=== PATIENT | male | born 1955 | race Caucasian/White ===

== ENCOUNTER 2017-04-15 22:57 | Emergency (ER) | payer OTHER ==
[2017-04-15 23:05] VITALS: BP 140/82; PULSE 98; TEMP 98.1; BMI 28.2
[2017-04-15] MEDS ORDERED: ALBUTEROL SO4 2.5/IPRATROPIUM 0.5 INH SOL 3 ML VIAL.NEB. NEB ONE ×2 (23:41→23:52)
--- NOTE | 2017-04-15 23:41 | PDOC ---
History of Present Illness - General History Source: Patient Exam Limitations: No Limitations - History of Present Illness Initial Comments: 04/15/17 23:46 The patient is a 62 year old male, with a significant past medical history of HTN, HLD, NSTEMI (October 2014, transferred to [facility]) and CT who presents to the emergency department with shortness of breath, chest pain and cough since yesterday. He describes his shortness of breath as worsened with exertion and relieved at rest. He describes his chest pain as a substernal pressure, ranging from mild to moderate, without radiation or modifying factors. He notes that his cough is dry in nature. The patient denies headache and dizziness. Denies fever, chills, nausea, vomit, diarrhea and constipation. Denies dysuria, frequency, urgency and hematuria. Allergies: None Past surgical history: Cardiac stent Social history: Cigarette use ( - 1 pack daily since age 12). No alcohol or drug use reported <Mann Gallo - Last Filed: 04/16/17 01:23> <Deann Mosquera - Last Filed: 04/16/17 01:43> - General Chief Complaint: Asthma Stated Complaint: ASTHMA Time Seen by Provider: 04/15/17 23:29 Past History <Mann Gallo - Last Filed: 04/16/17 01:23> - Past Medical History HTN: Yes - Psycho/Social/Smoking Cessation Hx Anxiety: No Suicidal Ideation: No Smoking History: Never smoked Have you smoked in the past 12 months: No Number of Cigarettes Smoked Daily: 20 Information on smoking cessation initiated: No Hx Alcohol Use: No Drug/Substance Use Hx: No Substance Use Type: None <Deann Mosquera - Last Filed: 04/16/17 01:43> - Past Medical History Allergies/Adverse Reactions: Allergies Allergy/AdvReac Type Severity Reaction Status Date / Time No Known Allergies Allergy Verified 04/15/17 23:05 Home Medications: Ambulatory Orders Valsartan [Diovan] 160 mg PO DAILY 10/05/14 Albuterol Sulfate [Proair Respiclick] 90 mcg IH Q4HWA 04/15/17 Review of Systems - Review of Systems Able to Perform ROS?: Yes Comments:: 04/15/17 23:46 GENERAL/CONSTITUTIONAL: No fever or chills. No weakness. HEAD, EYES, EARS, NOSE AND THROAT: No change in vision. No ear pain or discharge. No sore throat.- CARDIOVASCULAR: (+) chest pain and shortness of breath RESPIRATORY: (+) Cough. No wheezing, or hemoptysis. GASTROINTESTINAL: No nausea, vomiting, diarrhea or constipation. GENITOURINARY: No dysuria, frequency, or change in urination. MUSCULOSKELETAL: No joint or muscle swelling or pain. No neck or back pain. SKIN: No rash NEUROLOGIC: No headache, vertigo, loss of consciousness, or change in strength/ sensation. ENDOCRINE: No increased thirst. No abnormal weight change HEMATOLOGIC/LYMPHATIC: No anemia, easy bleeding, or history of blood clots. ALLERGIC/IMMUNOLOGIC: No hives or skin allergy. <Mann Gallo - Last Filed: 04/16/17 01:23> *Physical Exam - Vital Signs Last Vital Signs Temp Pulse Resp BP Pulse Ox 98.1 F 98 H 16 140/82 99 04/15/17 23:03 04/15/17 23:03 04/15/17 23:03 04/15/17 23:03 04/15/17 23:03 - Physical Exam Comments: 04/15/17 23:46 GENERAL: Awake, alert, and fully oriented HEAD: No signs of trauma, normocephalic, atraumatic EYES: PERRLA, EOMI, sclera anicteric, conjunctiva clear ENT: Auricles normal inspection, hearing grossly normal, nares patent, oropharynx clear without exudates. Moist mucosa NECK: Normal ROM, supple, no lymphadenopathy, JVD, or masses LUNGS: (+) In mild distress, speaks full sentences, wheezing. HEART: Regular rate and rhythm, normal S1 and S2, no murmurs, rubs or gallops, peripheral pulses normal and equal bilaterally. ABDOMEN: Soft, nontender, normoactive bowel sounds. No guarding, no rebound. No masses EXTREMITIES : Normal inspection, Normal range of motion, no edema. No clubbing or cyanosis. NEUROLOGICAL: Cranial nerves II through XII grossly intact. Normal speech, normal gait, no focal sensorimotor deficits SKIN: Warm, Dry, normal turgor, no rashes or lesions noted. <Mann Gallo - Last Filed: 04/16/17 01:23> - Vital Signs Last Vital Signs Temp Pulse Resp BP Pulse Ox 98.1 F 98 H 16 140/82 99 04/15/17 23:03 04/15/17 23:03 04/15/17 23:03 04/15/17 23:03 04/15/17 23:03 <DemetriDeannpaula Branch - Last Filed: 04/16/17 01:43> Heart Score/ECG Review #1 ECG reviewed & interpreted by me at: 00:02 04/15/17 23:52 Ventricular rate: 87 bpm Normal sinus rhythm Possible left atrial enlargement Left ventricular hypertrophy Nonspecific T wave abnormality Prolonged QT <Mann Gallo - Last Filed: 04/16/17 01:23> - History History: Slightly suspicious - Electrocardiogram EKG: Non specific repolarization disturbance - Age Age: 45-65 - Risk Factors Risk Factors Heart Score: Yes Smoking History, Yes Positive family hx of cardiac disease Based on the list above the patient has:: 1-2 risk factors (pt is refusing admission or repeat cardiac enzymes. He wants to leave now) - Troponin Troponin: 1-3x normal limit - Score Heart Score - Total: 4 <Deann Mosquera - Last Filed: 04/16/17 01:43> ED Treatment Course - LABORATORY CBC & Chemistry Diagram: 04/16/17 00:01 04/16/17 00:01 <Mann Gallo - Last Filed: 04/16/17 01:23> - LABORATORY CBC & Chemistry Diagram: 04/16/17 00:01 04/16/17 00:01 <Deann Mosquera - Last Filed: 04/16/17 01:43> Medical Decision Making - Medical Decision Making 04/16/17 01:36 62-year-old male with past medical history of end STEMI, coronary artery disease , hypertension, and a 15 year history of cigarette smoking presents with shortness of breath and chest pain. -pt received aspirin EKG did not show any acute changes from his prior First troponin was 0.07, and His was being admitted to have repeat troponin, cardiac consultation 04/16/17 01:39 Patient has multiple risk factors, he has a history of CAD,non-STEMI, a 50 year history of tobacco use, hypertension, hyperlipidemia The patient states that he was going to work tomorrow and explain to him that he was a grave risk of having a heart attack and possible cardiac arrest. Patient refused hospitalization and to stay for Repeat cardiac enzymes this evening and signed AGAINST MEDICAL ADVICE <Deann Mosquera - Last Filed: 04/16/17 01:43> *DC/Admit/Observation/Transfer - Attestations Scribe Attestion: 04/15/17 23:46 Documentation prepared by Mann Gallo, acting as medical administrative technician for Deann Mosquera MD <Mann Gallo - Last Filed: 04/16/17 01:23> <Deann Mosquera - Last Filed: 04/16/17 01:43> Diagnosis at time of Disposition: Exertional dyspnea, Wheezing Chest pain Qualifiers: Chest pain type: unspecified Qualified Code(s): R07.9 - Chest pain, unspecified - Discharge Dispostion Disposition: AGAINST MEDICAL ADVICE - Referrals Referrals: Vivek Almanza [Primary Care Provider] - - Patient Instructions Additional Instructions: PLEASE SEE YOUR PHYSICIAN SOON POSSIBLE THIS WEEK PLEASE RETURN FOR TREATMENT OF YOUR SYMPTOMS
[2017-04-15] MEDS ORDERED: ASPIRIN 81 MG CHEWABLE TABLETS PO ONE (23:47)
[2017-04-16 00:13] LABS: BASOPHIL 0.5 % (0-2.0); EOSINOPHIL 2.1 % (0-4.5); MCH 31.5 pg (25.7-33.7); MCHC 33.9 g/dl (32.0-35.9); MEAN CELL VOLUME 92.9 fl (80-96); MEAN PLT VOLUME 8.8 fl (7.5-11.1); NEUTROPHILS 65.5 % (42.8-82.8); PLATELET COUNT 162 K/MM3 (134-434); RDW 14.3 % (11.9-15.9); WHITE BLOOD COUNT 8.1 K/mm3 (4.0-10.0)
[2017-04-16 00:26] LABS: INR 1.15 (0.82-1.09); PROTHROMBIN TIME (PATIENT) 12.7 SEC (9.98-11.88)
[2017-04-16] MEDS ORDERED: ASPIRIN 81 MG CHEWABLE TABLETS ONE (00:29)
[2017-04-16 00:36] LABS: ALBUMIN 3.3 g/dl (3.4-5.0); ALK PHOS 64 U/L (45-117); ANION GAP 10 (8-16); BILIRUBIN,TOTAL 0.6 mg/dL (0.2-1.0); CO2 24 mmol/L (21-32); GLUCOSE,RANDOM 109 mg/dL (74-106); SGOT/AST 44 U/L (15-37); SGPT/ALT 50 U/L (12-78); TOT PROT 6.6 g/dl (6.4-8.2)
[2017-04-16 00:38] LABS: TROPONIN I 0.07 ng/ml (0.00-0.05)
[2017-04-16 00:55] LABS: ALLENS TEST POSITIVE; ART PUNCT SITE RIGHT RADIAL; ARTERIAL BLD GAS O2 SATURATION 93.7 % (90-98.9); ARTERIAL BLOOD GAS BASE EXCESS 2.2 meq/l (-2-2); ARTERIAL BLOOD GAS HCO3 26.4 meq/L (22-26); ARTERIAL BLOOD GAS pH 7.42 (7.35-7.45); LPM/O2% 21%; PT. ON O2? NO; TYPE OF O2 R/A
[2017-04-16 00:56] LABS: ARTERIAL BLOOD GAS PO2 66.5 mmHg (80-100)
[2017-04-16] MEDS ORDERED: METOPROLOL TARTRATE 25 MG TABLET (FP) PO ONE (01:38)
[2017-04-16] MEDS ORDERED: FUROSEMIDE 40 MG TABLET (FP) PO ONE (01:38)
[2017-04-16] MEDS ORDERED: METOPROLOL TARTRATE 25 MG TABLET (FP) ONE (01:42)
[2017-04-16] MEDS ORDERED: FUROSEMIDE 40 MG/4 ML INJECTABLE VIAL ONE (01:43)
[2017-04-16] MEDS ORDERED: FUROSEMIDE 40 MG/4 ML INJECTABLE VIAL IVPUSH ONE (01:54)
--- NOTE | 2017-04-16 21:35 | EKG ---
Test Reason : Blood Pressure : / mmHG Vent. Rate : 087 BPM Atrial Rate : 087 BPM P-R Int : 168 ms QRS Dur : 102 ms QT Int : 390 ms P-R-T Axes : 062 030 071 degrees QTc Int : 469 ms NORMAL SINUS RHYTHM POSSIBLE LEFT ATRIAL ENLARGEMENT LEFT VENTRICULAR HYPERTROPHY NONSPECIFIC ST AND T WAVE ABNORMALITY ABNORMAL ECG WHEN COMPARED WITH ECG OF 05-OCT-2014 07:14, VENT. RATE HAS INCREASED Confirmed by MARTHA VASQUEZ, CALLY ([id number]) on 04/16/2017 9:35:06 PM Referred By: Confirmed By:CALLY THOMAS MD
== END 2017-04-16 02:01 | disposition left against medical advice (07) ==
LOC: JER 22:57
PROC: 3E0F7GC Introduction of Other Therapeutic Substance into Respiratory Tract, Via Natural or Artificial Opening (ICD-10-PCS; principal; 2017-04-15)
PROC: 3E033GC Introduction of Other Therapeutic Substance into Peripheral Vein, Percutaneous Approach (ICD-10-PCS; 2017-04-15)
DX: R06.09 Other forms of dyspnea (principal); R06.2 Wheezing; I25.2 Old myocardial infarction; I11.9 Hypertensive heart disease without heart failure; F17.210 Nicotine dependence, cigarettes, uncomplicated
CPT/HCPCS: 36415; 36600; 71010-TC; 80053; 82553; 82803; 83880; 84484; 85025; 85610; 93005; 93010; 99282-25

== ENCOUNTER 2017-07-06 17:44 | Emergency (ER) | payer OTHER ==
--- NOTE | 2017-07-06 17:53 | PDOC ---
History of Present Illness <Issac Harding - Last Filed: 07/06/17 17:53> - General History Source: Patient Exam Limitations: No Limitations - History of Present Illness Initial Comments: 07/06/17 18:02 The patient is a 62 year old male with past medical history of CHF, COPD, and CAD s/p stent a few weeks ago, who is awaiting a pacemaker implant presents to the ED with complaints of worsening shortness of breath. The patient states three days ago he quit smoking because he could not breathe and his shortness of breath was present even at rest. The patient also complains of some cold like symptoms and arrived to the ED covered in [facility]. The patient denies any fever, chills, nausea, vomiting, diarrhea, chest pain, or urinary symptoms. <Marlena Cool - Last Filed: 07/06/17 18:01> <Karlos Olsen - Last Filed: 07/07/17 06:38> - General Chief Complaint: Shortness of Breath Stated Complaint: COUGH & SOB Time Seen by Provider: 07/06/17 17:53 Past History - Past Medical History HTN: Yes - Suicide/Smoking/Psychosocial Hx Smoking History: Never smoked Have you smoked in the past 12 months: No Number of Cigarettes Smoked Daily: 20 Hx Alcohol Use: No Drug/Substance Use Hx: No Substance Use Type: None <Issac Harding - Last Filed: 07/06/17 17:53> <Marlena Cool - Last Filed: 07/06/17 18:01> <Karlos Olsen - Last Filed: 07/07/17 06:38> - Past Medical History Allergies/Adverse Reactions: Allergies Allergy/AdvReac Type Severity Reaction Status Date / Time No Known Allergies Allergy Verified 04/15/17 23:05 Home Medications: Ambulatory Orders Valsartan [Diovan] 160 mg PO DAILY 10/05/14 Albuterol Sulfate [Proair Respiclick] 90 mcg IH Q4HWA 04/15/17 Albuterol Sulfate Inhaler - [Ventolin Hfa Inhaler -] 1 - 2 inh PO Q4H PRN #1 inhaler 04/16/17 Methylprednisolone [Medrol Dose Lupillo] 4 mg PO ASDIR #21 tablet 04/16/17 Azithromycin 250 mg PO DAILY #6 tablet 07/06/17 Beclomethasone Dipropionate [Qvar] 8.7 gm IH BID #1 aer.w.adap 07/06/17 Ipratropium [place] [Atrovent Hfa] 12.9 gm IH QID #1 hfa.aer.ad 07/06/17 Prednisone [Deltasone -] 40 mg PO DAILY #30 tablet 07/06/17 Review of Systems - Review of Systems Able to Perform ROS?: Yes Comments:: 07/06/17 18:02 GENERAL/CONSTITUTIONAL: No fever or chills. No weakness. HEAD, EYES, EARS, NOSE AND THROAT: No change in vision. No ear pain or discharge. No sore throat. CARDIOVASCULAR: No chest pain or shortness of breath. RESPIRATORY: Present: cough, shortness of breath No wheezing, or hemoptysis. GASTROINTESTINAL: No nausea, vomiting, diarrhea or constipation. GENITOURINARY: No dysuria, frequency, or change in urination. MUSCULOSKELETAL: No joint or muscle swelling or pain. No neck or back pain. SKIN: No rash NEUROLOGIC: No headache, vertigo, loss of consciousness, or change in strength/ sensation. ENDOCRINE: No increased thirst. No abnormal weight change. HEMATOLOGIC/LYMPHATIC: No anemia, easy bleeding, or history of blood clots. ALLERGIC/IMMUNOLOGIC: No hives or skin allergy. All Other Systems: Reviewed and Negative <Marlena Cool - Last Filed: 07/06/17 18:01> *Physical Exam - Physical Exam Comments: 07/06/17 18:02 GENERAL: Awake, alert, and fully oriented, in no acute distress HEAD: No signs of trauma EYES: PERRLA, EOMI, sclera anicteric, conjunctiva clear ENT: Auricles normal inspection, hearing grossly normal, nares patent, oropharynx clear without exudates. Moist mucosa NECK: Normal ROM, supple, no lymphadenopathy, JVD, or masses LUNGS: Bilateral wheezing and rhonchi heard in all lung jasso. No crackles HEART: Regular rate and rhythm, normal S1 and S2, no murmurs, rubs or gallops ABDOMEN: Soft, nontender, normoactive bowel sounds. No guarding, no rebound. No masses EXTREMITIES: Normal range of motion, no edema. No clubbing or cyanosis. No cords, erythema, or tenderness NEUROLOGICAL: Cranial nerves II through XII grossly intact. Normal speech, normal gait SKIN: Warm, Dry, normal turgor, no rashes or lesions noted. <Marlena Cool - Last Filed: 07/06/17 18:01> - Vital Signs Last Vital Signs Temp Pulse Resp BP Pulse Ox 89 22 147/77 94 L 07/06/17 19:13 07/06/17 19:13 07/06/17 19:13 07/06/17 19:13 <Karlos Olsen - Last Filed: 07/07/17 06:38> ED Treatment Course - LABORATORY CBC & Chemistry Diagram: 07/06/17 18:15 07/06/17 18:15 - ADDITIONAL ORDERS Additional order review: Laboratory Results 07/06/17 07/06/17 07/06/17 18:39 18:15 18:15 PT with INR INR Sodium 135 L Potassium 3.5 Chloride 102 Carbon Dioxide 25 Anion Gap 8 BUN 13 Creatinine 1.1 Creat Clearance w eGFR > 60 Random Glucose 105 Lactic Acid 1.1 Calcium 8.7 Total Bilirubin 0.8 AST 50 H ALT 50 H Alkaline Phosphatase 54 Creatine Kinase 193 Creatine Kinase Index 0.9 CK-MB (CK-2) 1.8 Troponin I 0.05 B-Natriuretic Peptide 825.69 H Total Protein 7.3 Albumin 3.8 Urine Color Yellow Urine Appearance Clear Urine pH 6.0 Ur Specific [place] 1.020 Urine Protein 1+ H Urine Glucose (UA) Negative Urine Ketones Trace Urine Blood Trace-intact H Urine Nitrite Negative Urine Bilirubin Negative Urine Urobilinogen 2.0 Ur Leukocyte Esterase Negative 07/06/17 18:15 PT with INR 13.1 H INR 1.17 Sodium Potassium Chloride Carbon Dioxide Anion Gap BUN Creatinine Creat Clearance w eGFR Random Glucose Lactic Acid Calcium Total Bilirubin AST ALT Alkaline Phosphatase Creatine Kinase Creatine Kinase Index CK-MB (CK-2) Troponin I B-Natriuretic Peptide Total Protein Albumin Urine Color Urine Appearance Urine pH Ur Specific [place] Urine Protein Urine Glucose (UA) Urine Ketones Urine Blood Urine Nitrite Urine Bilirubin Urine Urobilinogen Ur Leukocyte Esterase 07/06/17 18:15 Influenza Types A,B Antigen (VINAY) - Final Nasopharyngeal Swab - Final 07/06/17 18:15 RBC 5.10 MCV 91.1 MCHC 33.6 RDW 13.8 MPV 9.6 Neutrophils % 68.1 Lymphocytes % 18.5 Monocytes % 11.7 H Eosinophils % 1.5 Basophils % 0.2 - Medications Given in the ED: ED Medications Discontinued Medications Generic Name Dose Route Start Last Admin Trade Name Julio C PRN Reason Stop Dose Admin Albuterol Sulfate 2 amp 07/06/17 17:56 07/06/17 18:41 Ventolin 0.083% Nebulizer Soln - NEB 07/06/17 17:57 2 amp ONCE ONE Administration Albuterol Sulfate 1 amp 07/06/17 20:08 07/06/17 20:11 Ventolin 0.083% Nebulizer Soln - NEB 07/06/17 20:09 1 amp NOW ONE Administration Albuterol/Ipratropium 1 amp 07/06/17 17:55 07/06/17 18:41 Duoneb - NEB 07/06/17 17:56 1 amp ONCE ONE Administration Azithromycin 500 mg 07/06/17 17:56 07/06/17 18:41 Zithromax - PO 07/06/17 17:57 500 mg ONCE ONE Administration Ceftriaxone Sodium 1,000 mg/ 50 mls @ 100 mls/hr 07/06/17 17:56 07/06/17 18: 41 Dextrose IVPB 07/06/17 18:25 100 mls/hr ONCE ONE Administration Magnesium Sulfate 2 gm 07/06/17 17:54 07/06/17 18:41 Magnesium Sulfate IVPB 07/06/17 17:55 2 gm ONCE ONE Administration Methylprednisolone Sodium Succinate 125 mg 07/06/17 17:54 07/06/17 18:41 Solu-Medrol - IVPUSH 07/06/17 17:55 125 mg ONCE ONE Administration <Karlos Olsen - Last Filed: 07/07/17 06:38> Medical Decision Making - Medical Decision Making 07/07/17 06:37 pt refused admission. my concern about dc dw patient extensively pe c/w asthma more than APE--prescriptions sent for latter <Karlos Olsen - Last Filed: 07/07/17 06:38> *DC/Admit/Observation/Transfer - Attestations Physician Attestion: 07/06/17 17:53 I, Dr. Issac Harding, attest that this document has been prepared under my direction and personally reviewed by me in its entirety. I further attest, that it accurately reflects all work, treatment, procedures and medical decision -making performed by me. <Issac Harding - Last Filed: 07/06/17 17:53> - Attestations Scribe Attestion: 07/06/17 18:04 Documentation prepared by Marlena Cool, acting as medical education manager for Issac Harding DO. <Marlena Cool - Last Filed: 07/06/17 18:01> - Discharge Dispostion Admit: No <Karlos Olsen - Last Filed: 07/07/17 06:38> Diagnosis at time of Disposition: COPD exacerbation - Discharge Dispostion Disposition: AGAINST MEDICAL ADVICE Condition at time of disposition: Fair - Prescriptions Prescriptions: Azithromycin 250 mg PO DAILY #6 tablet Beclomethasone Dipropionate [Qvar] 8.7 gm IH BID #1 aer.w.adap Ipratropium [place] [Atrovent Hfa] 12.9 gm IH QID #1 hfa.aer.ad Prednisone [Deltasone -] 40 mg PO DAILY #30 tablet - Referrals Referrals: Vivek Almanza [Primary Care Provider] - - Patient Instructions Printed Discharge Instructions: Serious Ways to Stop Smoking, DI for Asthma -- Adult - Post Discharge Activity
[2017-07-06] MEDS ORDERED: MAGNESIUM SULF 50% (8.12 MEQ/2 ML-1 GM VIAL) IVPB ONE (17:54)
[2017-07-06] MEDS ORDERED: methylPREDNISolone NA SUCC 125 MG/2 ML VIAL IVPUSH ONE (17:54)
[2017-07-06] MEDS ORDERED: ALBUTEROL SO4 2.5/IPRATROPIUM 0.5 INH SOL 3 ML VIAL.NEB. NEB ONE (17:55)
[2017-07-06] MEDS ORDERED: AZITHROMYCIN 250 MG TABLET PO ONE (17:56)
[2017-07-06] MEDS ORDERED: ALBUTEROL SO4 0.083% IH SOL 2.5 MG/3 ML VIAL.NEB. NEB ONE ×3 (17:56→20:09)
[2017-07-06] MEDS ORDERED: CEFTRIAXONE 1,000 MG in DEXTROSE 5%-WATER - 50 ML IVPB ONE (17:56)
[2017-07-06] MEDS ORDERED: SODIUM CHLORIDE 1,000 ML IV SCH (18:15)
[2017-07-06] MEDS ORDERED: methylPREDNISolone NA SUCC 125 MG/2 ML VIAL ONE (18:27)
[2017-07-06] MEDS ORDERED: MAGNESIUM SULF 50% (8.12 MEQ/2 ML-1 GM VIAL) ONE (18:28)
[2017-07-06] MEDS ORDERED: AZITHROMYCIN 500 MG TABLET ONE (18:28)
[2017-07-06] MEDS ORDERED: cefTRIAXone SODIUM 1 GM VIAL ONE (18:28)
[2017-07-06 18:45] LABS: INR 1.17 (0.82-1.09); PROTHROMBIN TIME (PATIENT) 13.1 SEC (10.2-13.0)
[2017-07-06 18:47] LABS: BASOPHIL 0.2 % (0-2.0); EOSINOPHIL 1.5 % (0-4.5); MCH 30.6 pg (25.7-33.7); MCHC 33.6 g/dl (32.0-35.9); MEAN CELL VOLUME 91.1 fl (80-96); MEAN PLT VOLUME 9.6 fl (7.5-11.1); NEUTROPHILS 68.1 % (42.8-82.8); PLATELET COUNT 150 K/MM3 (134-434); RDW 13.8 % (11.9-15.9); WHITE BLOOD COUNT 5.6 K/mm3 (4.0-10.8)
[2017-07-06 18:48] VITALS: BMI 28.0
[2017-07-06 18:50] LABS: ALBUMIN 3.8 g/dl (3.5-5.0); ALK PHOS 54 U/L (32-92); ANION GAP 8 (8-16); BILIRUBIN,TOTAL 0.8 mg/dl (0.2-1.0); CALCIUM 8.7 mg/dl (8.4-10.2); CO2 25 mmol/L (22-28); CPK 193 IU/L (39-308); CREATININE 1.1 mg/dl (0.6-1.3); GLUCOSE,RANDOM 105 mg/dl (74-106); SGOT/AST 50 U/L (10-42); SGPT/ALT 50 U/L (10-40); TOT PROT 7.3 g/dl (6.4-8.3)
[2017-07-06 18:58] LABS: URINE APPEARANCE Clear; URINE BILIRUBIN Negative (NEGATIVE); URINE GLUCOSE (UA) Negative (NEGATIVE); URINE KETONE Trace (NEGATIVE); URINE LEUK ESTERASE Negative (NEGATIVE); URINE NITRITE Negative (NEGATIVE)
[2017-07-06 18:59] LABS: URINE BLOOD Trace-intact (NEGATIVE); URINE PROTEIN 1+ (NEGATIVE)
[2017-07-06 19:00] LABS: URINE COLOR YELLOW
[2017-07-06 19:14] VITALS: BP 147/77; PULSE 89
[2017-07-06 20:25] LABS: TROPONIN I (DFP) 0.05 ng/ml (0.03-0.50)
[2017-07-06] MEDS ORDERED: ALBUTEROL SO4 18 GM HFA INHALER IH PRN (20:56)
[2017-07-06 21:37] LABS: URINE BACTERIA FEW /hpf (NEGATIVE); URINE WBC 0-2 (0-2)
--- NOTE | 2017-07-07 19:35 | EKG ---
Test Reason : Blood Pressure : / mmHG Vent. Rate : 091 BPM Atrial Rate : 091 BPM P-R Int : 168 ms QRS Dur : 100 ms QT Int : 360 ms P-R-T Axes : 067 007 061 degrees QTc Int : 442 ms NORMAL SINUS RHYTHM POSSIBLE LEFT ATRIAL ENLARGEMENT LEFT VENTRICULAR HYPERTROPHY Delayed R wave progression NONSPECIFIC ST AND T WAVE ABNORMALITY ABNORMAL ECG WHEN COMPARED WITH ECG OF 15-APR-2017 23:52, NO SIGNIFICANT CHANGE WAS FOUND Confirmed by THEO PICKENS MD ([id number]) on 07/07/2017 7:35:25 PM Referred By: MD WOOTEN Confirmed By:THEO PICKENS MD
== END 2017-07-06 21:11 | disposition left against medical advice (07) ==
LOC: FER 17:44
PROC: 3E0F7GC Introduction of Other Therapeutic Substance into Respiratory Tract, Via Natural or Artificial Opening (ICD-10-PCS; principal; 2017-07-06)
PROC: 3E03329 Introduction of Other Anti-infective into Peripheral Vein, Percutaneous Approach (ICD-10-PCS; 2017-07-06)
PROC: 3E033GC Introduction of Other Therapeutic Substance into Peripheral Vein, Percutaneous Approach (ICD-10-PCS; 2017-07-06)
PROC: 3E0337Z Introduction of Electrolytic and Water Balance Substance into Peripheral Vein, Percutaneous Approach (ICD-10-PCS; 2017-07-06)
DX: J44.1 Chronic obstructive pulmonary disease with (acute) exacerbation (principal); I50.9 Heart failure, unspecified; I25.10 Atherosclerotic heart disease of native coronary artery without angina pectoris; I10 Essential (primary) hypertension
CPT/HCPCS: 36415; 71010-TC; 80053; 81003; 81015; 82550; 82553; 83605; 83880; 84484; 85025; 85610; 87040; 87086; 87804; 93005; 99284-25

== ENCOUNTER 2017-08-23 02:08 | Emergency (ER) | payer OTHER ==
[2017-08-23] MEDS ORDERED: ALBUTEROL SO4 2.5/IPRATROPIUM 0.5 INH SOL 3 ML VIAL.NEB. NEB ONE ×2 (02:15→02:20)
--- NOTE | 2017-08-23 02:15 | PDOC ---
History of Present Illness - General Chief Complaint: Asthma Stated Complaint: DIFF BREATHING Time Seen by Provider: 08/23/17 02:12 - History of Present Illness Initial Comments: This 62-year-old man with a history of COPD/hypertension/hyperlipidemia/CHF who was scheduled to have pacemaker inserted (patient is not sure why this will be performed) presents with 4 day history of progressive shortness of breath. Patient states that he had nonproductive cough prior to the onset of shortness of breath. No fever/chills. He denies chest pain or palpitations. Patient has been seen in the past with similar episodes shortness of breath. He states he has been taking his medications as prescribed although he states that he "does not like going to doctors". He has taken his inhaler several times this evening without relief of his shortness of breath. Past History - Past Medical History Allergies/Adverse Reactions: Allergies Allergy/AdvReac Type Severity Reaction Status Date / Time No Known Allergies Allergy Verified 04/15/17 23:05 Home Medications: Ambulatory Orders Valsartan [Diovan] 160 mg PO DAILY 10/05/14 Albuterol Sulfate [Proair Respiclick] 90 mcg IH Q4HWA 04/15/17 Albuterol Sulfate Inhaler - [Ventolin Hfa Inhaler -] 1 - 2 inh PO Q4H PRN #1 inhaler 04/16/17 Methylprednisolone [Medrol Dose Lupillo] 4 mg PO ASDIR #21 tablet 04/16/17 Azithromycin 250 mg PO DAILY #6 tablet 07/06/17 Beclomethasone Dipropionate [Qvar] 8.7 gm IH BID #1 aer.w.adap 07/06/17 Ipratropium [place] [Atrovent Hfa] 12.9 gm IH QID #1 hfa.aer.ad 07/06/17 Prednisone [Deltasone -] 40 mg PO DAILY #30 tablet 07/06/17 Azithromycin [Zithromax 250mg Tablets -] 250 mg PO UTDICT #6 tab 08/23/17 Methylprednisolone [Medrol Dose Lupillo] 4 mg PO ASDIR #21 tablet 08/23/17 COPD: Yes HTN: Yes Hypercholesterolemia: Yes - Suicide/Smoking/Psychosocial Hx Smoking History: Never smoked Have you smoked in the past 12 months: No Number of Cigarettes Smoked Daily: 20 'Breaking Loose' booklet given: 07/06/17 Hx Alcohol Use: No Drug/Substance Use Hx: No Substance Use Type: None Review of Systems - Review of Systems Able to Perform ROS?: Yes Comments:: 12 point review of systems is negative except for what is noted in the history of present illness *Physical Exam - Physical Exam Comments: GENERAL: Adult male, complaining of shortness of breath, speaking in sentences fragments HEAD: Normal with no signs of trauma. EYES: PERRLA, EOMI, sclera anicteric, conjunctiva clear. ENT: Ears normal, nares patent, oropharynx clear without exudates. Dry mucous membranes. NECK: Normal range of motion, supple without lymphadenopathy, JVD, or masses. LUNGS: Breath sounds equal, expiratory crackles at bases bilaterally ,no wheezes , and no crackles. HEART:Regular rate and rhythm, normal S1 and S2 without murmur, rub or gallop. ABDOMEN:.normal bowel sounds No guarding,tenderness or rebound.No masses No distention. EXTREMITIES: Normal range of motion, no edema. No clubbing or cyanosis. No erythema, or tenderness. NEUROLOGICAL: Cranial nerves II through XII grossly intact. Normal speech. No focal neurological deficits. MUSCULOSKELETAL: Back non-tender to palpation, no CVA tenderness SKIN: Warm, Dry, normal turgor, no rashes or lesions noted ED Treatment Course - LABORATORY CBC & Chemistry Diagram: 08/23/17 02:00 08/23/17 02:00 Medical Decision Making - Medical Decision Making No wheezing heard on initial auscultation. He did have bilateral expiratory crackles at the bases. After first DuoNeb treatment, expiratory wheezing was heard. Patient felt somewhat better after 1 DuoNeb treatment. Patient given second DuoNeb treatment. Solu-Medrol 125 mg IV administered. Patient is markedly improved after 2 DuoNeb treatments and IV Solu-Medrol. He is now speaking in full sentences without any respiratory distress. He denies any chest pain/further shortness of breath. He is not coughing. Laboratory evaluation notable for BNP of 2745. Although he has had elevated BNP is in the past during his workups here in the ER, this is higher value than previously. Troponin is also 0.06. Patient has mildly elevated troponins chronically. Patient wishes to be discharged stating that he will follow-up with his general medical doctor in [place] within 48 hours. Patient will be given medications for his acute exacerbation of COPD: Medrol Dosepak as well as azithromycin Z-Lupillo. Meanwhile, he should continue his medications as previously prescribed. He should return to the emergency room if he has worsening shortness of breath or develops chest pain/palpitations *DC/Admit/Observation/Transfer Diagnosis at time of Disposition: COPD exacerbation CHF (congestive heart failure) Qualifiers: Congestive heart failure type: unspecified Congestive heart failure chronicity : chronic Qualified Code(s): I50.9 - Heart failure, unspecified - Discharge Dispostion Disposition: HOME Condition at time of disposition: Stable - Prescriptions Prescriptions: Azithromycin [Zithromax 250mg Tablets -] 250 mg PO UTDICT #6 tab Methylprednisolone [Medrol Dose Lupillo] 4 mg PO ASDIR #21 tablet - Referrals - Patient Instructions Printed Discharge Instructions: Chronic Obstructive Pulmonary Disease Additional Instructions: Azithromycin daily for the next 5 days as directed Medrol Dosepak taper; started today Continue all other medications as previously prescribed Follow-up with your general doctor within the next 48 hours No work for the next 2 days Return to ER if you have severe shortness of breath/cough/fever/chest pain - Post Discharge Activity Forms/Work/School Notes: Back to Work
[2017-08-23] MEDS ORDERED: methylPREDNISolone NA SUCC 125 MG/2 ML VIAL IVPB ONE (02:21)
[2017-08-23 02:22] VITALS: BP 156/97; PULSE 90; TEMP 98.1; BMI 31.4
[2017-08-23] MEDS ORDERED: methylPREDNISolone NA SUCC 125 MG/2 ML VIAL ONE (02:32)
[2017-08-23 02:58] LABS: BASO % 0.5 % (0-2.0); EOS % 0.9 % (0-4.5); HEMOGLOBIN 13.4 GM/dL (11.7-16.9); LYMPH % 26.8 % (8-40); MCH 31.5 pg (25.7-33.7); MCHC 32.7 g/dl (32.0-35.9); MEAN CELL VOLUME 96.3 fl (80-96); MEAN PLT VOLUME 9.4 fl (7.5-11.1); MONO % 8.2 % (3.8-10.2); NEUT % 63.6 % (42.8-82.8); PLATELET COUNT 172 K/MM3 (134-434); RBC 4.26 M/mm3 (4.00-5.60); RDW 15.4 % (11.9-15.9); WHITE BLOOD COUNT 8.2 K/mm3 (4.0-10.0)
[2017-08-23 03:21] LABS: ALBUMIN 3.6 g/dl (3.4-5.0); ANION GAP 9 (8-16); BLOOD UREA NITROGEN 20 mg/dL (7-18); CALCIUM 8.8 mg/dL (8.5-10.1); CHLORIDE 110 mmol/L (98-107); CO2 27 mmol/L (21-32); CREATININE 1.2 mg/dL (0.7-1.3); GLUCOSE,RANDOM 113 mg/dL (74-106); POTASSIUM 3.7 mmol/L (3.5-5.1); SGOT/AST 50 U/L (15-37); SGPT/ALT 61 U/L (12-78); SODIUM 146 mmol/L (136-145); TOT PROT 7.8 g/dl (6.4-8.2)
[2017-08-23 03:24] LABS: ALK PHOS 71 U/L (45-117); BILIRUBIN,TOTAL 0.5 mg/dL (0.2-1.0)
== END 2017-08-23 05:29 | disposition home or self-care (01) ==
LOC: FER 02:08
PROC: 3E0F7GC Introduction of Other Therapeutic Substance into Respiratory Tract, Via Natural or Artificial Opening (ICD-10-PCS; principal; 2017-08-23)
PROC: 3E033GC Introduction of Other Therapeutic Substance into Peripheral Vein, Percutaneous Approach (ICD-10-PCS; 2017-08-23)
DX: I50.9 Heart failure, unspecified (principal); J44.1 Chronic obstructive pulmonary disease with (acute) exacerbation
CPT/HCPCS: 36415; 80053; 82550; 83880; 84484; 85025; 99282-25

== ENCOUNTER 2017-11-07 21:27 | Emergency (ER) | payer OTHER ==
[2017-11-07 21:43] VITALS: BP 146/96; PULSE 91; TEMP 97.9; BMI 30.7
[2017-11-07] MEDS ORDERED: FUROSEMIDE 40 MG/4 ML INJECTABLE VIAL IVPUSH ONE (21:47)
--- NOTE | 2017-11-07 21:47 | PDOC ---
History of Present Illness - General History Source: Patient Exam Limitations: No Limitations - History of Present Illness Initial Comments: 11/07/17 22:20 The patient is a 62 year old male with a significant PMH of COPD, CHF, NSTEMI, HTN, hyperlipidemia, and cigarette use who presents to the emergency department with increased shortness of breath and bilateral LE swelling and LE tightness beginning 4 days ago. The patient notes dyspnea with minimal exertion and associated chest tightness. He denies chest pain. The patient also notes mild nausea but denies vomiting. The patient denies changes in ambulation ability. The patient denies headache and dizziness. Denies fever, chills,, vomit, diarrhea and constipation. Denies dysuria, frequency, urgency and hematuria. Allergies: NKA Past surgical history: None reported. Social history: Cigarette use. No reported alcohol or drug use. PCP: Dr. Vivek Almanza <Crow Weber - Last Filed: 11/07/17 22:33> - General History Source: Patient <Mann Paniagua - Last Filed: 11/07/17 23:44> - General Chief Complaint: Shortness of Breath Stated Complaint: SWELLING, PAIN Time Seen by Provider: 11/07/17 21:45 Past History <Crow Weber - Last Filed: 11/07/17 22:33> - Past Medical History Asthma: Yes COPD: Yes HTN: Yes Hypercholesterolemia: Yes - Suicide/Smoking/Psychosocial Hx Smoking History: Former smoker Have you smoked in the past 12 months: No Number of Cigarettes Smoked Daily: 20 Information on smoking cessation initiated: No 'Breaking Loose' booklet given: 07/06/17 Hx Alcohol Use: No Drug/Substance Use Hx: No Substance Use Type: None <Mann Paniagua - Last Filed: 11/07/17 23:44> - Past Medical History Allergies/Adverse Reactions: Allergies Allergy/AdvReac Type Severity Reaction Status Date / Time No Known Allergies Allergy Verified 04/15/17 23:05 Home Medications: Ambulatory Orders Albuterol Sulfate Inhaler - [Ventolin Hfa Inhaler -] 1 - 2 inh PO QID PRN Aspirin 81 mg PO DAILY 11/07/17 Carvedilol [Coreg -] 12.5 mg PO BID 11/07/17 Doxylamine Succinate [Unisom Sleep Aid] 25 mg PO HS PRN 11/07/17 Fluticasone/Salmeterol [Advair Hfa 115-21 Mcg Inhaler] 1 inh PO BID 11/07/17 Fluticasone/Umeclidin/Vilanter [Trelegy Ellipta 100-62.5-25] 1 each IH ASDIR 11/21 Furosemide [Lasix -] 20 mg PO DAILY #60 tablet 11/07/17 Ipratropium [place] [Atrovent Hfa] 12.9 gm IH BID 11/07/17 Metoprolol Succinate [Toprol Xl -] 25 mg PO DAILY 11/07/17 Ubidecarenone [Co Q-10] 75 mg PO DAILY 11/07/17 Review of Systems - Review of Systems Able to Perform ROS?: Yes Comments:: 11/07/17 22:21 CONSTITUTIONAL: Absent: fever, chills, diaphoresis, generalized weakness, malaise, loss of appetite HEENT: Absent: rhinorrhea, nasal congestion, throat pain, throat swelling, difficulty swallowing, mouth swelling, ear pain, eye pain, visual Changes CARDIOVASCULAR: Absent: chest pain, syncope, palpitations, irregular heart rate, lightheadedness , peripheral edema RESPIRATORY: (+) Shortness of breath w/ associated chest tightness. (+) Dyspnea on exertion. Absent: cough,orthopnea, wheezing, stridor, hemoptysis GASTROINTESTINAL: (+) Nausea. Absent: abdominal pain, abdominal distension, vomiting, diarrhea, constipation, melena, hematochezia GENITOURINARY: Absent: dysuria, frequency, urgency, hesitancy, hematuria, flank pain, genital pain MUSCULOSKELETAL: (+)Bilateral LE swelling and tightness. Absent: myalgia, arthralgia, joint swelling SKIN: Absent: rash, itching, pallor HEMATOLOGIC/IMMUNOLOGIC: Absent: easy bleeding, easy bruising, lymphadenopathy, frequent infections ENDOCRINE: Absent: unexplained weight gain, unexplained weight loss, heat intolerance, cold intolerance NEUROLOGIC: Absent: headache, focal weakness or paresthesias, dizziness, unsteady gait, seizure, mental status changes, bladder or bowel incontinence PSYCHIATRIC: Absent: anxiety, depression, suicidal or homicidal ideation, hallucinations. <Crow Weber - Last Filed: 11/07/17 22:33> *Physical Exam - Vital Signs Last Vital Signs Temp Pulse Resp BP Pulse Ox 97.9 F 91 H 28 H 146/96 96 11/07/17 21:41 11/07/17 21:41 11/07/17 21:41 11/07/17 21:41 11/07/17 21:41 - Physical Exam Comments: 11/07/17 22:21 GENERAL: Well developed, well nourished. Awake and alert. No acute distress. HEENT: Normocephalic, atraumatic. PERRLA, EOMI. No conjunctival pallor. Sclera are non- icteric. Moist mucous membranes. Oropharynx is clear. NECK: Supple. Full ROM. No JVD. Carotid pulses 2+ and symmetric, without bruits. No thyromegaly. No lymphadenopathy. CARDIOVASCULAR: Regular rate and rhythm. No murmurs, rubs, or gallops. Distal pulses are 2+ and symmetric. PULMONARY: No evidence of respiratory distress. Lungs clear to auscultation bilaterally. No wheezing, rales or rhonchi. ABDOMINAL: Soft. Non-tender. Non-distended. No rebound or guarding. No organomegaly. Normoactive bowel sounds. MUSCULOSKELETAL: Normal range of motion at all joints. No bony deformities or tenderness. No CVA tenderness. EXTREMITIES: (+) +1 pitting edema bilaterally to LE. No cyanosis. No clubbing. No edema. No calf tenderness. SKIN: Warm and dry. Normal capillary refill. No rashes. No jaundice. NEUROLOGICAL: Alert, awake, appropriate. Cranial nerves 2-12 intact. No deficits to light touch and temperature in face, upper extremities and lower extremities. No motor deficits in the in face, upper extremities and lower extremities. Normoreflexic in the upper and lower extremities. Normal speech. Toes are downgoing bilaterally. Gait is normal without ataxia. PSYCHIATRIC: Cooperative. Good eye contact. Appropriate mood and affect. <Crow Weber - Last Filed: 11/07/17 22:33> - Vital Signs Last Vital Signs Temp Pulse Resp BP Pulse Ox 97.9 F 91 H 28 H 146/96 96 11/07/17 21:41 11/07/17 21:41 11/07/17 21:41 11/07/17 21:41 11/07/17 21:41 <Mann Paniagua - Last Filed: 11/07/17 23:44> ED Treatment Course - LABORATORY CBC & Chemistry Diagram: 11/07/17 21:44 11/07/17 21:44 <Crow Weber - Last Filed: 11/07/17 22:33> - LABORATORY CBC & Chemistry Diagram: 11/07/17 21:44 11/07/17 21:44 <Mann Paniagua - Last Filed: 11/07/17 23:44> Medical Decision Making - Medical Decision Making 11/07/17 22:33 EKG done at 21:45 Vent rate 84 bpm Normal sinus rhythm Possible left atrial enlargement Anterior infarct, age undetermined Abnormal ECG <Crow Weber - Last Filed: 11/07/17 22:33> - Medical Decision Making 11/07/17 23:39 Dr. Paniagua: The scribe's documentation has been prepared under my direction and personally reviewed by me in its entirery. I confirm that the note above accurately reflects all work, treatment, procedures, and medical decision making performed by me. Pt labs just show a bit of elevation in the BNP. Pt will be suggested to take his Lasix twice daily for 3 days. Follow up with his primary care <Mann Paniagua - Last Filed: 11/07/17 23:44> *DC/Admit/Observation/Transfer - Attestations Scribe Attestion: 11/07/17 22:21 Documentation prepared by Crow Weber, acting as medical care administrator for Mann Paniagua DO. <Crow Weber - Last Filed: 11/07/17 22:33> - Discharge Dispostion Admit: No <Mann Paniagua - Last Filed: 11/07/17 23:44> Diagnosis at time of Disposition: CHF (congestive heart failure) - Discharge Dispostion Disposition: HOME Condition at time of disposition: Stable - Prescriptions Prescriptions: Furosemide [Lasix -] 20 mg PO DAILY #60 tablet - Referrals Referrals: Vivek Almanza [Primary Care Provider] - - Patient Instructions Printed Discharge Instructions: DI for Heart Failure Additional Instructions: Please follow up with your doctor as soon as possible. Take your Lasix 20mg once in the morning, once in the evening for 3 days. eat a Banana or drink a glass of orange juice during those days - Post Discharge Activity
[2017-11-07] MEDS ORDERED: FUROSEMIDE 40 MG/4 ML INJECTABLE VIAL ONE (22:06)
[2017-11-07 22:33] LABS: BASO % 0.3 % (0-2.0); EOS % 1.2 % (0-4.5); HEMATOCRIT 37.3 % (35.4-49); HEMOGLOBIN 12.4 GM/dL (11.7-16.9); MCH 30.7 pg (25.7-33.7); MCHC 33.3 g/dl (32.0-35.9); MEAN CELL VOLUME 92.4 fl (80-96); MONO % 11.6 % (3.8-10.2); NEUT % 64.9 % (42.8-82.8); PLATELET COUNT 134 K/MM3 (134-434); RBC 4.03 M/mm3 (4.00-5.60); RDW 14.7 % (11.9-15.9); WHITE BLOOD COUNT 5.8 K/mm3 (4.0-10.0)
[2017-11-07 23:00] LABS: INR 1.21 (0.82-1.09); PROTHROMBIN TIME (PATIENT) 13.7 SEC (9.98-11.88)
[2017-11-07 23:05] LABS: ANION GAP 6 (8-16); BILIRUBIN,TOTAL 0.5 mg/dL (0.2-1.0); BLOOD UREA NITROGEN 22 mg/dL (7-18); CALCIUM 8.3 mg/dL (8.5-10.1); CHLORIDE 107 mmol/L (98-107); CO2 32 mmol/L (21-32); CREATININE 1.4 mg/dL (0.7-1.3); GLUCOSE,RANDOM 133 mg/dL (74-106); POTASSIUM 3.6 mmol/L (3.5-5.1); SGOT/AST 66 U/L (15-37); SGPT/ALT 52 U/L (12-78); SODIUM 145 mmol/L (136-145); TOT PROT 6.7 g/dl (6.4-8.2)
[2017-11-07 23:07] LABS: ALK PHOS 69 U/L (45-117); N-TERMINAL BNP 2369.19 pg/ml (5-125)
--- NOTE | 2017-11-08 11:05 | EKG ---
Test Reason : Blood Pressure : / mmHG Vent. Rate : 084 BPM Atrial Rate : 084 BPM P-R Int : 154 ms QRS Dur : 108 ms QT Int : 384 ms P-R-T Axes : 055 009 116 degrees QTc Int : 453 ms NORMAL SINUS RHYTHM POSSIBLE LEFT ATRIAL ENLARGEMENT ANTERIOR INFARCT (CITED ON OR BEFORE 07-NOV-2017) ABNORMAL ECG WHEN COMPARED WITH ECG OF 06-JUL-2017 19:16, T WAVE AMPLITUDE HAS DECREASED IN ANTERIOR LEADS Confirmed by ADIA MIMS MD ([id number]) on 11/08/2017 11:05:28 AM Referred By: Confirmed By:ADIA MIMS MD
== END 2017-11-07 23:58 | disposition home or self-care (01) ==
LOC: JER 21:27
PROC: 3E033GC Introduction of Other Therapeutic Substance into Peripheral Vein, Percutaneous Approach (ICD-10-PCS; principal; 2017-11-07)
DX: I50.9 Heart failure, unspecified (principal); J44.9 Chronic obstructive pulmonary disease, unspecified; I10 Essential (primary) hypertension; E78.5 Hyperlipidemia, unspecified; F17.210 Nicotine dependence, cigarettes, uncomplicated
CPT/HCPCS: 36415; 80053; 82550; 82553; 83880; 84484; 85025; 85610; 93005; 93010; 93970-TC; 99284-25

== ENCOUNTER 2018-11-26 21:57 | Inpatient (IN) | payer OTHER ==
--- NOTE | 2018-11-26 22:37 | PDOC ---
History of Present Illness - General Chief Complaint: Chest Pain Stated Complaint: CHEST PAIN SOB - History of Present Illness Initial Comments: The pt is a 63M w/ a history of COPD/asthma, CHF s/p AICD, NSTEMI, HTN, hyperlipidemia, and cigarette use presenting which acute on chronic SOB, chest pain, and abdominal pain. Reports SOB despite inhaler use. Chest pain is with exertion and at rest, substernal, pain that is non- radiating. SOB is usually with exertion but he also experiences SOB related to his asthma that is generally controlled by his inhaler. Over the last two days his inhalers have been inadequate. Abdominal pain is RUQ, worse post-prandially, cramping, non-radiating, not associated with N/V/C/D. Pain is worse with movement and touch. Pt tried taking 'part of a percocet' with minimal relief. Pt was to be evaluated by GI for chronic RUQ pain but has yet to be able to make it to an appointment. Denies fevers/chills, ADEN, vision changes, N/V/C/D, dysuria, hematuria, or blood in his stool. Pt reports he was diagnosed with HCV 11/26/18 22:52 Past History - Past Medical History Allergies/Adverse Reactions: Allergies Allergy/AdvReac Type Severity Reaction Status Date / Time No Known Allergies Allergy Verified 11/26/18 22:03 Home Medications: Ambulatory Orders Albuterol Sulfate Inhaler - [Ventolin Hfa Inhaler -] 1 - 2 inh PO QID PRN Aspirin 81 mg PO DAILY 11/07/17 Carvedilol [Coreg -] 12.5 mg PO BID 11/07/17 Fluticasone/Salmeterol [Advair Hfa 115-21 Mcg Inhaler] 1 inh PO BID 11/07/17 Furosemide [Lasix -] 20 mg PO DAILY #60 tablet 11/07/17 Ipratropium [place] [Atrovent Hfa] 12.9 gm IH BID 11/07/17 Atorvastatin Ca [Lipitor] 20 mg PO DAILY 11/27/18 Sacubitril/Valsartan [Entresto 49 mg-51 mg Tablet] 1 each PO DAILY 11/27/18 Asthma: Yes COPD: Yes HTN: Yes Hypercholesterolemia: Yes - Surgical History 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 No weakness HEAD, EYES, EARS, NOSE AND THROAT: No change in vision. No ear pain or discharge. No sore throat CARDIOVASCULAR: No chest pain RESPIRATORY: Denies hemoptysis GENITOURINARY: No dysuria, frequency, or change in urination MUSCULOSKELETAL: No joint or muscle swelling or pain. No neck or back pain SKIN: No rash NEUROLOGIC: No vertigo, loss of consciousness, or change in strength/sensation ENDOCRINE: No increased thirst. No abnormal weight change ALLERGIC/IMMUNOLOGIC: No hives or skin allergy 11/26/18 22:37 Is the patient limited [place] Citizen proficient: No *Physical Exam - Vital Signs Last Vital Signs Temp Pulse Resp BP Pulse Ox 97.8 F 92 H 26 H 146/72 100 11/26/18 22:00 11/26/18 22:00 11/26/18 22:00 11/26/18 22:00 11/26/18 22:00 - Physical Exam Comments: GENERAL: Awake, alert, and oriented to person/place/time, in no acute distress HEAD: No signs of trauma, normocephalic, atraumatic EYES: PERRLA, EOMI, sclera anicteric, conjunctiva clear ENT: Hearing grossly normal, nares patent, oropharynx clear without exudates. Moist mucosa LUNGS: No distress, speaks full sentences, b/l mild diffuse expiratory wheeze HEART: Regular rate and rhythm, normal S1 and S2, systolic murmur, peripheral pulses normal and equal bilaterally ABDOMEN: Soft, RUQ TTP w/o rebound or guarding, normoactive bowel sounds EXTREMITIES: Normal inspection, Normal range of motion, no edema. No clubbing or cyanosis NEUROLOGICAL: Cranial nerves II through XII grossly intact. Normal speech, no focal sensorimotor deficits SKIN: Warm, Dry RECTAL: Normal tone. External/non-thrombosed hemorrhoid. No internal hemorrhoids palpated, no fissures. No blood on glove. Soft stool in rectal vault. 11/26/18 22:37 ED Treatment Course - LABORATORY CBC & Chemistry Diagram: 11/28/18 05:30 11/28/18 05:30 - RADIOLOGY Radiology Studies Ordered: Category Date Time Status CHEST X-RAY PORTABLE* [RAD] Stat Radiology 11/26/18 22:36 Ordered Medical Decision Making - Medical Decision Making The pt is a 63M who presents for evaluation of generalized weakness and SOB ED Course labs sent RUQ US ECG CXR 11/26/18 23:19 RUQ US w/o cholelithiasis/cholecysitis Acute symptomatic anemia -FOBT sent -T/S sent -Consent for transfusion obtained -Plan to transfuse 2u pRBC Dispo: Admit for symptomatic anemia 11/27/18 00:57 *DC/Admit/Observation/Transfer Diagnosis at time of Disposition: Wheezing, Symptomatic anemia Chest pain Qualifiers: Chest pain type: unspecified Qualified Code(s): R07.9 - Chest pain, unspecified - Discharge Dispostion Condition at time of disposition: Good Decision to Admit order: Yes - Referrals - Patient Instructions - Post Discharge Activity
[2018-11-26] MEDS ORDERED: methylPREDNISolone NA SUCC 125 MG/2 ML VIAL IVPB ONE (22:52)
[2018-11-26 23:25] LABS: BASO % 0.7 % (0-2.0); EOS % 1.1 % (0-4.5); HEMATOCRIT 19.8 % (35.4-49); LYMPH % 12.8 % (8-40); MCHC 28.8 g/dl (32.0-35.9); MEAN CELL VOLUME 68.2 fl (80-96); MEAN PLT VOLUME 8.9 fl (7.5-11.1); MONO % 10.7 % (3.8-10.2); NEUT % 74.7 % (42.8-82.8); PLATELET COUNT 131 K/MM3 (134-434); RBC 2.91 M/mm3 (4.00-5.60); RDW 19.6 % (11.9-15.9); WHITE BLOOD COUNT 4.8 K/mm3 (4.0-10.0)
[2018-11-26 23:28] LABS: MCH 19.6 pg (25.7-33.7)
[2018-11-26 23:29] LABS: HEMOGLOBIN 5.7 GM/dL (11.7-16.9)
[2018-11-26] MEDS ORDERED: ALBUTEROL SO4 2.5/IPRATROPIUM 0.5 INH SOL 3 ML VIAL.NEB. NEB ONE (23:30)
[2018-11-26] MEDS ORDERED: methylPREDNISolone NA SUCC 125 MG/2 ML VIAL ONE (23:30)
[2018-11-26] MEDS: ALBUTEROL SO4 2.5/IPRATROPIUM 0.5 INH SOL 3 ML VIAL.NEB. NEB SCH (23:36)
[2018-11-27 00:06] LABS: ALBUMIN 3.4 g/dl (3.4-5.0); ALK PHOS 75 U/L (45-117); ANION GAP 6 MMOL/L (8-16); BILIRUBIN,TOTAL 0.8 mg/dL (0.2-1); BLOOD UREA NITROGEN 22 mg/dL (7-18); CALCIUM 8.8 mg/dL (8.5-10.1); CHLORIDE 109 mmol/L (98-107); CO2 25 mmol/L (21-32); CREATININE 1.3 mg/dL (0.55-1.3); GLUCOSE,RANDOM 122 mg/dL (74-106); N-TERMINAL BNP 3095.1 pg/ml (5-125); POTASSIUM 4.2 mmol/L (3.5-5.1); SGOT/AST 63 U/L (15-37); SGPT/ALT 35 U/L (13-61); SODIUM 140 mmol/L (136-145); TOT PROT 7.7 g/dl (6.4-8.2)
[2018-11-27] MEDS: ALBUTEROL SO4 2.5/IPRATROPIUM 0.5 INH SOL 3 ML VIAL.NEB. NEB SCH ×5 (01:00→20:05)
--- NOTE | 2018-11-27 01:38 | PDOC ---
Documentation entered by Kush Salazar SCRIBE, acting as scribe for Deann Mosquera MD. Deann Mosquera MD: This documentation has been prepared by the Martin clement Renju, SCRIBE, under my direction and personally reviewed by me in its entirety. I confirm that the documentation accurately reflects all work, treatment, procedures, and medical decision making performed by me. Attending Attestation - Resident Resident Name: Tereso Jackson - HPI HPI: 11/26/18 23:02 The patient is a 63 year old male with a past medical history of COPD, CHF, asthma, pacemaker, prior NSTEMI, HTN, and HLD who presents to the emergency department for evaluation of chest pain and shortness of breath. Patient reports a several week history of chest pain and shortness of breath, but notes it is worse today. He describes the chest pain as a nonradiating substernal pressure. He describes his shortness of breath as worsening and exacerbated with exertion, and notes he used his daily inhaler which as of lately, provides minimal relief. The patient also endorses right upper quadrant abdominal pain which began today. Patient admits previous workup for cirrhosis and was told to follow up with GI, but has been unable to due to work schedule. Denies recent trauma, swelling in extremities, fevers, chills, nausea, vomiting , and dysuria. PCP: Dr. Almanza - Physicial Exam PE: 11/26/18 23:35 wnwd 63 y/o male in no acute distress head ncat neck supple oropharynx no exudates Heart RRR. No gallops, murmurs, or rubs. lungs clear to auscultation bilaterally Abd (+)RUQ tenderness. ext no e/c/c, MAEx4 skin warm and dry,no rashes neuro A&Ox3,no gross focal neuro deficits - Medical Decision Making 11/26/18 22:57 copd,PPM,chf,nstemi,+tobacco use PCP Dr Almanza acute on chronic dysnpea,chest pain for several weekd but much worse today. Also RUQ abd pain,worst after eating -uses daily rescue inhaler w minimal relief -no fever,chills,no vomiting,no edema,afebrile, no jaundice 11/27/18 01:12 pt very dyspnic found to be very anemic with hbg=5.7, negative hemoccult pt needs admission w GI consult,possible hem/onc ,will do serially trops/will transfuse and admit to telemetry OBS 11/27/18 01:16
--- NOTE | 2018-11-27 02:12 | HP ---
CHIEF COMPLAINT: SOB, RUQ pain PCP: Archie HISTORY OF PRESENT ILLNESS: 63M poor historian, long time smoker, c/o vague RUQ pain for the past couple days, fatigue, and shortness of breath. Decreased exercise tolerance. Cannot these events to any recent events. Pt denied nay overt bleeding but did mention that he has had black stools occasionally. He has never had a colonoscopy. ER course was notable for: (1) ekg (2) duoneb (3) methylprednisone Recent Travel:no PAST MEDICAL HISTORY:COPD/asthma, CHF s/p AICD, CAD, HTN, DLP, tobacco use - long time smoker - since age 9 PAST SURGICAL HISTORY: AICD placement Social History: Smoking: yes Alcohol:no Drugs: no Family History: no Allergies No Known Allergies Allergy (Verified 11/26/18 22:03) HOME MEDICATIONS: Home Medications Medication Instructions Recorded Albuterol Sulfate Inhaler - 1 - 2 inh PO QID PRN 11/07/17 [Ventolin Hfa Inhaler -] Aspirin 81 mg PO DAILY 11/07/17 Carvedilol [Coreg -] 12.5 mg PO BID 11/07/17 Doxylamine Succinate [Unisom Sleep 25 mg PO HS PRN 11/07/17 Aid] Fluticasone/Salmeterol [Advair Hfa 1 inh PO BID 11/07/17 115-21 Mcg Inhaler] Fluticasone/Umeclidin/Vilanter 1 each IH ASDIR 11/07/17 [Trelegy Ellipta 100-62.5-25] Furosemide [Lasix -] 20 mg PO DAILY #60 tablet 11/07/17 Ipratropium [place] [Atrovent Hfa] 12.9 gm IH BID 11/07/17 Metoprolol Succinate [Toprol Xl -] 25 mg PO DAILY 11/07/17 Ubidecarenone [Co Q-10] 75 mg PO DAILY 11/07/17 REVIEW OF SYSTEMS CONSTITUTIONAL: Absent: fever, chills, diaphoresis, loss of appetite, weight change present- generalized weakness, malaise HEENT: Absent: rhinorrhea, nasal congestion, throat pain, throat swelling, difficulty swallowing, mouth swelling, ear pain, eye pain, visual changes CARDIOVASCULAR: Absent: , syncope, palpitations, irregular heart rate, lightheadedness, peripheral edema present-chest pain RESPIRATORY: Absent: cough, orthopnea, wheezing, stridor, hemoptysis present-shortness of breath, dyspnea with exertion, GASTROINTESTINAL: Absent: abdominal distension, nausea, vomiting, diarrhea, constipation, melena, hematochezia present- abdominal pain, GENITOURINARY: Absent: dysuria, frequency, urgency, hesitancy, hematuria, flank pain, genital pain MUSCULOSKELETAL: Absent: myalgia, arthralgia, joint swelling, back pain, neck pain SKIN: Absent: rash, itching, pallor HEMATOLOGIC/IMMUNOLOGIC: Absent: easy bleeding, easy bruising, lymphadenopathy, frequent infections ENDOCRINE: Absent: unexplained weight gain, unexplained weight loss, heat intolerance, cold intolerance NEUROLOGIC: Absent: headache, focal weakness or paresthesias, dizziness, unsteady gait, seizure, mental status changes, bladder or bowel incontinence PSYCHIATRIC: Absent: anxiety, depression, suicidal or homicidal ideation, hallucinations. PHYSICAL EXAMINATION Vital Signs - 24 hr 11/26/18 22:00 Temperature 97.8 F Pulse Rate 92 H Respiratory 26 H Rate Blood Pressure 146/72 O2 Sat by Pulse 100 Oximetry (%) GENERAL: Awake, alert, and fully oriented, appears chronically ill HEAD: Normal with no signs of trauma. EYES: Pupils equal, round and reactive to light, extraocular movements intact, scleral pallor+, conjunctiva clear. No lid lag. EARS, NOSE, THROAT: Ears normal, nares patent, oropharynx clear without exudates. Moist mucous membranes. NECK: Normal range of motion, supple without lymphadenopathy, JVD, or masses. LUNGS: Breath sounds equal, clear to auscultation bilaterally. No wheezes, and no crackles. No accessory muscle use. HEART: Regular rate and rhythm, normal S1 and S2 +systolic murmur ABDOMEN: Soft, nontender, not distended, normoactive bowel sounds, no guarding, no rebound, no masses. MUSCULOSKELETAL: Normal range of motion at all joints. No bony deformities or tenderness. No CVA tenderness. UPPER EXTREMITIES: 2+ pulses, warm, well-perfused. No cyanosis. No clubbing. No peripheral edema. LOWER EXTREMITIES: 2+ pulses, warm, well-perfused. No calf tenderness. No peripheral edema. NEUROLOGICAL: Cranial nerves II-XII intact. Normal speech. Normal gait. PSYCHIATRIC: Cooperative. Good eye contact. Appropriate mood and affect. SKIN: Warm, dry, normal turgor, pallor + Laboratory Results - last 24 hr 11/26/18 11/26/18 11/27/18 23:15 23:15 00:35 WBC 4.8 RBC 2.91 L Hgb 5.7 L* Hct 19.8 L D MCV 68.2 L MCH 19.6 L D MCHC 28.8 L RDW 19.6 H Plt Count 131 L MPV 8.9 Absolute Neuts (auto) 3.6 Neutrophils % 74.7 Lymphocytes % 12.8 D Monocytes % 10.7 H Eosinophils % 1.1 Basophils % 0.7 Nucleated RBC % 0 Sodium 140 Potassium 4.2 Chloride 109 H Carbon Dioxide 25 Anion Gap 6 L BUN 22 H Creatinine 1.3 Creat Clearance w eGFR 56.12 Random Glucose 122 H Calcium 8.8 Total Bilirubin 0.8 AST 63 H ALT 35 Alkaline Phosphatase 75 Troponin I 0.04 B-Natriuretic Peptide 3095.1 H Total Protein 7.7 Albumin 3.4 Stool Occult Blood Blood Type A POSITIVE Antibody Screen Negative Crossmatch 11/27/18 11/27/18 00:35 00:50 WBC RBC Hgb Hct MCV MCH MCHC RDW Plt Count MPV Absolute Neuts (auto) Neutrophils % Lymphocytes % Monocytes % Eosinophils % Basophils % Nucleated RBC % Sodium Potassium Chloride Carbon Dioxide Anion Gap BUN Creatinine Creat Clearance w eGFR Random Glucose Calcium Total Bilirubin AST ALT Alkaline Phosphatase Troponin I B-Natriuretic Peptide Total Protein Albumin Stool Occult Blood Negative Blood Type A POSITIVE Antibody Screen Negative Crossmatch See Detail EKG reviewed - poor r wave progression, possible old septa infarct ASSESSMENT/PLAN: #Severe symptomatic microcytic anemia- shortness of breath. Uncertain etiology but may be from occult GI bleed despite negative FOBT. Never had colonoscopy and reports black stools -patient agreed to blood transfusion -transfuse 2 units RBC -goal of hgb should be >8 given Hx of underlying CAD -anemia w/u- ferritin, iron studies -avoid ASA, nsaids, or heparin -monitor closely for signs of bleed -abdominal U/S to r/o occult intraabdominal bleed -GI evaluation for colonoscopy #Chest pain/SOB - ACS should be ruled out given underlying risk factors -tele-observation -trend troponins -echo -cxr -NGL SL PRN -cardiology consult- also for AICD interrogation #COPD/asthma- clear lungs, do not suspect exacerbation. -c/w home dose symbicort and tiotropium -smoking cessation #CHF - elevated BNP but no other CHF stigmata -cxr -echo -c/w home dose carvedilol and lasix -consider to add ACEi or ARB #Hep C? -hep C ab sent -hep B panel sent #DVT ppx- SCDs Visit type - Emergency Visit Emergency Visit: Yes ED Registration Date: 11/27/18 Care time: The patient presented to the Emergency Department on the above date and was hospitalized for further evaluation of their emergent condition. - New Patient This patient is new to me today: Yes Date on this admission: 11/27/18 - Critical Care Critical Care patient: No
[2018-11-27] MEDS ORDERED: SODIUM CHLORIDE 1,000 ML IV SCH (02:15)
[2018-11-27] MEDS ORDERED: ALBUTEROL SO4 2.5/IPRATROPIUM 0.5 INH SOL 3 ML VIAL.NEB. NEB ONE ×2 (02:28→19:56)
[2018-11-27] MEDS ORDERED: ALBUTEROL SO4 0.083% IH SOL 2.5 MG/3 ML VIAL.NEB. NEB PRN (03:44)
[2018-11-27 04:19] LABS: ANISOCYTOSIS 3+; MACROCYTOSIS 1+; PLATELET ESTIMATE DECREASED
[2018-11-27] MEDS: CARVEDILOL 12.5 MG TABLET (FP) PO SCH ×2 (09:32→21:57)
[2018-11-27] MEDS: FUROSEMIDE 20 MG TABLET (FP) PO SCH (09:32)
[2018-11-27] MEDS: TIOTROPIUM BROMIDE 2.5 MCG (SPIRIVA) RESPIMAT INHALER IH SCH (10:00)
[2018-11-27] MEDS: BUDESONIDE/FORMETEROL FUMARATE 80/4.5 mcg INHALER IH SCH ×2 (10:01→21:50)
--- NOTE | 2018-11-27 10:11 | CON.GI ---
Consult Consult Specialty:: Gastroenterology Referred by:: ED Reason for Consultation:: Patient noted to have severe microcytic anemia. - History of Present Illness Chief Complaint: Patient presented to ED on 11/26 for shortness of breath and mild abdominal pain made worse by earing over the last 2 months or so. No nausea. No vomiting. No black or tar-like stools. No change in baseline bowel havit of 1-2 brown BM's per day. No known prior GI history, though reports having hepatitis C. History of Present Illness: Patient presented to ED on 11/26 for shortness of breath and mild abdominal pain made worse by earing over the last 2 months or so. No nausea. No vomiting. No black or tar-like stools. No change in baseline bowel havit of 1-2 brown BM' s per day. No known prior GI history, though reports having hepatitis C. Additionally, takes daily ASA and nightly Motrin PM. Intermittent NSAID use in addition to this. No known family history of GI cancer, liver disease. No known previous GI or hematologic evaluation, and no colonoscopy or EGD. Reports history of PPM versus AICD, prior PA, tobacco use, HTN, treated TB ( versus PPD). - History Source History Provided By: Patient Limitations to Obtaining History: Language Barrier - Past Medical History Cardio/Vascular: Yes: HTN, Hyperlipdemia, [place] Hepatobiliary: Yes: Hepatitis C Infectious Disease: Yes: Tuberculosis Musculoskeletal: Yes: Osteoarthritis - Past Surgical History Past Surgical History: Yes: Permanent Pacemaker, Stent - Alcohol/Substance Use Hx Alcohol Use: Yes History of Substance Use: reports: None - Smoking History Smoking history: Current every day smoker Have you smoked in the past 12 months: Yes Aproximately how many cigarettes per day: 5 Home Medications - Allergies Allergies/Adverse Reactions: Allergies Allergy/AdvReac Type Severity Reaction Status Date / Time No Known Allergies Allergy Verified 11/26/18 22:03 - Home Medications Home Medications: Ambulatory Orders Albuterol Sulfate Inhaler - [Ventolin Hfa Inhaler -] 1 - 2 inh PO QID PRN Aspirin 81 mg PO DAILY 11/07/17 Carvedilol [Coreg -] 12.5 mg PO BID 11/07/17 Fluticasone/Salmeterol [Advair Hfa 115-21 Mcg Inhaler] 1 inh PO BID 11/07/17 Furosemide [Lasix -] 20 mg PO DAILY #60 tablet 11/07/17 Ipratropium [place] [Atrovent Hfa] 12.9 gm IH BID 11/07/17 Atorvastatin Ca [Lipitor] 20 mg PO DAILY 11/27/18 Sacubitril/Valsartan [Entresto 49 mg-51 mg Tablet] 1 each PO DAILY 11/27/18 Family Disease History - Family Disease History Family Disease History: Heart Disease: Grandparent Other Family History: No known stomach or colon cancer Review of Systems - Review of Systems Constitutional: denies: Chills, Fever, Night Sweats Eyes: denies: Eye Pain, Other HENT: denies: Difficult Swallowing, Epistaxis Neck: denies: Swollen Glands, Tenderness Cardiovascular: reports: Shortness of Breath. denies: Chest Pain, Edema Respiratory: reports: SOB. denies: Cough Gastrointestinal: reports: Abdominal Pain. denies: Bloating, Constipation, Diarrhea, Dysphagia, Indigestion, Melena, Nausea, Rectal Bleeding, Vomiting, Vomiting Blood Genitourinary: denies: Burning, Hematuria Musculoskeletal: denies: Joint Pain, Joint Swelling Integumentary: denies: Rash, Wound Neurological: denies: Change in Speech, Confusion Endocrine: denies: Unexplained Weight Gain, Unexplained Weight Loss Hematology/Lymphatic: denies: Easily Bruised, Excessive Bleeding Psychiatric: denies: Anxiety, Depression Physical Exam-GI Vital Signs: Vital Signs Temperature 97.8 F 11/27/18 09:34 Pulse Rate 86 11/27/18 09:34 Respiratory Rate 17 11/27/18 09:34 Blood Pressure 156/93 11/27/18 09:34 O2 Sat by Pulse Oximetry (%) 97 11/27/18 09:34 Constitutional: Yes: No Distress, Calm, Pallor Eyes: Yes: Conjunctiva Clear, EOM Intact, PERRL. No: Sclera Icterus Neck: Yes: Supple, Trachea Midline. No: Tenderness Cardiovascular: Yes: Regular Rate and Rhythm, S1, S2 Respiratory: Yes: Regular, CTA Bilaterally Gastrointestinal Inspection: Yes: WNL. No: Ascites, Distention ...Auscultate: Yes: Normoactive Bowel Sounds ...Palpate: Yes: Tenderness (right more than left, mild, diffues and without reboud or guarding). No: Hepatomegaly, Mass ...Percussion: No: Dullness, Tympanitic ...Rectal Exam: Yes: Deferred, Other (Patient refused. Says was done earlier, though not in chart.) Musculoskeletal: No: Joint Stiffness, Joint Swelling Labs: CBC, BMP 11/26/18 23:15 11/26/18 23:15 Problem List - Problems (1) Microcytic anemia Assessment/Plan: Laboratory evaluation with ferritin, iron level, TIBC. Endoscopic evaluation with EGD and colonoscopy following bowel prep for Miralax bowel prep this afternoon/evening Clear liquids remainder of day NPO after midnight. IV iron once iron studies checked. Code(s): D50.9 - IRON DEFICIENCY ANEMIA, UNSPECIFIED (2) Abdominal pain, right lateral Assessment/Plan: Right upper quadrant sonogram to assess GB Code(s): R10.9 - UNSPECIFIED ABDOMINAL PAIN (3) Elevated ALT measurement Assessment/Plan: Hep C Ab pending--patient reports history of Hep C, though uncertain if accurate. If negative, consider additional work up in addition to RUQ sono suggested Code(s): R74.0 - NONSPEC ELEV OF LEVELS OF TRANSAMNS & LACTIC ACID DEHYDRGNSE Assessment/Plan Laboratory, endoscopic evaluation for problems as listed above
[2018-11-27 10:13] LABS: INR 1.19 (0.83-1.09); PROTHROMBIN TIME (PATIENT) 14.1 SEC (9.7-13.0)
[2018-11-27 10:16] LABS: ACTIVATED PTT 25.8 SECONDS (25.2-36.5)
--- NOTE | 2018-11-27 10:28 | EKG ---
Test Reason : Blood Pressure : / mmHG Vent. Rate : 090 BPM Atrial Rate : 090 BPM P-R Int : 162 ms QRS Dur : 100 ms QT Int : 384 ms P-R-T Axes : 057 017 101 degrees QTc Int : 469 ms NORMAL SINUS RHYTHM ANTEROLATERAL INFARCT (CITED ON OR BEFORE 07-NOV-2017) ABNORMAL ECG WHEN COMPARED WITH ECG OF 07-NOV-2017 21:45, NONSPECIFIC T WAVE ABNORMALITY, IMPROVED IN LATERAL LEADS Confirmed by ADA THRASHER MD ([id number]) on 11/27/2018 10:28:22 AM Referred By: Confirmed By:ADA THRASHER MD
[2018-11-27 10:51] LABS: BASO % 0.1 % (0-2.0); HEMATOCRIT 24.3 % (35.4-49); HEMOGLOBIN 7.3 GM/dL (11.7-16.9); LYMPH % 5.9 % (8-40); MCH 21.9 pg (25.7-33.7); MCHC 30.3 g/dl (32.0-35.9); MEAN CELL VOLUME 72.3 fl (80-96); MEAN PLT VOLUME 8.6 fl (7.5-11.1); MONO % 1.3 % (3.8-10.2); NEUT % 92.7 % (42.8-82.8); PLATELET COUNT 114 K/MM3 (134-434); RBC 3.36 M/mm3 (4.00-5.60); RDW 23.2 % (11.9-15.9); WHITE BLOOD COUNT 2.5 K/mm3 (4.0-10.0)
--- NOTE | 2018-11-27 11:25 | PN ---
Progress Note, Physician - Current Medication List Current Medications: Active Medications Albuterol Sulfate (Ventolin 0.083% Nebulizer Soln -) 1 amp NEB Q6H PRN PRN Reason: SHORT OF BREATH/WHEEZING Budesonide/Formoterol Fumarate (Symbicort 80/4.5mcg -) 2 puff IH BID [facility] Last Admin: 11/27/18 10:01 Dose: 2 inh Carvedilol (Coreg -) 12.5 mg PO BID [facility] Last Admin: 11/27/18 09:32 Dose: 12.5 mg Furosemide (Lasix -) 20 mg PO DAILY [facility] Last Admin: 11/27/18 09:32 Dose: 20 mg Tiotropium [place] (Spiriva Respimat) 2 puff IH DAILY [facility] Last Admin: 11/27/18 10:00 Dose: 2 puff - Objective Vital Signs: Vital Signs Temperature 97.8 F 11/27/18 09:34 Pulse Rate 86 11/27/18 09:34 Respiratory Rate 17 11/27/18 09:34 Blood Pressure 156/93 11/27/18 09:34 O2 Sat by Pulse Oximetry (%) 97 11/27/18 09:34 Labs: CBC, BMP 11/27/18 10:25 INR, PTT INR 1.19 (0.83-1.09) H 11/27/18 09:25 Problem List - Problems (1) Microcytic anemia Assessment/Plan: may be from occult GI bleed despite negative FOBT. Never had colonoscopy and reports black stools -patient agreed to blood transfusion -transfuse 2 units PRBC -goal of hgb should be >8 given Hx of underlying CAD -anemia w/u- ferritin, iron studies -avoid ASA, nsaids, or heparin -monitor closely for signs of bleed -GI evaluation for Endoscopy -PPi Code(s): D50.9 - IRON DEFICIENCY ANEMIA, UNSPECIFIED (2) Abdominal pain, right lateral Assessment/Plan: gi on board us Code(s): R10.9 - UNSPECIFIED ABDOMINAL PAIN (3) Chest pain Assessment/Plan: -tele-observation -trend troponins -echo -cardiology consult- also for AICD interrogation Code(s): R07.9 - CHEST PAIN, UNSPECIFIED Qualifiers: Chest pain type: unspecified Qualified Code(s): R07.9 - Chest pain, unspecified (4) CHF (congestive heart failure) Assessment/Plan: -cxr -echo -c/w home dose carvedilol and lasix -consider to add ACEi or ARB Code(s): I50.9 - HEART FAILURE, UNSPECIFIED (5) COPD exacerbation Assessment/Plan: Received one dose steroids Nebs pulm consul Code(s): J44.1 - CHRONIC OBSTRUCTIVE PULMONARY DISEASE W (ACUTE) EXACERBATION
[2018-11-27 11:38] LABS: ANION GAP 7 MMOL/L (8-16); BLOOD UREA NITROGEN 19 mg/dL (7-18); CALCIUM 8.5 mg/dL (8.5-10.1); CHLORIDE 108 mmol/L (98-107); CO2 24 mmol/L (21-32); CREATININE 1.1 mg/dL (0.55-1.3); GLUCOSE,RANDOM 177 mg/dL (74-106); POTASSIUM 3.8 mmol/L (3.5-5.1); SODIUM 139 mmol/L (136-145)
[2018-11-27 11:54] LABS: ANISOCYTOSIS 3+; MACROCYTOSIS 0; PLATELET ESTIMATE DECREASED; TEAR DROP CELLS 1+
--- NOTE | 2018-11-27 13:27 | ECHO ---
Name: ALYSHA REZA Exam:Adult Echocardiogram Study Date: 11/27/2018 10:31 AM Age: 63 yrs Reason For Study: SOB Height: 66 in Weight: 180 lb BSA: 1.9 m2 MMode/2D Measurements & Calculations IVSd: 0.94 cm Ao root diam: 2.8 cm LVIDd: 6.2 cm LA dimension: 5.3 cm LVIDs: 5.5 cm LVPWd: 1.1 cm EDV(Teich): 191.5 ml LVOT diam: 2.4 cm ESV(Teich): 147.0 ml LAV (MOD-bp): 146.0 ml Doppler Measurements & Calculations MV E max siva: 100.2 cm/sec MVA(VTI): 2.0 cm2 MV A max siva: 51.3 cm/sec MV V2 max: 157.9 cm/sec MV E/A: 2.0 MV max P.0 mmHg MV dec time: 0.14 sec MV V2 mean: 98.7 cm/sec MV mean P.7 mmHg MV V2 VTI: 33.0 cm Ao V2 max: 166.8 cm/sec LV V1 max P.0 mmHg Ao max P.1 mmHg LV V1 mean P.5 mmHg Ao V2 mean: 129.2 cm/sec LV V1 max: 86.8 cm/sec Ao mean P.3 mmHg LV V1 mean: 55.4 cm/sec Ao V2 VTI: 33.2 cm LV V1 VTI: 15.0 cm SHARON(I,D): 2.0 cm2 SHARON(V,D): 2.3 cm2 MR max siva: 654.4 cm/sec SV(LVOT): 65.2 ml MR max P.4 mmHg TR max siva: 278.8 cm/sec PA V2 max: 95.0 cm/sec TR max P.2 mmHg PA max P.6 mmHg PI end-d siva: 103.2 cm/sec Med Peak E' Siva: 6.4 cm/sec Med E/e': 15.7 Lat Peak E' Siva: 7.3 cm/sec Lat E/e': 13.7 Procedure A two-dimensional transthoracic echocardiogram with color flow and Doppler was performed. Left Ventricle The left ventricle is moderately dilated. Left ventricular systolic function is severely reduced. The transmitral spectral Doppler flow pattern is suggestive of restrictive physiology. There is severe gl obal hypokinesis of the left ventricle. Right Ventricle The right ventricle is not well visualized. There is a pacemaker lead in the right ventricle. Atria The left atrium is severely dilated. The right atrium is severely dilated. The atrial septum is aneur ysmal. Mitral Valve There is mild mitral valve thickening. There is no mitral valve stenosis. There is severe mitral regurgitation. The mitral regurgitant jet is eccentrically directed. Tricuspid Valve There is mild tricuspid valve thickening. There is no tricuspid stenosis. There is severe tricuspid regurgitation. Right ventricular systolic pressure is elevated at 40-50mmHg. Aortic Valve The aortic valve is trileaflet. There is mild to moderate aortic valve thickening. There is mild aort ic sclerosis.;. No hemodynamically significant valvular aortic stenosis. No aortic regurgitation is pres ent. Pulmonic Valve The pulmonic valve is not well visualized. There is no pulmonic valvular stenosis. Mild pulmonic valv ular regurgitation. Great Vessels The aortic root is normal size. Pericardium/Pleura There is no pericardial effusion. Interpretation Summary The left ventricle is moderately dilated. Left ventricular systolic function is severely reduced. There is severe global hypokinesis of the left ventricle. The mitral regurgitant jet is eccentrically directed. The left atrium is severely dilated. The right atrium is severely dilated. There is severe tricuspid regurgitation. Right ventricular systolic pressure is elevated at 40-50mmHg. The aortic valve is trileaflet. There is mild to moderate aortic valve thickening. There is mild aortic sclerosis.; No hemodynamically significant valvular aortic stenosis. The right ventricle is not well visualized. There is a pacemaker lead in the right ventricle. The atrial septum is aneurysmal. There is severe mitral regurgitation. The transmitral spectral Doppler flow pattern is suggestive of restrictive physiology. MD John Norman 11/27/2018 01:26 PM
[2018-11-27] MEDS ORDERED: PEG 3350/NA SULF BICARB CL/KCL 4000 ML SOLN.RECON PO ONE (14:00)
[2018-11-27] MEDS ORDERED: BISACODYL 5 MG TABLET.DR (FP) PO ONE (14:00)
--- NOTE | 2018-11-27 14:28 | CON.PULM ---
Consult Consult Specialty:: PULMONARY Referred by:: Dr Claudio Reason for Consultation:: COPD - History of Present Illness Chief Complaint: shortness of breath History of Present Illness: 63yo male with h/o HTN, hyperlipidemia, COPD, LV systolic dysfunction, CAD s/p stent placement, smoker who was admitted with worsening shortness of breath " for a long time." Reports increasingly reduced exercise tolerance. No fevers, chills or sweats. Does report occasional chest pain with exertion. Reports some dark stools, does take ASA and NSAIDs. He is a long time smoker, as much as 1 PPD, now down to 4-5 cigarettes/day. He does take inhalers but does not know the names but describes Advair and Ventolin. - History Source History Provided By: Patient, Medical Record Limitations to Obtaining History: Poor Historian - Past Medical History Cardio/Vascular: Yes: HTN, Hyperlipdemia, [place] Hepatobiliary: Yes: Hepatitis C Infectious Disease: Yes: Tuberculosis Musculoskeletal: Yes: Osteoarthritis - Past Surgical History Past Surgical History: Yes: Permanent Pacemaker, Stent - Alcohol/Substance Use Hx Alcohol Use: Yes History of Substance Use: reports: None - Smoking History Smoking history: Current every day smoker Have you smoked in the past 12 months: Yes Aproximately how many cigarettes per day: 5 Home Medications - Allergies Allergies/Adverse Reactions: Allergies Allergy/AdvReac Type Severity Reaction Status Date / Time No Known Allergies Allergy Verified 11/26/18 22:03 - Home Medications Home Medications: Ambulatory Orders Albuterol Sulfate Inhaler - [Ventolin Hfa Inhaler -] 1 - 2 inh PO QID PRN Aspirin 81 mg PO DAILY 11/07/17 Carvedilol [Coreg -] 12.5 mg PO BID 11/07/17 Fluticasone/Salmeterol [Advair Hfa 115-21 Mcg Inhaler] 1 inh PO BID 11/07/17 Furosemide [Lasix -] 20 mg PO DAILY #60 tablet 11/07/17 Ipratropium [place] [Atrovent Hfa] 12.9 gm IH BID 11/07/17 Atorvastatin Ca [Lipitor] 20 mg PO DAILY 11/27/18 Sacubitril/Valsartan [Entresto 49 mg-51 mg Tablet] 1 each PO DAILY 11/27/18 Family Disease History - Family Disease History Family Disease History: Heart Disease: Grandparent Other Family History: No known stomach or colon cancer Review of Systems - Review of Systems Constitutional: reports: Weakness. denies: Chills, Fever Eyes: denies: Recent Change in Vision HENT: denies: Nasal Congestion, Throat Pain Neck: denies: Stiffness, Tenderness Cardiovascular: reports: Chest Pain, Shortness of Breath. denies: Edema, Palpitations Respiratory: reports: Cough. denies: Hemoptysis, Wheezing Gastrointestinal: denies: Abdominal Pain, Nausea, Vomiting Genitourinary: denies: Dysuria, Hematuria Neurological: denies: Dizziness, Headache Endocrine: denies: Unexplained Weight Loss Physical Exam Vital Sings: Vital Signs Temperature 97.8 F 11/27/18 09:34 Pulse Rate 69 11/27/18 12:39 Respiratory Rate 18 11/27/18 12:39 Blood Pressure 125/79 11/27/18 12:39 O2 Sat by Pulse Oximetry (%) 98 11/27/18 12:39 Constitutional: Yes: Calm Eyes: Yes: Conjunctiva Clear, EOM Intact HENT: Yes: Atraumatic, Normocephalic Neck: Yes: Supple, Trachea Midline Cardiovascular: Yes: Regular Rate and Rhythm Respiratory: Yes: Diminished (distant breath sounds). No: Wheezes ...Clubbing: No Gastrointestinal: Yes: Normal Bowel Sounds, Soft. No: Tenderness Edema: No Neurological: Yes: Alert, Oriented Labs: CBC, BMP 11/27/18 10:25 11/27/18 10:25 Imaging - Results Chest X-ray: Report Reviewed, Image Reviewed (increased central markings) Problem List - Problems (1) Symptomatic anemia Code(s): D64.9 - ANEMIA, UNSPECIFIED (2) COPD (chronic obstructive pulmonary disease) Code(s): J44.9 - CHRONIC OBSTRUCTIVE PULMONARY DISEASE, UNSPECIFIED (3) Congestive heart failure with left ventricular systolic dysfunction Code(s): I50.20 - UNSPECIFIED SYSTOLIC (CONGESTIVE) HEART FAILURE Assessment/Plan Symptomatic Anemia r/o GI Bleed COPD Severe LV Systolic Dysfunction Severe Mitral Regurgitation CAD HTN Hyperlipidemia Smoker - monitor H/H - transfuse as needed - protonix - inhaled bronchodilators - will give perioperative steroids for pending endoscopy - O2 to keep spo2 >90% - continue cardiac meds but would hold ASA - DVT prophylaxis - smoking cessation - outpt PFTs Thank you for this consult Vivek Cottrell MD
--- NOTE | 2018-11-27 16:18 | CON.CARD ---
Consult Consult Specialty:: Cardiology Reason for Consultation:: CP. SOB - History of Present Illness Chief Complaint: CP. SOB History of Present Illness: This is a 63 year old male with a PMH of COPD/asthma, CHF s/p AICD, NSTEMI, HTN , hyperlipidemia, and cigarette use. He presents now with chest pain which is non radiating and note associated with exertion. He also has SOB and worsening MÁRQUEZ. HCT 19.8 Troponin 0.04, 0.02 [id number] EKG Sinus bradycardia at 55 BPM with normal intervals, normal axis and NSSTTW changes. Echocardiogram 11/27/18: Severe global hypokinesis of the LV Severe LAE/MAYTE Severe MR/TR - Past Medical History Cardio/Vascular: Yes: HTN, Hyperlipdemia, [place] Hepatobiliary: Yes: Hepatitis C Infectious Disease: Yes: Tuberculosis Musculoskeletal: Yes: Osteoarthritis - Past Surgical History Past Surgical History: Yes: Permanent Pacemaker, Stent - Alcohol/Substance Use Hx Alcohol Use: Yes History of Substance Use: reports: None - Smoking History Smoking history: Current every day smoker Have you smoked in the past 12 months: Yes Aproximately how many cigarettes per day: 5 Home Medications - Allergies Allergies/Adverse Reactions: Allergies Allergy/AdvReac Type Severity Reaction Status Date / Time No Known Allergies Allergy Verified 11/26/18 22:03 - Home Medications Home Medications: Ambulatory Orders Albuterol Sulfate Inhaler - [Ventolin Hfa Inhaler -] 1 - 2 inh PO QID PRN Aspirin 81 mg PO DAILY 11/07/17 Carvedilol [Coreg -] 12.5 mg PO BID 11/07/17 Fluticasone/Salmeterol [Advair Hfa 115-21 Mcg Inhaler] 1 inh PO BID 11/07/17 Furosemide [Lasix -] 20 mg PO DAILY #60 tablet 11/07/17 Ipratropium [place] [Atrovent Hfa] 12.9 gm IH BID 11/07/17 Atorvastatin Ca [Lipitor] 20 mg PO DAILY 11/27/18 Sacubitril/Valsartan [Entresto 49 mg-51 mg Tablet] 1 each PO DAILY 11/27/18 Family Disease History - Family Disease History Family Disease History: Heart Disease: Grandparent Other Family History: No known stomach or colon cancer Vital Signs: Vital Signs Temperature 97.8 F 11/27/18 09:34 Pulse Rate 69 11/27/18 12:39 Respiratory Rate 18 11/27/18 12:39 Blood Pressure 125/79 11/27/18 12:39 O2 Sat by Pulse Oximetry (%) 98 11/27/18 12:39 Constitutional: Yes: Well Nourished, No Distress Eyes: Yes: WNL Neck: Yes: WNL Respiratory: Yes: CTA Bilaterally Gastrointestinal: Yes: Soft Cardiovascular: Yes: Regular Rate and Rhythm (NL S1S2, No MRHG.) Extremities: Yes: WNL Edema: No Neurological: Yes: Alert, Oriented - Other Data Labs, Other Data: CBC, BMP 11/27/18 10:25 11/27/18 10:25 INR, PTT INR 1.19 (0.83-1.09) H 11/27/18 09:25 Troponin, BNP 11/26/18 11/27/18 23:15 10:25 Troponin I 0.04 0.02 B-Natriuretic Peptide 3095.1 H Troponin, BNP 11/26/18 11/27/18 23:15 10:25 Troponin I 0.04 0.02 B-Natriuretic Peptide 3095.1 H Assessment/Plan 63 year old male with a PMH of COPD/asthma, CHF s/p AICD, NSTEMI, HTN, hyperlipidemia, and cigarette use. He presents now with chest pain which is non radiating and note associated with exertion. He also has SOB and worsening MÁRQUEZ. HCT 19.8 Troponin 0.04, 0.02 [id number] EKG Sinus rhythm at 90 BPM with normal intervals, normal axis, PRWP across the anterior precordial leads, and NSSTTW changes Echocardiogram 11/27/18: Severe global hypokinesis of the LV Severe LAE/MAYTE Severe MR/TR CP/SOB Likely to improve with PRBC Tx Anemia work up in progress Given elevated BNP, LV dysfunction, and receiving PRBC's, l would start IVSS Lasix 40 mg BID Follow I's/O's/Wt's/Lytes Continue COREG 12.5 mg PO BID No report of ICD shocks so don't see a need for ICD interrogation acutely
[2018-11-27] MEDS: PANTOPRAZOLE SODIUM 80 MG in SODIUM CHLORIDE 100 ML IVPB SCH ×2 (19:40→21:57)
[2018-11-27] MEDS ORDERED: BISACODYL 5 MG TABLET.DR (FP) ONE (19:49)
[2018-11-27] MEDS ORDERED: methylPREDNISolone NA SUCC 40 MG/1 ML VIAL ONE (19:56)
[2018-11-27] MEDS: methylPREDNISolone NA SUCC 40 MG/1 ML VIAL IVPUSH SCH (20:00)
[2018-11-27 22:25] VITALS: BMI 28.4
[2018-11-28 06:35] LABS: BASO % 0.1 % (0-2.0); HEMATOCRIT 25.9 % (35.4-49); HEMOGLOBIN 8.1 GM/dL (11.7-16.9); LYMPH % 3.6 % (8-40); MCH 22.5 pg (25.7-33.7); MCHC 31.2 g/dl (32.0-35.9); MEAN CELL VOLUME 72.2 fl (80-96); MONO % 3.7 % (3.8-10.2); NEUT % 92.6 % (42.8-82.8); PLATELET COUNT 113 K/MM3 (134-434); RBC 3.59 M/mm3 (4.00-5.60); RDW 22.8 % (11.9-15.9); WHITE BLOOD COUNT 6.9 K/mm3 (4.0-10.0)
[2018-11-28 07:12] LABS: ALBUMIN 3.4 g/dl (3.4-5.0); ALK PHOS 71 U/L (45-117); ANION GAP 6 MMOL/L (8-16); BILIRUBIN,TOTAL 1.6 mg/dL (0.2-1); BLOOD UREA NITROGEN 21 mg/dL (7-18); CALCIUM 8.6 mg/dL (8.5-10.1); CHLORIDE 108 mmol/L (98-107); CO2 24 mmol/L (21-32); CREATININE 1.1 mg/dL (0.55-1.3); GLUCOSE,RANDOM 139 mg/dL (74-106); POTASSIUM 3.7 mmol/L (3.5-5.1); SGOT/AST 28 U/L (15-37); SGPT/ALT 29 U/L (13-61); SODIUM 138 mmol/L (136-145); TOT PROT 7.9 g/dl (6.4-8.2)
[2018-11-28] MEDS: ALBUTEROL SO4 2.5/IPRATROPIUM 0.5 INH SOL 3 ML VIAL.NEB. NEB SCH ×2 (08:11→12:12)
[2018-11-28] MEDS: PANTOPRAZOLE SODIUM 80 MG in SODIUM CHLORIDE 100 ML IVPB SCH (09:00)
[2018-11-28] MEDS: TIOTROPIUM BROMIDE 2.5 MCG (SPIRIVA) RESPIMAT INHALER IH SCH (09:11)
[2018-11-28] MEDS: CARVEDILOL 12.5 MG TABLET (FP) PO SCH ×2 (09:11→21:09)
[2018-11-28] MEDS: FUROSEMIDE 20 MG TABLET (FP) PO SCH (09:11)
[2018-11-28] MEDS: methylPREDNISolone NA SUCC 40 MG/1 ML VIAL IVPUSH SCH (09:11)
[2018-11-28] MEDS: BUDESONIDE/FORMETEROL FUMARATE 80/4.5 mcg INHALER IH SCH ×2 (09:12→21:08)
[2018-11-28 11:01] LABS: ANISOCYTOSIS 2+; MACROCYTOSIS 1+; OVALOCYTE 1+; PLATELET ESTIMATE DECREASED
--- NOTE | 2018-11-28 12:51 | PN ---
Progress Note (short form) - Note Progress Note: EGD/Colonoscopy complete. Reports left in procedural section of physical chart and to be scanned into [employer]
[2018-11-28 13:17] LABS: HBSAG SCREEN Negative (Negative); HEP A AB, IGM Negative (Negative); HEP B CORE AB, TOT Negative (Negative)
--- NOTE | 2018-11-28 13:43 | PN ---
Progress Note (short form) - Note Progress Note: PULMONARY s/p EGD/colonoscopy showing portal gastropathy, small esophageal varices, colon polyp and hemorrhoids. States breathing better, denies cough or wheezing. Vital Signs Period Temp Pulse Resp BP Sys/Uriostegui Pulse Ox Last 24 Hr 97.7 F-98.4 F 73-86 16-25 120-163/72-98 94-100 Gen: NAD at rest Heart: RRR Lung: decreased breath sounds at the bases, no wheezes Abd: soft, nontender Ext: no edema CBC, BMP 11/28/18 05:30 11/28/18 05:30 Active Medications Albuterol Sulfate (Ventolin 0.083% Nebulizer Soln -) 1 amp NEB Q6H PRN PRN Reason: SHORT OF BREATH/WHEEZING Albuterol/Ipratropium (Duoneb -) 1 amp NEB RQID [facility] Last Admin: 11/28/18 12:12 Dose: Not Given Atorvastatin [place] (Lipitor -) 20 mg PO HS [facility] Budesonide/Formoterol Fumarate (Symbicort 80/4.5mcg -) 2 puff IH BID [facility] Last Admin: 11/28/18 09:12 Dose: 2 inh Carvedilol (Coreg -) 12.5 mg PO BID [facility] Last Admin: 11/28/18 09:11 Dose: 12.5 mg Furosemide (Lasix -) 20 mg PO DAILY [facility] Last Admin: 11/28/18 09:11 Dose: 20 mg Methylprednisolone Sodium Succinate (Solu-Medrol -) 40 mg IVPUSH DAILY [facility] Stop: 11/29/18 10:01 Last Admin: 11/28/18 09:11 Dose: 40 mg Pantoprazole Sodium (Protonix -) 40 mg PO DAILY [facility] Tiotropium [place] (Spiriva Respimat) 2 puff IH DAILY [facility] Last Admin: 11/28/18 09:11 Dose: 2 puff A/P Symptomatic Anemia r/o GI Bleed COPD Severe LV Systolic Dysfunction Severe Mitral Regurgitation CAD HTN Hyperlipidemia Smoker - monitor H/H - protonix - inhaled bronchodilators - will d/c steroids - O2 to keep spo2 >90% - DVT prophylaxis - smoking cessation - outpt PFTs Problem List - Problems (1) Symptomatic anemia Code(s): D64.9 - ANEMIA, UNSPECIFIED (2) COPD (chronic obstructive pulmonary disease) Code(s): J44.9 - CHRONIC OBSTRUCTIVE PULMONARY DISEASE, UNSPECIFIED (3) Congestive heart failure with left ventricular systolic dysfunction Code(s): I50.20 - UNSPECIFIED SYSTOLIC (CONGESTIVE) HEART FAILURE
[2018-11-28] MEDS: PANTOPRAZOLE 40 MG TABLET (FP) PO SCH (14:30)
[2018-11-28] MEDS ORDERED: FUROSEMIDE 100 MG/10 ML INJECTABLE VIAL IVPB ONE (14:39)
--- NOTE | 2018-11-28 14:40 | PN ---
Progress Note, Physician Chief Complaint: patient came back from egd/colonscopy small esophageal varies, colon polyp,hemorrhoids - Current Medication List Current Medications: Active Medications Albuterol Sulfate (Ventolin 0.083% Nebulizer Soln -) 1 amp NEB Q6H PRN PRN Reason: SHORT OF BREATH/WHEEZING Atorvastatin Calcium (Lipitor -) 20 mg PO HS [facility] Budesonide/Formoterol Fumarate (Symbicort 80/4.5mcg -) 2 puff IH BID [facility] Last Admin: 11/28/18 09:12 Dose: 2 inh Carvedilol (Coreg -) 12.5 mg PO BID [facility] Last Admin: 11/28/18 09:11 Dose: 12.5 mg Furosemide (Lasix -) 20 mg PO DAILY [facility] Last Admin: 11/28/18 09:11 Dose: 20 mg Pantoprazole Sodium (Protonix -) 40 mg PO DAILY [facility] Tiotropium [place] (Spiriva Respimat) 2 puff IH DAILY [facility] Last Admin: 11/28/18 09:11 Dose: 2 puff - Objective Vital Signs: Vital Signs Temperature 97.8 F 11/28/18 13:23 Pulse Rate 74 11/28/18 13:23 Respiratory Rate 20 11/28/18 13:23 Blood Pressure 135/91 11/28/18 13:22 O2 Sat by Pulse Oximetry (%) 94 L 11/28/18 13:23 Constitutional: Yes: Calm Cardiovascular: Yes: Regular Rate and Rhythm, S1, S2 Respiratory: Yes: CTA Bilaterally Gastrointestinal: Yes: Normal Bowel Sounds, Soft Edema: No Neurological: Yes: Alert, Oriented Labs: CBC, BMP 11/28/18 05:30 11/28/18 05:30 INR, PTT INR 1.19 (0.83-1.09) H 11/27/18 09:25 Problem List - Problems (1) Microcytic anemia Assessment/Plan: egd/colonscopy done iv protonix cbc noted will monitor s/p prbc iv lasix Code(s): D50.9 - IRON DEFICIENCY ANEMIA, UNSPECIFIED (2) COPD (chronic obstructive pulmonary disease) Assessment/Plan: bronchodilators Code(s): J44.9 - CHRONIC OBSTRUCTIVE PULMONARY DISEASE, UNSPECIFIED
--- NOTE | 2018-11-28 16:46 | PN ---
Progress Note, Physician Chief Complaint: Resting comfortably History of Present Illness: This is a 63 year old male with a PMH of COPD/asthma, CHF s/p AICD, NSTEMI, HTN , hyperlipidemia, and cigarette use. He presents now with chest pain which is non radiating and note associated with exertion. He also has SOB and worsening MÁRQUEZ. HCT 19.8 Troponin 0.04, 0.02 [id number] EKG Sinus bradycardia at 55 BPM with normal intervals, normal axis and NSSTTW changes. Echocardiogram 11/27/18: Severe global hypokinesis of the LV Severe LAE/MAYTE Severe MR/TR 11/28/18 The patient came back from egd/colonscopy found to have small esophageal varies, colon polyp,hemorrhoids - Current Medication List Current Medications: Active Medications Albuterol Sulfate (Ventolin 0.083% Nebulizer Soln -) 1 amp NEB Q6H PRN PRN Reason: SHORT OF BREATH/WHEEZING Atorvastatin Calcium (Lipitor -) 20 mg PO [facility] Budesonide/Formoterol Fumarate (Symbicort 80/4.5mcg -) 2 puff IH BID [facility] Last Admin: 11/28/18 09:12 Dose: 2 inh Carvedilol (Coreg -) 12.5 mg PO BID [facility] Last Admin: 11/28/18 09:11 Dose: 12.5 mg Pantoprazole Sodium (Protonix -) 40 mg PO DAILY [facility] Last Admin: 11/28/18 14:30 Dose: Not Given Tiotropium [place] (Spiriva Respimat) 2 puff IH DAILY [facility] Last Admin: 11/28/18 09:11 Dose: 2 puff - Objective Vital Signs: Vital Signs Temperature 98 F 11/28/18 16:22 Pulse Rate 84 11/28/18 16:22 Respiratory Rate 20 11/28/18 16:22 Blood Pressure 152/93 11/28/18 16:22 O2 Sat by Pulse Oximetry (%) 94 L 11/28/18 13:23 Constitutional: Yes: No Distress Eyes: Yes: WNL HENT: Yes: WNL Neck: Yes: WNL Cardiovascular: Yes: Regular Rate and Rhythm (S1S2, No MRHG) Respiratory: Yes: CTA Bilaterally Gastrointestinal: Yes: Soft Extremities: Yes: WNL Edema: No Labs: CBC, BMP 11/28/18 05:30 11/28/18 05:30 INR, PTT INR 1.19 (0.83-1.09) H 11/27/18 09:25 Assessment/Plan 63 year old male with a PMH of COPD/asthma, CHF s/p AICD, NSTEMI, HTN, hyperlipidemia, and cigarette use. He presents now with chest pain which is non radiating and note associated with exertion. He also has SOB and worsening MÁRQUEZ. HCT 19.8 Troponin 0.04, 0.02 [id number] EKG Sinus rhythm at 90 BPM with normal intervals, normal axis, PRWP across the anterior precordial leads, and NSSTTW changes Echocardiogram 11/27/18: Severe global hypokinesis of the LV Severe LAE/MAYTE Severe MR/TR CP/SOB Improved with PRBC Tx Continue COREG 12.5 mg PO BID No report of ICD shocks so don't see a need for ICD interrogation acutely 11/28/18 The patient came back from egd/colonscopy found to have small esophageal varies, colon polyp,hemorrhoids HCT 25.9% Needs close outpatient Cardiology follow up
[2018-11-28] MEDS ORDERED: ATORVASTATIN CA 20 MG TABLET (FP) PO SCH (22:00)
[2018-11-29 05:26] VITALS: TEMP 98.1
[2018-11-29 06:56] LABS: BASO % 0.1 % (0-2.0); EOS % 0.1 % (0-4.5); HEMATOCRIT 25.8 % (35.4-49); LYMPH % 10.6 % (8-40); MCH 22.3 pg (25.7-33.7); MCHC 30.9 g/dl (32.0-35.9); MEAN CELL VOLUME 72.1 fl (80-96); MEAN PLT VOLUME 8.8 fl (7.5-11.1); NEUT % 80.2 % (42.8-82.8); PLATELET COUNT 126 K/MM3 (134-434); RBC 3.57 M/mm3 (4.00-5.60); RDW 23.4 % (11.9-15.9)
[2018-11-29 08:26] VITALS: BP 139/83; PULSE 79
[2018-11-29] MEDS: PANTOPRAZOLE 40 MG TABLET (FP) PO SCH (09:07)
[2018-11-29] MEDS: CARVEDILOL 12.5 MG TABLET (FP) PO SCH (09:07)
[2018-11-29] MEDS: TIOTROPIUM BROMIDE 2.5 MCG (SPIRIVA) RESPIMAT INHALER IH SCH (09:09)
[2018-11-29] MEDS: BUDESONIDE/FORMETEROL FUMARATE 80/4.5 mcg INHALER IH SCH (09:09)
--- NOTE | 2018-11-29 12:05 | PATH ---
Surgical Pathology Report Patient Name: ALYSHA REZA [facility]. Rec. #: [id number] /Age/Gender: 1955 (Age: 63) / M Account: [id number] Location: 4 W TELEMETRY U Taken: 11/28/2018 Received: 11/28/2018 Reported: 11/29/2018 Physicians: Richard Omalley D.O. Specimen(s) Received A: ULCER IN ANGULARIS B: ANTRUM AND BODY C: HEPATIC FLEXURE Clinical History GI bleed Postoperative diagnosis: Portal gastropathy, gastric ulcer, small esophageal varices, gastritis, colon polyp, hemorrhoids Final Diagnosis A. STOMACH, ANGULARIS, BIOPSY: MODERATE TO SEVERE CHRONIC ACTIVE GASTRITIS. NO CARCINOMA IS IDENTIFIED. IMMUNOSTAIN FOR H. PYLORI IS POSITIVE (FEW ORGANISMS). B. STOMACH, ANTRUM AND BODY, BIOPSY: MODERATE CHRONIC ACTIVE GASTRITIS. IMMUNOSTAIN FOR H. PYLORI IS POSITIVE (FEW TO MODERATE NUMBER OF ORGANISMS). C. DESIGNATED HEPATIC FLEXURE POLYP, BIOPSY: GASTRIC MUCOSA WITH CHRONIC ACTIVE GASTRITIS. NO COLONIC TISSUE IDENTIFIED. Comment: This case was discussed with Dr. Omalley on November 29, 2018. Electronically Signed Vivek Jarvis M.D. Gross Description A. Received in formalin, labeled "biopsy ulcer angularis" are 6 ennis, irregular portions of soft tissue ranging from 0.1-0.4 cm. in greatest dimension. The specimens are submitted in toto in one cassette. B. Received in formalin, labeled "biopsy antrum and body" are 5 ennis, irregular portions of soft tissue ranging from 0.1-0.4 cm. in greatest dimension. The specimens are submitted in toto in one cassette. C. Received in formalin, labeled "hepatic flexure polyp" is a ennis, irregular portion of soft tissue measuring 0.3 cm. in greatest dimension. The specimen is submitted in toto in one cassette. /11/28/2018 saudi11/28/2018
--- NOTE | 2018-11-29 12:35 | DS ---
Physical Examination Vital Signs: Vital Signs Temperature 98.1 F 11/29/18 08:24 Pulse Rate 79 11/29/18 08:24 Respiratory Rate 18 11/29/18 08:26 Blood Pressure 139/83 11/29/18 08:24 O2 Sat by Pulse Oximetry (%) 97 11/29/18 08:26 Constitutional: Yes: Calm Cardiovascular: Yes: Regular Rate and Rhythm, S1, S2 Respiratory: Yes: CTA Bilaterally Gastrointestinal: Yes: Normal Bowel Sounds, Soft Edema: No Neurological: Yes: Alert, Oriented Labs: CBC, BMP 11/29/18 05:30 11/28/18 05:30 Discharge Summary Reason For Visit: SECONDARY ANEMIA, CHEST PAIN Current Active Problems Abdominal pain, right lateral (Acute) COPD (chronic obstructive pulmonary disease) (Acute) Chest pain (Acute) Congestive heart failure with left ventricular systolic dysfunction (Acute) Elevated ALT measurement (Acute) Microcytic anemia (Acute) Symptomatic anemia (Acute) Wheezing (Acute) Hospital Course: HIEF COMPLAINT: SOB, RUQ pain PCP: Archie HISTORY OF PRESENT ILLNESS: 63M poor historian, long time smoker, c/o vague RUQ pain for the past couple days, fatigue, and shortness of breath. Decreased exercise tolerance. Cannot these events to any recent events. Pt denied nay overt bleeding but did mention that he has had black stools occasionally. He has never had a colonoscopy. in ER he was found to have h/h 5.7/19.8 got 2 units of prbc s/p egd and colosncopy colonic polyps hemorroids eosphageal varices gastric ulcer gastritis and surgical pathology - h pylori is positive stay off apsirin for one month no NSAIDS and start triple tx for h pylori Condition: Good - Instructions Diet, Activity, Other Instructions: see Dr Vivek Almanza on sunday 9:50 am stop aspirin for one month then restart 3 times a week check cbc in 2 weeks Disposition: HOME - Home Medications Comprehensive Discharge Medication List: Ambulatory Orders Albuterol Sulfate Inhaler - [Ventolin Hfa Inhaler -] 1 - 2 inh PO QID PRN Aspirin 81 mg PO DAILY 11/07/17 Carvedilol [Coreg -] 12.5 mg PO BID 11/07/17 Fluticasone/Salmeterol [Advair Hfa 115-21 Mcg Inhaler] 1 inh PO BID 11/07/17 Furosemide [Lasix -] 20 mg PO DAILY #60 tablet 11/07/17 Ipratropium [place] [Atrovent Hfa] 12.9 gm IH BID 11/07/17 Atorvastatin Ca [Lipitor] 20 mg PO DAILY 11/27/18 Sacubitril/Valsartan [Entresto 49 mg-51 mg Tablet] 1 each PO DAILY 11/27/18
== END 2018-11-29 14:08 | disposition home or self-care (01) | DRG 812 ==
LOC: JER 21:57 → JERBED 11-27 01:12 → OBSVTOIN 11-27 11:59 → J4W 11-27 21:26
PROVIDERS: ADMIT Family Medicine; ATTEND Family Medicine
PROC: 30233N1 Transfusion of Nonautologous Red Blood Cells into Peripheral Vein, Percutaneous Approach (ICD-10-PCS; principal; 2018-11-27)
PROC: 3E0F7GC Introduction of Other Therapeutic Substance into Respiratory Tract, Via Natural or Artificial Opening (ICD-10-PCS; 2018-11-27)
PROC: 0DBL8ZX Excision of Transverse Colon, Via Natural or Artificial Opening Endoscopic, Diagnostic (ICD-10-PCS; 2018-11-28)
PROC: 0W3P8ZZ Control Bleeding in Gastrointestinal Tract, Via Natural or Artificial Opening Endoscopic (ICD-10-PCS; 2018-11-28)
PROC: 0DD68ZX Extraction of Stomach, Via Natural or Artificial Opening Endoscopic, Diagnostic (ICD-10-PCS; 2018-11-28)
DX: D50.9 Iron deficiency anemia, unspecified (principal); J44.1 Chronic obstructive pulmonary disease with (acute) exacerbation; I50.22 Chronic systolic (congestive) heart failure; I85.00 Esophageal varices without bleeding; K76.6 Portal hypertension; I34.0 Nonrheumatic mitral (valve) insufficiency; K31.89 Other diseases of stomach and duodenum; D12.3 Benign neoplasm of transverse colon; K64.8 Other hemorrhoids; K29.70 Gastritis, unspecified, without bleeding; K25.9 Gastric ulcer, unspecified as acute or chronic, without hemorrhage or perforation; I11.0 Hypertensive heart disease with heart failure; I25.2 Old myocardial infarction; E78.5 Hyperlipidemia, unspecified; F17.210 Nicotine dependence, cigarettes, uncomplicated; Z95.810 Presence of automatic (implantable) cardiac defibrillator; B19.20 Unspecified viral hepatitis C without hepatic coma; Z95.5 Presence of coronary angioplasty implant and graft; Z86.11 Personal history of tuberculosis; M19.90 Unspecified osteoarthritis, unspecified site
CPT/HCPCS: 36415; 36430; 71045-TC-FY; 76705-TC; 80048; 80053; 82272; 82550; 82607; 82728; 83540; 83880; 84484; 85025; 85610; 85730; 86704; 86706; 86708; 86803; 86850; 86900; 86901; 86922; 87340; 88305-TC; 93005; 93010; 93306-TC; 94640; 99285-25; G0378; P9038; P9058

== ENCOUNTER 2019-10-08 17:13 | Inpatient (IN) | payer BC, OTHER ==
[2019-10-08 17:31] VITALS: BMI 27.7
--- NOTE | 2019-10-08 17:38 | PDOC ---
Rapid Medical Evaluation Time Seen by Provider: 10/08/19 17:28 Medical Evaluation: Allergies Allergy/AdvReac Type Severity Reaction Status Date / Time No Known Allergies Allergy Verified 11/26/18 22:03 10/08/19 17:29 Pt c/o: penile pain and redness, on abx x 1 week and completed it , Pt on brief exam:+ edema to glans , circumcized, noted open wound to tip of penis pt ordered for: wound cx Pt to proceed to the ED 10/10/19 12:07 Discharge Disposition - Diagnosis Abscess of shaft of penis, MARCEL (acute kidney injury) Open wound of penis Qualifiers: Encounter type: initial encounter Qualified Code(s): S31.20XA - Unspecified open wound of penis, initial encounter - Discharge Dispostion Condition at time of disposition: Fair - Referrals - Patient Instructions - Post Discharge Activity
--- NOTE | 2019-10-08 18:22 | PDOC ---
History of Present Illness - General Chief Complaint: Wound Stated Complaint: PAIN Time Seen by Provider: 10/08/19 17:28 History Source: Patient Exam Limitations: No Limitations Past History - Travel Traveled outside of the country in the last 30 days: No Close contact w/someone who was outside of country & ill: No - Past Medical History Allergies/Adverse Reactions: Allergies Allergy/AdvReac Type Severity Reaction Status Date / Time No Known Allergies Allergy Verified 10/08/19 17:31 Home Medications: Ambulatory Orders Albuterol Sulfate Inhaler - [Ventolin HFA Inhaler -] 1 - 2 inh PO QID PRN Carvedilol [Coreg -] 12.5 mg PO BID 11/07/17 Fluticasone/Salmeterol [Advair Hfa 115-21 Mcg Inhaler] 1 inh PO BID 11/07/17 Furosemide [Lasix -] 20 mg PO DAILY #60 tablet 11/07/17 Ipratropium [place] [Atrovent Hfa] 12.9 gm IH BID 11/07/17 Atorvastatin Ca [Lipitor] 20 mg PO DAILY 11/27/18 Amoxicillin - [Amoxicillin 500mg Capsule -] 1,000 mg PO BID #30 capsule MDD 2 Atorvastatin Ca [Lipitor] 20 mg PO HS #30 tablet 11/29/18 Clarithromycin [Biaxin -] 500 mg PO BID #14 tablet 11/29/18 Pantoprazole Sodium [Protonix] 40 mg PO BID #30 tablet. 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) - Immunization History Immunization Up to Date: Yes - Psycho Social/Smoking Cessation Hx Smoking History: Never smoked Have you smoked in the past 12 months: No Number of Cigarettes Smoked Daily: 5 Information on smoking cessation initiated: No 'Breaking Loose' booklet given: 07/06/17 Hx Alcohol Use: No Drug/Substance Use Hx: No Substance Use Type: None Hx Substance Use Treatment: No Review of Systems - Review of Systems Able to Perform ROS?: Yes Comments:: 10/08/19 20:04 CONSTITUTIONAL: Absent: fever, chills, diaphoresis, generalized weakness, malaise, loss of appetite GASTROINTESTINAL: Absent: abdominal pain, abdominal distension, nausea, vomiting, diarrhea, constipation, melena, hematochezia GENITOURINARY: Present: Dysuria, genital pain, genital swelling absent: dysuria, frequency, urgency, hesitancy, hematuria, flank pain, genital pain MUSCULOSKELETAL: Absent: myalgia, arthralgia, joint swelling SKIN: Present: Swelling to penis absent: rash, itching, pallor HEMATOLOGIC/IMMUNOLOGIC: Absent: easy bleeding, easy bruising, lymphadenopathy, frequent infections NEUROLOGIC: Absent: headache, focal weakness or paresthesias, dizziness, unsteady gait, seizure, mental status changes, bladder or bowel incontinence PSYCHIATRIC: Absent: anxiety, depression, suicidal or homicidal ideation, hallucinations. Is the patient limited [place] proficient: No *Physical Exam - Vital Signs Last Vital Signs Temp Pulse Resp BP Pulse Ox 97.7 F 95 H 18 133/80 99 10/08/19 17:26 10/08/19 17:26 10/08/19 17:26 10/08/19 17:10/08/19 17:26 - Physical Exam 10/08/19 20:09 GENERAL: Well developed, well nourished. Awake and alert. No acute distress. HEENT: Normocephalic, atraumatic. PERRLA, EOMI. No conjunctival pallor. Sclera are non- icteric. Moist mucous membranes. NECK: Supple. Full ROM. CARDIOVASCULAR: Regular rate and rhythm. No murmurs, rubs, or gallops. Distal pulses are 2+ and symmetric. PULMONARY: No evidence of respiratory distress. Lungs clear to auscultation bilaterally. No wheezing, rales or rhonchi. ABDOMINAL: Soft. Non-tender. Non-distended. No rebound or guarding. No organomegaly. Normoactive bowel sounds. : Swelling to the posterior aspect proximal to the glans of the penis with fluctuance. Anterior aspect of the penis proximal to the glans is a fissure approximately 1cm in length. No active drainage. MUSCULOSKELETAL Normal range of motion at all joints. No bony deformities or tenderness. No CVA tenderness. EXTREMITIES: No cyanosis. No clubbing. No edema. No calf tenderness. SKIN: Warm and dry. Normal capillary refill. No rashes. No jaundice. NEUROLOGICAL: Alert, awake, appropriate. Cranial nerves 2-12 intact. No deficits to light touch and temperature in face, upper extremities and lower extremities. No motor deficits in the in face, upper extremities and lower extremities. Normoreflexic in the upper and lower extremities. Normal speech. Toes are down- going bilaterally. Gait is normal without ataxia. PSYCHIATRIC: Cooperative. Good eye contact. Appropriate mood and affect. ED Treatment Course - LABORATORY CBC & Chemistry Diagram: 10/08/19 19:00 10/08/19 19:00 Medical Decision Making - Medical Decision Making 10/08/19 22:17 The patient is a 64 y/o M with PMH of HTN, presents to the ED with one week of penile swelling. He states that the swelling has gotten worse despite completing a course of bactrim. He states that he also has associate disuria and a cut on the top of his penis. He states he has not been sexually active in the past 6 months. Denies fevers, chills, n/v/d, lightheadedness, hematuria, frequency and urgency. A/P: Penile abscess On exam there is a fluctuance to the posterior aspect of the penis just proximal to the glans with a fissure to the anterior aspect of the shaft of the penis again proximal to the glans. Labs show a Cr of 1.6 -->1.1 in 04/24; Probable MARCEL CT of pelvis shows an abscess to the posterior aspect of the glans measuring about 1.3cm Paged Dr. Rodgers. Will see patient in the morning for evaluation of the abscess Will make NPO after midnight incase pt goes to OR for clean out Clindamycin and Zosyn given in the ED Will admit to hospitalists. 10/08/19 22:44 Sign out given hospitalist [employer]. Will admit under Dr. Claudio's service. Discharge - Discharge Information Problems reviewed: Yes Clinical Impression/Diagnosis: Abscess of shaft of penis, MARCEL (acute kidney injury) Open wound of penis Qualifiers: Encounter type: initial encounter Qualified Code(s): S31.20XA - Unspecified open wound of penis, initial encounter Condition: Fair - Admission Yes - Follow up/Referral Referrals: Vivek Almanza [Primary Care Provider] - - Patient Discharge Instructions - Post Discharge Activity
[2019-10-08] MEDS ORDERED: CLINDAMYCIN 600MG PREMIX IVPB 600 MG/50 ML BAG IVPB ONE ×2 (18:42→19:55)
--- NOTE | 2019-10-08 18:59 | PDOC ---
*Physical Exam - Vital Signs Last Vital Signs Temp Pulse Resp BP Pulse Ox 97.7 F 95 H 18 133/80 99 10/08/19 17:26 10/08/19 17:26 10/08/19 17:26 10/08/19 17:26 10/08/19 17:26 - Physical Exam 10/08/19 18:59 Gen: aaox3, nad gu: glans with fissure just prox-no drainage, soft tissue swelling to tip of shaft just proximal to the glans, fluctuance, no ttp, no warmth, no drainage, no scrotal involvement, no crepitus ED Treatment Course - LABORATORY CBC & Chemistry Diagram: 10/08/19 19:00 10/08/19 19:00 Medical Decision Making - Medical Decision Making 10/08/19 18:59 a/p: 64yo male with penile soft tissue swelling- on bactrim for a week already -will send labs, cultures -will obtain ct pelvis with contrast -will need urology eval in the hospital -will monitor and reassess 10/08/19 22:16 pt with abscess on ct PA to discuss with urology, call placed to Dr. dominguez iv abx given pt will need admission 10/08/19 22:17 Discharge - Discharge Information Problems reviewed: Yes Clinical Impression/Diagnosis: Open wound of penis, Abscess of shaft of penis, MARCEL (acute kidney injury) Condition: Fair - Admission Yes - Follow up/Referral Referrals: Vivek Almanza [Primary Care Provider] - - Patient Discharge Instructions - Post Discharge Activity
[2019-10-08 19:36] LABS: BASO % 0.6 % (0-2.0); EOS % 1.3 % (0-4.5); HEMATOCRIT 43.3 % (35.4-49); HEMOGLOBIN 13.5 GM/dL (11.7-16.9); LYMPH % 16.5 % (8-40); MCH 25.8 pg (25.7-33.7); MCHC 31.2 g/dl (32.0-35.9); MEAN CELL VOLUME 82.6 fl (80-96); MEAN PLT VOLUME 8.3 fl (7.5-11.1); MONO % 11.1 % (3.8-10.2); NEUT % 70.5 % (42.8-82.8); PLATELET COUNT 269 K/MM3 (134-434); RBC 5.24 M/mm3 (4.00-5.60); RDW 19.1 % (11.9-15.9); WHITE BLOOD COUNT 8.7 K/mm3 (4.0-10.0)
[2019-10-08 19:37] LABS: URINE APPEARANCE CLEAR; URINE BILIRUBIN NEGATIVE (NEGATIVE); URINE COLOR YELLOW; URINE GLUCOSE (UA) NEGATIVE (NEGATIVE); URINE KETONE NEGATIVE (NEGATIVE); URINE LEUK ESTERASE NEGATIVE (NEGATIVE); URINE NITRITE NEGATIVE (NEGATIVE); URINE PROTEIN NEGATIVE (NEGATIVE)
[2019-10-08 20:21] LABS: ALBUMIN 3.5 g/dl (3.4-5.0); BILIRUBIN,TOTAL 0.4 mg/dL (0.2-1); BLOOD UREA NITROGEN 31.6 mg/dL (7-18); CALCIUM 9.7 mg/dL (8.5-10.1); CREATININE 1.6 mg/dL (0.55-1.3); POTASSIUM 4.5 mmol/L (3.5-5.1); TOT PROT 8.2 g/dl (6.4-8.2)
[2019-10-08] MEDS ORDERED: LACTATED RINGERS SOLUTION 1000 ML INFUS.BAG IV ONE (20:42)
[2019-10-08] MEDS ORDERED: PIPERACILLIN/TAZOB 3.375 GM 3.375 GM in DEXTROSE 5%-WATER - 50 ML IVPB ONE (22:33)
[2019-10-08] MEDS ORDERED: DOCUSATE SODIUM 100 MG CAPSULE (FP) PO PRN (23:05)
[2019-10-08] MEDS ORDERED: ACETAMINOPHEN 325 MG TABLET (FP) PO PRN (23:05)
[2019-10-08] MEDS ORDERED: SENNOSIDES 8.6MG TABLET (FP) PO PRN (23:05)
[2019-10-08] MEDS ORDERED: ALBUTEROL SO4 2.5/IPRATROPIUM 0.5 INH SOL 3 ML VIAL.NEB. NEB PRN (23:17)
--- NOTE | 2019-10-08 23:24 | HP ---
Admitting History and Physical - Primary Care Physician PCP: Vivek Almanza - Admission Chief Complaint: Penile swelling History of Present Illness: 64 year old M with h/o COPD/asthma, CHF s/p AICD, CAD s/p PCI, HTN, and HLD who presents to the ED with c/o swelling to penile glans. Pt reports symptoms began 1 week ago as mild "itching" followed by progressive swelling and skin opening to the dorsal aspect of glans penis. Pt denies fever/chills, discharge, dysuria, hematuria or recent sexual activity. He was evaluated by his PCP and prescribed bactrim without effect. In ED Vitals: BP 133/80, HR 95, T 97.7, RR 18, Wt 78kg Labs show a Cr of 1.6 -->1.1 in 04/24, pt given LR CT of pelvis shows an abscess to the posterior aspect of the glans measuring about 1.3cm Paged Dr. Pedro who will see patient in the AM Clindamycin and Zosyn given in the ED and decision made to admit for continued management History Source: Patient Limitations to Obtaining History: No Limitations - Past Medical History Cardiovascular: Yes: CHF, HTN, Hyperlipdemia, [place] Pulmonary: Yes: Asthma, COPD Gastrointestinal: Yes: Other (s/p egd and colosncopy colonic polyps hemorroids eosphageal varices gastric ulcer gastritis and surgical pathology - h pylori is positive) Hepatobiliary: Yes: Hepatitis C Heme/Onc: Yes: Anemia Infectious Disease: Yes: Tuberculosis Psych: Yes: Depression Musculoskeletal: Yes: Osteoarthritis - Past Surgical History Past Surgical History: Yes: Permanent Pacemaker, Stent - Smoking History Smoking history: Current every day smoker Have you smoked in the past 12 months: Yes Aproximately how many cigarettes per day: 5 (1/4PPD x 40yrs) - Alcohol/Substance Use Hx Alcohol Use: Yes (1-2 beers per day) History of Substance Use: reports: None - Social History Usual Living Arrangement: Yes: Other (Lives in shared apartment with friends) ADL: Independent 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 emigrated 40yrs ago. Has 5 children who lives in the [place]. emergency contact: Mariely Sukhjinder [phone] (friend) Home Medications - Allergies Allergies/Adverse Reactions: Allergies Allergy/AdvReac Type Severity Reaction Status Date / Time No Known Allergies Allergy Verified 10/08/19 17:31 - Home Medications Home Medications: Ambulatory Orders Albuterol Sulfate Inhaler - [Ventolin HFA Inhaler -] 1 - 2 inh PO QID PRN Carvedilol [Coreg -] 12.5 mg PO BID 11/07/17 Fluticasone/Salmeterol [Advair Hfa 115-21 Mcg Inhaler] 1 inh PO BID 11/07/17 Furosemide [Lasix -] 20 mg PO DAILY #60 tablet 11/07/17 Ipratropium [place] [Atrovent Hfa] 12.9 gm IH BID 11/07/17 Atorvastatin Ca [Lipitor] 20 mg PO DAILY 11/27/18 Atorvastatin Ca [Lipitor] 20 mg PO HS #30 tablet 11/29/18 Pantoprazole Sodium [Protonix] 40 mg PO BID #[address] tablet[address] GORDON 2 11/29/18 Family Medical History Other Family History: Mother (28) murdered. Father (?) killed during [place] uprising Review of Systems - Review of Systems Constitutional: reports: No Symptoms Eyes: reports: No Symptoms HENT: reports: No Symptoms Neck: reports: No Symptoms Cardiovascular: reports: No Symptoms Respiratory: reports: No Symptoms Gastrointestinal: reports: No Symptoms Genitourinary: reports: Other (penile swelling) Breasts: reports: No Symptoms Reported Musculoskeletal: reports: No Symptoms Integumentary: reports: No Symptoms (open circumferential wound to tip of penis) Neurological: reports: No Symptoms Endocrine: reports: No Symptoms Hematology/Lymphatic: reports: No Symptoms Psychiatric: reports: Depression Physical Examination Vital Signs: Vital Signs Temperature 97.7 F 10/08/19 17:26 Pulse Rate 95 H 10/08/19 17:26 Respiratory Rate 18 10/08/19 17:26 Blood Pressure 133/80 10/08/19 17:26 O2 Sat by Pulse Oximetry (%) 99 10/08/19 17:26 Constitutional: Yes: No Distress, Calm Eyes: Yes: Conjunctiva Clear, PERRL HENT: Yes: Atraumatic, Normocephalic, Other (poor dentition) Neck: Yes: Supple, Trachea Midline Cardiovascular: Yes: Regular Rate and Rhythm Respiratory: Yes: Regular, CTA Bilaterally Gastrointestinal: Yes: Soft, Hypoactive Bowel Sounds ...Rectal Exam: Yes: Deferred Renal/: Yes: Other (+ swelling to penile glans with circumferential skin opening to dorsal aspect of glans) Musculoskeletal: Yes: WNL Extremities: Yes: WNL Edema: No Peripheral Pulses WNL: Yes Peripheral Pulses: Left Radial: 2+, Right Radial: 2+ Integumentary: Yes: Tattoos Wound/Incision: Yes: Open to air Neurological: Yes: Alert, Oriented ...Motor Strength: WNL Psychiatric: Yes: Alert, Oriented Labs: CBC, BMP 10/08/19 19:00 10/08/19 19:00 Imaging - Results Cat Scan: Report Reviewed (CT Pelvis 10/08/19 Clinical information: evaluate for penile abscess versus mass Multiplanar imaging was performed. Intravenous contrast was not administered. At the level of the glans penis note is made of a semilunar-shaped fluid collection which could represent an abscess along the inferior half with a 1.3 cm thickness (transaxial images 93 - 101; sagittal images 57 - 71). No soft tissue air accumulation is seen. The deep fascial planes appear intact. No gross soft tissue mass lesion is identified on noncontrast imaging. Colonic diverticulosis. Mild prostate enlargement. Mild to moderate atherosclerotic vascular calcifications. Impression: As noted above Reported By: Varinder Santizo MD 10/08/19 [id number]) Problem List - Problems (1) CAD (coronary artery disease) Assessment/Plan: Cardiac diet cont statin and BB Code(s): I25.10 - ATHSCL HEART DISEASE OF [place] CORONARY ARTERY W/O ANG PCTRS (2) MARCEL (acute kidney injury) Assessment/Plan: hold lasix gentle fluid hydration trend serum Cr and electrolytes Code(s): N17.9 - ACUTE KIDNEY FAILURE, UNSPECIFIED (3) Open wound of penis Assessment/Plan: Zosyn ordered Q8hrs BID wound care topical bactroban F/u wound cx f/u RPR, GC/chalmydia trend WBC and temp trends APAP PRN pain Code(s): S31.20XA - UNSPECIFIED OPEN WOUND OF PENIS, INITIAL ENCOUNTER Qualifiers: Encounter type: initial encounter Qualified Code(s): S31.20XA - Unspecified open wound of penis, initial encounter (4) CHF (congestive heart failure) Assessment/Plan: trend intake/ output as lasix is on hold Code(s): I50.9 - HEART FAILURE, UNSPECIFIED (5) COPD (chronic obstructive pulmonary disease) Assessment/Plan: cont advair PRN duonebs Code(s): J44.9 - CHRONIC OBSTRUCTIVE PULMONARY DISEASE, UNSPECIFIED Assessment/Plan Code status: Full Bowel regimen: senna and colace DVT PPX: ambulates Medication list not verified in ED. [facility] -- should be called for medication reconciliation in the AM as pt does not recall the name of all his meds. Visit type - Emergency Visit Emergency Visit: Yes ED Registration Date: 10/08/19 Care time: The patient presented to the Emergency Department on the above date and was hospitalized for further evaluation of their emergent condition. - New Patient This patient is new to me today: Yes Date on this admission: 10/08/19 - Critical Care Critical Care patient: No
[2019-10-08] MEDS ORDERED: PIPERACILLIN/TAZOB 3.375 GM 3.375 GM/50 ML BAG IVPB ONE (23:36)
[2019-10-09] MEDS ORDERED: PNEUMOC 13-VAL CONJ-DIP CRM/PF 0.5 ML DISP.SYRIN IM ONE (01:12)
[2019-10-09 07:58] LABS: HEMATOCRIT 36.9 % (35.4-49); HEMOGLOBIN 11.7 GM/dL (11.7-16.9); MCH 25.9 pg (25.7-33.7); MCHC 31.7 g/dl (32.0-35.9); MEAN CELL VOLUME 81.6 fl (80-96); MEAN PLT VOLUME 8.3 fl (7.5-11.1); PLATELET COUNT 208 K/MM3 (134-434); RBC 4.52 M/mm3 (4.00-5.60); RDW 18.4 % (11.9-15.9); WHITE BLOOD COUNT 6.2 K/mm3 (4.0-10.0)
[2019-10-09 08:48] LABS: MAGNESIUM 2.1 mg/dL (1.8-2.4)
[2019-10-09] MEDS ORDERED: PIPERACILLIN/TAZOBACTAM 3.375 GM VIAL IVPB ONE ×2 (08:59→17:06)
[2019-10-09] MEDS ORDERED: DEXTROSE 5%-WATER - 50 ML IVPB ONE ×2 (08:59→17:07)
[2019-10-09] MEDS: CARVEDILOL 12.5 MG TABLET (FP) PO SCH ×2 (09:35→22:01)
[2019-10-09] MEDS ORDERED: PNEUMOCOCCAL 23 VACCINE 0.5 ML VIAL IM ONE (10:00)
[2019-10-09] MEDS ORDERED: PATIENT'S OWN MEDICATION (NON-FORMULARY) (Fluticasone/Salmeterol [Advair Hfa 115-21 Mcg In PO SCH (10:00)
[2019-10-09] MEDS ORDERED: PIPERACILLIN/TAZOB 3.375 GM 3.375 GM in DEXTROSE 5%-WATER - 50 ML IVPB SCH (10:00)
[2019-10-09] MEDS ORDERED: HEPARIN NA (PORCINE) 5,000 UNITS/ML 1ML VIAL SQ SCH (10:00)
--- NOTE | 2019-10-09 10:20 | PN ---
Progress Note, Physician Chief Complaint: Penile Swelling History of Present Illness: Previous notes and events reviewed awake and alert NAD complain of pain and swelling to penis denies hematuria or dysuria - Current Medication List Current Medications: Active Medications Acetaminophen (Tylenol -) 650 mg PO Q6H PRN PRN Reason: PAIN LEVEL 4 - 6 Albuterol/Ipratropium (Duoneb -) 1 amp NEB RQID PRN PRN Reason: ASTHMA Atorvastatin Calcium (Lipitor -) 20 mg PO HS [facility] Carvedilol (Coreg -) 12.5 mg PO BID [facility] Last Admin: 10/09/19 09:35 Dose: 12.5 mg Documented by: Docusate Sodium (Colace -) 100 mg PO Q12H PRN PRN Reason: CONSTIPATION Piperacillin Sod/Tazobactam (Sod 3.375 gm/ Dextrose) 50 mls @ 100 mls/hr IVPB Q8H-IV [facility]; Protocol Stop: 10/09/19 18:29 Last Admin: 10/09/19 09:35 Dose: 100 mls/hr Documented by: Piperacillin Sod/Tazobactam (Sod 3.375 gm/ Dextrose) 50 mls @ 100 mls/hr IVPB Q8H-IV [facility] Mupirocin (Bactroban 2% Ointment -) 1 applic TP BID [facility] Non-Formulary Medication (Fluticasone/Salmeterol [Advair Hfa 115-21 Mcg Inhaler]) 1 inh PO BID [facility] Pneumococcal Polyvalent Vaccine (Pneumovax -) 0.5 ml IM .ONCE ONE Stop: 10/09/19 10:01 Senna (Senna -) 2 tab PO HS PRN PRN Reason: CONSTIPATION - Objective Vital Signs: Vital Signs Temperature 98.4 F 10/09/19 08:10 Pulse Rate 80 10/09/19 08:10 Respiratory Rate 18 10/09/19 08:10 Blood Pressure 117/70 10/09/19 08:10 O2 Sat by Pulse Oximetry (%) 97 10/09/19 00:53 Constitutional: Yes: No Distress, Calm Eyes: Yes: Conjunctiva Clear HENT: Yes: Atraumatic Cardiovascular: Yes: Regular Rate and Rhythm Respiratory: Yes: Regular, CTA Bilaterally Gastrointestinal: Yes: Normal Bowel Sounds, Soft Genitourinary: Yes: Other (penile swelling/abscess) Musculoskeletal: Yes: WNL Extremities: Yes: WNL Edema: No Neurological: Yes: Alert, Oriented Psychiatric: Yes: Alert, Oriented Labs: CBC, BMP 10/09/19 06:35 10/08/19 19:00 Problem List - Problems (1) MARCEL (acute kidney injury) Assessment/Plan: BUN/Cr 31.6/1.6 monitor renal function daily if continue to show uptrend consider Renal Consult Code(s): N17.9 - ACUTE KIDNEY FAILURE, UNSPECIFIED (2) Abscess of shaft of penis Assessment/Plan: ID and Urology consult no leukocytosis afebrile Zosyn UC and BC pending Bactroban wound culture pending GC and Chlamydia pending Code(s): N48.29 - OTHER INFLAMMATORY DISORDERS OF PENIS (3) CAD (coronary artery disease) Assessment/Plan: Atorvastatin Code(s): I25.10 - ATHSCL HEART DISEASE OF [place] CORONARY ARTERY W/O ANG PCTRS (4) CHF (congestive heart failure) Assessment/Plan: Carvedilol, Code(s): I50.9 - HEART FAILURE, UNSPECIFIED Assessment/Plan see problem list dvt ppx
[2019-10-09] MEDS: MUPIROCIN 2% TOPICAL OINTMENT 22 GM TUBE TP SCH ×2 (13:43→22:01)
--- NOTE | 2019-10-09 16:10 | PN ---
Progress Note (short form) - Note Progress Note: ID CONSULT DICTATED ? SOFT TISSUE ABSCESS OF PENIS GENITAL ULCER ?HSV ? SYPHILIS ? LGV ?CHANCROID ? NON INFECTIOUS (BECHETS) AWAIT C/S, SEROLOGY EVALUATION EMPIRIC VANCOMYCIN/ ZOSYN
[2019-10-09] MEDS: VANCOMYCIN 1 GRAM (PRE-DOCKED) 1 GM/250 ML BAG IVPB SCH (17:21)
[2019-10-09] MEDS: PIPERACILLIN/TAZOB 3.375 GM 3.375 GM in DEXTROSE 5%-WATER - 50 ML IVPB SCH (17:21)
--- NOTE | 2019-10-09 18:09 | CONS ---
DATE OF CONSULTATION: DATE OF DICTATION: 10/09/2019 HISTORY OF PRESENT ILLNESS: The patient is a 64-year-old male who was evaluated for a soft tissue abscess of the penis. He reports a 1-week history of penile swelling. He had developed a laceration on the dorsolateral aspect of the penis on the right side at the foreskin reflection. He reports developing worsening pain and dysuria. He was treated as an outpatient with oral Bactrim without clinical improvement. He presented to the emergency room where he was evaluated and treated with clindamycin and Zosyn. A CAT scan of the area was performed and shows a soft tissue abscess. He denies any traumatic injury. He did not cut himself with his zipper or other object. He states he has not sexually active for the past 6 months. He did give a history of syphilis years ago; however, no recent history of sexually-transmitted diseases. He denies any history of Herpes simplex. He states he tested HIV negative years ago. He is a nondiabetic. PAST MEDICAL HISTORY: Positive for coronary artery disease, asthma, hypertension, COPD, hyperlipidemia, congestive heart failure. PAST SURGICAL HISTORY: Status post implanted defibrillator. ALLERGIES: None known. MEDICATIONS: Include Zosyn, clindamycin, albuterol, Lipitor, Coreg, Colace. SOCIAL HISTORY: He resides in the community. 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 LABORATORY DATA: White count 6.2, hematocrit 36.9, platelets 208. Creatinine 1.6. Urinalysis negative for leukocyte esterase. RPR negative. Chlamydia and gonorrhea screens are pending. PHYSICAL EXAMINATION: General: He is in moderate distress secondary to penile pain. Vital Signs: Temperature 97.6. Blood pressure 125/70. Pulse 81 and regular. Respiration 20 per minute. HEENT: Sclerae are anicteric. Heart Sounds: S1, S2. Lungs: Clear. Abdomen: Soft, nontender. Genitalia: On examination of the penis there is a shallow-based laceration-like ulcer present on the right dorsolateral aspect of the penis just at the reflection of the foreskin. There is swelling of the foreskin and difficulty retracting it; however, the area was visualized and is exquisitely tender. No purulent drainage is noted. Shotty cervical adenopathy. IMPRESSION: 1. Rule out soft tissue abscess of the penis. 2. Genital ulcer, unclear etiology. The patient denies any recent sexual activity. If this is indeed the case, it is unlikely to be a sexually-transmitted genital ulcer such as Herpes simplex, lymphogranuloma venereum (LGV), syphilis or chancroid. PLAN: Will order serologies, await cultures. Empiric antibiotic coverage with vancomycin and Zosyn. Urology evaluation. Thanks for the kind referral. KAISER CULP M.D. [id number]
[2019-10-09] MEDS: ATORVASTATIN CA 20 MG TABLET (FP) PO SCH (22:01)
[2019-10-10] MEDS ORDERED: PIPERACILLIN/TAZOBACTAM 3.375 GM VIAL IVPB ONE ×3 (01:19→18:22)
[2019-10-10] MEDS ORDERED: DEXTROSE 5%-WATER - 50 ML IVPB ONE ×3 (01:20→18:23)
[2019-10-10] MEDS: PIPERACILLIN/TAZOB 3.375 GM 3.375 GM in DEXTROSE 5%-WATER - 50 ML IVPB SCH ×3 (01:58→18:26)
[2019-10-10] MEDS ORDERED: PIPERACILLIN/TAZOB 3.375 GM 3.375 GM in DEXTROSE 5%-WATER - 50 ML IVPB SCH (02:00)
[2019-10-10 08:26] LABS: HEMATOCRIT 37.9 % (35.4-49); MCH 26.2 pg (25.7-33.7); MCHC 31.7 g/dl (32.0-35.9); MEAN CELL VOLUME 82.5 fl (80-96); MEAN PLT VOLUME 8.4 fl (7.5-11.1); PLATELET COUNT 200 K/MM3 (134-434); WHITE BLOOD COUNT 7.6 K/mm3 (4.0-10.0)
[2019-10-10 09:06] LABS: ALBUMIN 3.1 g/dl (3.4-5.0); BILIRUBIN,TOTAL 0.9 mg/dL (0.2-1); BLOOD UREA NITROGEN 20.1 mg/dL (7-18); CALCIUM 8.8 mg/dL (8.5-10.1); CREATININE 1.3 mg/dL (0.55-1.3); POTASSIUM 4.7 mmol/L (3.5-5.1); TOT PROT 7.1 g/dl (6.4-8.2)
[2019-10-10] MEDS: MUPIROCIN 2% TOPICAL OINTMENT 22 GM TUBE TP SCH ×2 (09:52→21:22)
[2019-10-10] MEDS: CARVEDILOL 12.5 MG TABLET (FP) PO SCH ×2 (09:53→21:22)
[2019-10-10] MEDS ORDERED: PT OWN MED DRAWER 7, Y5N ONE (15:12)
--- NOTE | 2019-10-10 15:58 | PN ---
Progress Note, Physician Chief Complaint: penile swelling History of Present Illness: 64 year old male with PMH COPD CHF, CAD, HTN, HLD presents to the ED with penile swelling, being evaluated by ID and . - Current Medication List Current Medications: Active Medications Acetaminophen (Tylenol -) 650 mg PO Q6H PRN PRN Reason: PAIN LEVEL 4 - 6 Albuterol/Ipratropium (Duoneb -) 1 amp NEB RQID PRN PRN Reason: ASTHMA Atorvastatin Calcium (Lipitor -) 20 mg PO HS [facility] Last Admin: 10/09/19 22:01 Dose: 20 mg Documented by: Carvedilol (Coreg -) 12.5 mg PO BID [facility] Last Admin: 10/10/19 09:53 Dose: 12.5 mg Documented by: Docusate Sodium (Colace -) 100 mg PO Q12H PRN PRN Reason: CONSTIPATION Vancomycin HCl (Vancomycin (Pre-Docked)) 1 gm in 250 mls @ 166.667 mls/hr IVPB DAILY@1630 [facility]; Protocol Last Admin: 10/09/19 17:21 Dose: 166.667 mls/hr Documented by: Piperacillin Sod/Tazobactam (Sod 3.375 gm/ Dextrose) 50 mls @ 100 mls/hr IVPB Q8H-IV [facility]; Protocol Last Admin: 10/10/19 09:54 Dose: 100 mls/hr Documented by: Mupirocin (Bactroban 2% Ointment -) 1 applic TP BID [facility] Last Admin: 10/10/19 09:52 Dose: 1 applic Documented by: Non-Formulary Medication (Fluticasone/Salmeterol [Advair Hfa 115-21 Mcg Inhaler]) 1 inh PO BID [facility] Senna (Senna -) 2 tab PO HS PRN PRN Reason: CONSTIPATION - Objective Vital Signs: Vital Signs Temperature 98.1 F 10/10/19 14:32 Pulse Rate 72 10/10/19 14:32 Respiratory Rate 18 10/10/19 14:32 Blood Pressure 114/69 10/10/19 14:32 O2 Sat by Pulse Oximetry (%) 98 10/10/19 09:00 Constitutional: Yes: Well Nourished, No Distress HENT: Yes: Atraumatic, Normocephalic Neck: Yes: Supple Cardiovascular: Yes: Regular Rate and Rhythm Respiratory: Yes: Regular, CTA Bilaterally Gastrointestinal: Yes: Normal Bowel Sounds Genitourinary: Yes: Other Neurological: Yes: Alert, Oriented Labs: CBC, BMP 10/10/19 06:51 10/10/19 06:51 Problem List - Problems (1) MARCEL (acute kidney injury) Assessment/Plan: downtrending monitor Code(s): N17.9 - ACUTE KIDNEY FAILURE, UNSPECIFIED (2) Open wound of penis Assessment/Plan: ID following IV zosyn, vanco bc, uc - gc/ chlamydia pending Code(s): S31.20XA - UNSPECIFIED OPEN WOUND OF PENIS, INITIAL ENCOUNTER Qualifiers: Encounter type: initial encounter Qualified Code(s): S31.20XA - Unspecified open wound of penis, initial encounter (3) CHF (congestive heart failure) Assessment/Plan: home lasix on hold monitor Code(s): I50.9 - HEART FAILURE, UNSPECIFIED (4) COPD (chronic obstructive pulmonary disease) Assessment/Plan: nebs prn Code(s): J44.9 - CHRONIC OBSTRUCTIVE PULMONARY DISEASE, UNSPECIFIED
[2019-10-10] MEDS: VANCOMYCIN 1 GRAM (PRE-DOCKED) 1 GM/250 ML BAG IVPB SCH (16:33)
[2019-10-10] MEDS: ATORVASTATIN CA 20 MG TABLET (FP) PO SCH (21:22)
[2019-10-11] MEDS ORDERED: DEXTROSE 5%-WATER - 50 ML IVPB ONE ×3 (01:15→17:42)
[2019-10-11] MEDS ORDERED: PIPERACILLIN/TAZOBACTAM 3.375 GM VIAL IVPB ONE ×3 (01:15→17:42)
[2019-10-11] MEDS: PIPERACILLIN/TAZOB 3.375 GM 3.375 GM in DEXTROSE 5%-WATER - 50 ML IVPB SCH ×3 (01:22→17:55)
[2019-10-11] MEDS: CARVEDILOL 12.5 MG TABLET (FP) PO SCH ×2 (09:52→22:00)
[2019-10-11] MEDS: MUPIROCIN 2% TOPICAL OINTMENT 22 GM TUBE TP SCH (09:52)
--- NOTE | 2019-10-11 10:24 | PN ---
Progress Note, Physician - Current Medication List Current Medications: Active Medications Acetaminophen (Tylenol -) 650 mg PO Q6H PRN PRN Reason: PAIN LEVEL 4 - 6 Albuterol/Ipratropium (Duoneb -) 1 amp NEB RQID PRN PRN Reason: ASTHMA Atorvastatin Calcium (Lipitor -) 20 mg PO HS [facility] Last Admin: 10/10/19 21:22 Dose: 20 mg Documented by: Carvedilol (Coreg -) 12.5 mg PO BID [facility] Last Admin: 10/11/19 09:52 Dose: 12.5 mg Documented by: Docusate Sodium (Colace -) 100 mg PO Q12H PRN PRN Reason: CONSTIPATION Vancomycin HCl (Vancomycin (Pre-Docked)) 1 gm in 250 mls @ 166.667 mls/hr IVPB DAILY@1630 [facility]; Protocol Last Admin: 10/10/19 16:33 Dose: 166.667 mls/hr Documented by: Piperacillin Sod/Tazobactam (Sod 3.375 gm/ Dextrose) 50 mls @ 100 mls/hr IVPB Q8H-IV [facility]; Protocol Last Admin: 10/11/19 09:52 Dose: 100 mls/hr Documented by: Mupirocin (Bactroban 2% Ointment -) 1 applic TP BID [facility] Last Admin: 10/11/19 09:52 Dose: 1 applic Documented by: Non-Formulary Medication (Fluticasone/Salmeterol [Advair Hfa 115-21 Mcg Inhaler]) 1 inh PO BID [facility] Senna (Senna -) 2 tab PO HS PRN PRN Reason: CONSTIPATION - Objective Vital Signs: Vital Signs Temperature 98 F 10/11/19 05:38 Pulse Rate 82 10/11/19 05:38 Respiratory Rate 18 10/11/19 05:38 Blood Pressure 128/74 10/11/19 05:38 O2 Sat by Pulse Oximetry (%) 98 10/10/19 21:00 Cardiovascular: Yes: S1, S2 Respiratory: Yes: Regular, CTA Bilaterally Gastrointestinal: Yes: Normal Bowel Sounds, Soft Genitourinary: Yes: Other (penis with excoriation) Labs: CBC, BMP 10/10/19 06:51 10/10/19 06:51 Assessment/Plan - Problems (1) MARCEL (acute kidney injury) Assessment/Plan: downtrending monitor Code(s): N17.9 - ACUTE KIDNEY FAILURE, UNSPECIFIED (2) Open wound of penis Assessment/Plan: ID following IV zosyn, vanco bc, uc - gc/ chlamydia pending mycolog Code(s): S31.20XA - UNSPECIFIED OPEN WOUND OF PENIS, INITIAL ENCOUNTER Qualifiers: Encounter type: initial encounter Qualified Code(s): S31.20XA - Unspecified open wound of penis, initial encounter (3) CHF (congestive heart failure) Assessment/Plan: home lasix on hold monitor Code(s): I50.9 - HEART FAILURE, UNSPECIFIED (4) COPD (chronic obstructive pulmonary disease) Assessment/Plan: nebs prn Code(s): J44.9 - CHRONIC OBSTRUCTIVE PULMONARY DISEASE, UNSPECIFIED
[2019-10-11] MEDS: NYSTATIN/TRIAMCINOLONE TOPICAL OINTMENT 15 GM TUBE TP SCH ×2 (12:19→22:01)
[2019-10-11] MEDS: VANCOMYCIN 1 GRAM (PRE-DOCKED) 1 GM/250 ML BAG IVPB SCH (16:06)
[2019-10-11] MEDS: ATORVASTATIN CA 20 MG TABLET (FP) PO SCH (22:01)
[2019-10-12] MEDS ORDERED: PIPERACILLIN/TAZOBACTAM 3.375 GM VIAL IVPB ONE ×4 (04:30→16:28)
[2019-10-12] MEDS ORDERED: DEXTROSE 5%-WATER - 50 ML IVPB ONE ×4 (04:31→16:28)
[2019-10-12] MEDS: PIPERACILLIN/TAZOB 3.375 GM 3.375 GM in DEXTROSE 5%-WATER - 50 ML IVPB SCH ×3 (05:00→17:37)
[2019-10-12] MEDS: CARVEDILOL 12.5 MG TABLET (FP) PO SCH ×2 (10:28→21:33)
[2019-10-12] MEDS: NYSTATIN/TRIAMCINOLONE TOPICAL OINTMENT 15 GM TUBE TP SCH ×2 (10:30→21:34)
--- NOTE | 2019-10-12 11:24 | PN ---
Progress Note, Physician - Current Medication List Current Medications: Active Medications Acetaminophen (Tylenol -) 650 mg PO Q6H PRN PRN Reason: PAIN LEVEL 4 - 6 Albuterol/Ipratropium (Duoneb -) 1 amp NEB RQID PRN PRN Reason: ASTHMA Atorvastatin Calcium (Lipitor -) 20 mg PO HS [facility] Last Admin: 10/11/19 22:01 Dose: 20 mg Documented by: Carvedilol (Coreg -) 12.5 mg PO BID [facility] Last Admin: 10/12/19 10:28 Dose: 12.5 mg Documented by: Docusate Sodium (Colace -) 100 mg PO Q12H PRN PRN Reason: CONSTIPATION Vancomycin HCl (Vancomycin (Pre-Docked)) 1 gm in 250 mls @ 166.667 mls/hr IVPB DAILY@1630 [facility]; Protocol Last Admin: 10/11/19 16:06 Dose: 166.667 mls/hr Documented by: Piperacillin Sod/Tazobactam (Sod 3.375 gm/ Dextrose) 50 mls @ 100 mls/hr IVPB Q8H-IV [facility]; Protocol Last Admin: 10/12/19 10:28 Dose: 100 mls/hr Documented by: Non-Formulary Medication (Fluticasone/Salmeterol [Advair Hfa 115-21 Mcg Inhaler]) 1 inh PO BID [facility] Nystatin/Triamcinolone Acetonide (Mycolog Ii Ointment -) 1 applic TP BID [facility] Last Admin: 10/12/19 10:30 Dose: 1 applic Documented by: Senna (Senna -) 2 tab PO HS PRN PRN Reason: CONSTIPATION - Objective Vital Signs: Vital Signs Temperature 98.0 F 10/12/19 10:00 Pulse Rate 72 10/12/19 10:00 Respiratory Rate 19 10/12/19 10:00 Blood Pressure 111/65 10/12/19 10:00 O2 Sat by Pulse Oximetry (%) 96 10/11/19 21:00 Cardiovascular: Yes: S1, S2 Respiratory: Yes: Regular, CTA Bilaterally Gastrointestinal: Yes: Normal Bowel Sounds, Soft. No: Tenderness Labs: CBC, BMP 10/10/19 06:51 10/10/19 06:51 Assessment/Plan - Problems (1) MARCEL (acute kidney injury) Assessment/Plan: downtrending monitor Code(s): N17.9 - ACUTE KIDNEY FAILURE, UNSPECIFIED (2) Open wound of penis Assessment/Plan: ID following IV zosyn, vanco bc, uc - gc/ chlamydia pending mycolog Code(s): S31.20XA - UNSPECIFIED OPEN WOUND OF PENIS, INITIAL ENCOUNTER Qualifiers: Encounter type: initial encounter Qualified Code(s): S31.20XA - Unspecified open wound of penis, initial encounter (3) CHF (congestive heart failure) Assessment/Plan: home lasix on hold monitor Code(s): I50.9 - HEART FAILURE, UNSPECIFIED (4) COPD (chronic obstructive pulmonary disease) Assessment/Plan: nebs prn Code(s): J44.9 - CHRONIC OBSTRUCTIVE PULMONARY DISEASE, UNSPECIFIED
[2019-10-12] MEDS: VANCOMYCIN 1 GRAM (PRE-DOCKED) 1 GM/250 ML BAG IVPB SCH (17:25)
[2019-10-12] MEDS: ATORVASTATIN CA 20 MG TABLET (FP) PO SCH (21:33)
[2019-10-13] MEDS ORDERED: DEXTROSE 5%-WATER - 50 ML IVPB ONE ×2 (02:22→02:23)
[2019-10-13] MEDS ORDERED: PIPERACILLIN/TAZOBACTAM 3.375 GM VIAL IVPB ONE ×2 (02:22→02:23)
[2019-10-13] MEDS: PIPERACILLIN/TAZOB 3.375 GM 3.375 GM in DEXTROSE 5%-WATER - 50 ML IVPB SCH ×2 (02:43→10:09)
--- NOTE | 2019-10-13 08:39 | DS ---
Physical Examination Vital Signs: Vital Signs Temperature 98.7 F 10/13/19 02:00 Pulse Rate 75 10/13/19 02:00 Respiratory Rate 20 10/13/19 02:00 Blood Pressure 121/71 10/13/19 02:00 O2 Sat by Pulse Oximetry (%) 96 10/12/19 21:00 Cardiovascular: Yes: Regular Rate and Rhythm Respiratory: Yes: Regular, CTA Bilaterally Gastrointestinal: Yes: Normal Bowel Sounds, Soft Renal/: Yes: Other (no erythema or dc) Labs: CBC, BMP 10/10/19 06:51 10/10/19 06:51 Discharge Summary Problems reviewed: Yes Reason For Visit: ACUTE KIDNEY INJURY,ABSCESS ON SHAFT OF PENIS Current Active Problems MARCEL (acute kidney injury) (Acute) Abscess of shaft of penis (Acute) CAD (coronary artery disease) (Acute) Open wound of penis (Acute) Hospital Course: - Problems (1) MARCEL (acute kidney injury) Assessment/Plan: downtrending monitor Code(s): N17.9 - ACUTE KIDNEY FAILURE, UNSPECIFIED (2) Open wound of penis Assessment/Plan: ID following IV zosyn, vanco--po abx bc, uc -negative gc/ chlamydia neg mycolog Code(s): S31.20XA - UNSPECIFIED OPEN WOUND OF PENIS, INITIAL ENCOUNTER Qualifiers: Encounter type: initial encounter Qualified Code(s): S31.20XA - Unspecified open wound of penis, initial encounter (3) CHF (congestive heart failure) Assessment/Plan: home lasix on hold monitor Code(s): I50.9 - HEART FAILURE, UNSPECIFIED (4) COPD (chronic obstructive pulmonary disease) Assessment/Plan: nebs prn Code(s): J44.9 - CHRONIC OBSTRUCTIVE PULMONARY DISEASE, UNSPECIFIED Condition: Stable - Instructions Referrals: Vivek Almanza [Primary Care Provider] - 1 Week Disposition: HOME - Home Medications Comprehensive Discharge Medication List: Ambulatory Orders Albuterol Sulfate Inhaler - [Ventolin HFA Inhaler -] 1 - 2 inh PO QID PRN 11/07/17 Carvedilol [Coreg -] 12.5 mg PO BID 11/07/17 Fluticasone/Salmeterol [Advair Hfa 115-21 Mcg Inhaler] 1 inh PO BID 11/07/17 Furosemide [Lasix -] 20 mg PO DAILY #60 tablet 11/07/17 Ipratropium [place] [Atrovent Hfa] 12.9 gm IH BID 11/07/17 Atorvastatin Ca [Lipitor] 20 mg PO DAILY 11/27/18 Atorvastatin Ca [Lipitor] 20 mg PO HS #30 tablet 11/29/18 Pantoprazole Sodium [Protonix] 40 mg PO BID #30 tablet.dr GORDON 2 11/29/18 Acetaminophen [Tylenol .Regular Strength -] 650 mg PO Q6H PRN tablet 10/13/19 Amoxicillin/Potassium Clav [Augmentin 875-125 Tablet] 1 each PO BID #10 tablet 10/13/19 Nystatin/Triamcinolone Top Oin [Mycolog II -] 1 applic TP BID #15 gr 10/13/19 Sennosides [Senna -] 2 tab PO HS PRN tablet 10/13/19
[2019-10-13] MEDS: CARVEDILOL 12.5 MG TABLET (FP) PO SCH (10:08)
[2019-10-13] MEDS: NYSTATIN/TRIAMCINOLONE TOPICAL OINTMENT 15 GM TUBE TP SCH (10:08)
[2019-10-13 10:20] VITALS: BP 120/68; PULSE 73; TEMP 98
[2019-10-13] MEDS ORDERED: PT OWN MED DRAWER 7, Y5N ONE (12:16)
[2019-10-16 01:09] LABS: CHLAMYDIA PSITTACI IG-A AB <1:16 (.); CHLM TRACH DK-A <1:16 (.); CHLM TRACH DK-G <1:64 (.); CHLM TRACH DK-M <1:10 (.); CHLM TRACH L1-A <1:16 (.); CHLM TRACH L1G <1:64 (.)
== END 2019-10-13 11:05 | disposition home or self-care (01) | DRG 683 ==
LOC: JER 17:13 → JERBED 22:46 → J6S 10-09 00:48
PROVIDERS: ADMIT Family Medicine; ATTEND Family Medicine
DX: N17.9 Acute kidney failure, unspecified (principal); L98.498 Non-pressure chronic ulcer of skin of other sites with other specified severity; N48.21 Abscess of corpus cavernosum and penis; I25.10 Atherosclerotic heart disease of native coronary artery without angina pectoris; I50.9 Heart failure, unspecified; J44.9 Chronic obstructive pulmonary disease, unspecified; E78.5 Hyperlipidemia, unspecified; I10 Essential (primary) hypertension; Z95.5 Presence of coronary angioplasty implant and graft
CPT/HCPCS: 36415; 72192-TC; 80053; 81003; 83735; 84100; 85025; 85027; 86593; 86631; 86632; 87040; 87086; 87491; 87591; 90732; 99285-25; G0009

== ENCOUNTER 2020-03-15 12:04 | Emergency (ER) | payer BC ==
[2020-03-15 12:24] VITALS: BP 132/78; PULSE 90; TEMP 97.2; BMI 29.8
--- NOTE | 2020-03-15 13:07 | PDOC ---
History of Present Illness - General Chief Complaint: Penile Drainage Stated Complaint: PAINFUL URINATION Time Seen by Provider: 03/15/20 12:34 - History of Present Illness Initial Comments: 03/15/20 13:10 65-year-old male presents with a painful swollen penis for the last 4 days after intercourse in which a condom broke he has no systemic symptoms or urinary retention Past History - Medical History Allergies/Adverse Reactions: Allergies Allergy/AdvReac Type Severity Reaction Status Date / Time No Known Allergies Allergy Verified 03/15/20 12:20 Home Medications: Ambulatory Orders Albuterol Sulfate Inhaler - [Ventolin HFA Inhaler -] 1 - 2 inh PO QID PRN 11/07/17 Carvedilol [Coreg -] 12.5 mg PO BID 11/07/17 Fluticasone/Salmeterol [Advair Hfa 115-21 Mcg Inhaler] 1 inh PO BID 11/07/17 Furosemide [Lasix -] 20 mg PO DAILY #60 tablet 11/07/[address] [place] [Atrovent Hfa] 12.9 gm IH BID 11/07/17 Atorvastatin Ca [Lipitor] 20 mg PO DAILY 11/27/18 Atorvastatin Ca [Lipitor] 20 mg PO HS #30 tablet 11/29/18 Pantoprazole Sodium [Protonix] 40 mg PO BID #30 tablet. MDD 2 11/29/18 Acetaminophen [Tylenol .Regular Strength -] 650 mg PO Q6H PRN tablet 10/13/19 Amoxicillin/Potassium Clav [Augmentin 875-125 Tablet] 1 each PO BID #10 tablet 10/13/19 Nystatin/Triamcinolone Top Oin [Mycolog II -] 1 applic TP BID #15 gr 10/13/19 Sennosides [Senna -] 2 tab PO HS PRN tablet 10/13/19 Amox-Tr/K Cl [Augmentin - 875Mg Tablet] 1 tab PO BID #20 tablet 03/15/20 Oxycodone HCl/Acetaminophen [Percocet 5-325 mg Tablet] 1 - 2 tab PO Q4H #20 tablet MDD 6 03/15/20 Asthma: Yes Cardiac Disorders: Yes (PACEMAKER) COPD: Yes HTN: Yes Hypercholesterolemia: Yes - Surgical History Cardiac Surgery: Yes (PACE MAKER, STENT X 1) - Immunization History Immunization Up to Date: Yes - Psycho-Social/Smoking History Smoking History: Current every day smoker Have you smoked in the past 12 months: Yes Number of Cigarettes Smoked Daily: 4 Information on smoking cessation initiated: No 'Breaking Loose' booklet given: 07/06/17 - Substance Abuse Hx (Audit-C & DAST Scrn) How often the patient has a drink containing alcohol: Monthly or less Number of drinks the patient has on a typical day: 1 or 2 How often the patient has six or more drinks on one occasion: Never Score: In Men: 4 or > Positive; In Women: 3 or > Positive: 1 Screen Result (Pos requires Nsg. Audit-10AR): Negative In the last yr the pt used illegal drug/Rx for NonMed reason: No Score: Yes response is considered Positive: 0 Screen Result (Positive result requires Nsg. DAST-10): Negative *Physical Exam - Vital Signs Last Vital Signs Temp Pulse Resp BP Pulse Ox 97.2 F L 90 18 132/78 100 03/15/20 12:21 03/15/20 12:21 03/15/20 12:21 03/15/20 12:21 03/15/20 12:21 - Physical Exam 03/15/20 13:11 The foreskin is edematous and swollen proximally oriented in relationship to the deshpande unable to be retracted with a approximately 2 cm horizontal fissure exposing the penile fascia Medical Decision Making - Medical Decision Making 03/15/20 12:54 Urology Called for ER consult 03/15/20 13:08 Urology to come and evaluate patient 03/15/20 14:00 Dr. Weinberg from urology was able to come and reduce the paraphimosis. Patient was given a prescription for Augmentin and Percocet first dose of antibiotics and pain medication given in the emergency room he will follow-up tomorrow with urology for an outpatient circumcision. I have reviewed the pathophysiology with the patient. They are in agreement with the treatment plan all questions were answered to their satisfaction. Understanding for follow-up without fail was also conveyed to the patient. Again they are in agreement. Discharge - Discharge Information Problems reviewed: Yes Clinical Impression/Diagnosis: Paraphimosis Condition: Stable Disposition: HOME - Admission No - Additional Discharge Information Prescriptions: Amox-Tr/K Cl [Augmentin - 875Mg Tablet] 1 tab PO BID #20 tablet Oxycodone HCl/Acetaminophen [Percocet 5-325 mg Tablet] 1 - 2 tab PO Q4H #20 tab let MDD 6 - Follow up/Referral Referrals: Jerod Tovar MD [Staff Physician] - - Patient Discharge Instructions Additional Instructions: You must follow-up with urology tomorrow without fail. Please call the office today and explained to the reel slitter that you was seen in the emergency room by Dr. Weinberg and you need to be re-seen tomorrow for an emergency circumcision. Please take the antibiotics and pain medication as described you were given the first dose of antibiotics and pain medication in the emergency room. Return to the emergency room for further issues. - Post Discharge Activity
[2020-03-15] MEDS ORDERED: AMOX TR/POT CLAV 875MG/125MG TABLETS (FP) PO ONE (13:56)
--- NOTE | 2020-03-15 14:17 | CON.GU ---
Consult Consult Specialty:: Referred by:: MARIA ELENA VASQUEZ Reason for Consultation:: penile swelling - History of Present Illness Chief Complaint: penile swelling and pain History of Present Illness: 65-year-old male presents with a painful swollen penis for the last 4 days after intercourse in which a condom broke he has no systemic symptoms or urinary retention. cons req. - History Source History Provided By: Patient, Medical Record - Past Medical History Cardio/Vascular: Yes: CHF, HTN, Hyperlipdemia, CT Pulmonary: Yes: Asthma, COPD Gastrointestinal: Yes: Other (s/p egd and colosncopy colonic polyps hemorroids eosphageal varices gastric ulcer gastritis and surgical pathology - h pylori is positive) Hepatobiliary: Yes: Hepatitis C Infectious Disease: Yes: Tuberculosis Psych: Yes: Depression Musculoskeletal: Yes: Osteoarthritis - Past Surgical History Past Surgical History: Yes: Permanent Pacemaker, Stent - Alcohol/Substance Use Hx Alcohol Use: Yes (1-2 beers per day) History of Substance Use: reports: None - Smoking History Smoking history: Current every day smoker Have you smoked in the past 12 months: Yes Aproximately how many cigarettes per day: 4 - Social History ADL: Independent 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 [employer] History of Recent Travel: No Home Medications - Allergies Allergies/Adverse Reactions: Allergies Allergy/AdvReac Type Severity Reaction Status Date / Time No Known Allergies Allergy Verified 03/15/20 12:20 - Home Medications Home Medications: Ambulatory Orders Albuterol Sulfate Inhaler - [Ventolin HFA Inhaler -] 1 - 2 inh PO QID PRN 11/21 Carvedilol [Coreg -] 12.5 mg PO BID 11/07/17 Fluticasone/Salmeterol [Advair Hfa 115-21 Mcg Inhaler] 1 inh PO BID 11/07/17 Furosemide [Lasix -] 20 mg PO DAILY #60 tablet 11/07/17 Ipratropium [place] [Atrovent Hfa] 12.9 gm IH BID 11/07/17 Atorvastatin Ca [Lipitor] 20 mg PO DAILY 11/27/18 Atorvastatin Ca [Lipitor] 20 mg PO HS #30 tablet 11/29/18 Pantoprazole Sodium [Protonix] 40 mg PO BID #30 tablet.dr GORDON 2 11/29/18 Acetaminophen [Tylenol .Regular Strength -] 650 mg PO Q6H PRN tablet 10/13/19 Amoxicillin/Potassium Clav [Augmentin 875-125 Tablet] 1 each PO BID #10 tablet 10/13/19 Nystatin/Triamcinolone Top Oin [Mycolog II -] 1 applic TP BID #15 gr 10/13/19 Sennosides [Senna -] 2 tab PO HS PRN tablet 10/13/19 Amox-Tr/K Cl [Augmentin - 875Mg Tablet] 1 tab PO BID #20 tablet 03/15/20 Oxycodone HCl/Acetaminophen [Percocet 5-325 mg Tablet] 1 - 2 tab PO Q4H #20 tablet MDD 6 03/15/20 Review of Systems - Review of Systems Genitourinary: reports: Pain Physical Exam- Vital Signs: Vital Signs Temperature 97.2 F L 03/15/20 12:21 Pulse Rate 90 03/15/20 12:21 Respiratory Rate 18 03/15/20 12:21 Blood Pressure 132/78 03/15/20 12:21 O2 Sat by Pulse Oximetry (%) 100 03/15/20 12:21 Gastrointestinal: Yes: WNL Renal/: Yes: WNL Penis: Yes: Other (paraphimosis) Problem List - Problems (1) Paraphimosis Assessment/Plan: reduced, rx augmentin, rto 1 week to book circumcision Code(s): N47.2 - PARAPHIMOSIS
[2020-03-15] MEDS ORDERED: AMOX TR/POT CLAV 875MG/125MG TABLETS (FP) ONE (14:35)
[2020-03-15 15:34] LABS: BASO % 0.6 % (0-2.0); EOS % 1.9 % (0-4.5); HEMATOCRIT 38.2 % (35.4-49); LYMPH % 17.3 % (8-40); MCH 25.7 pg (25.7-33.7); MCHC 31.4 g/dl (32.0-35.9); MEAN CELL VOLUME 81.9 fl (80-96); MEAN PLT VOLUME 8.4 fl (7.5-11.1); NEUT % 67.2 % (42.8-82.8); PLATELET COUNT 173 K/MM3 (134-434); RBC 4.67 M/mm3 (4.00-5.60); RDW 18.2 % (11.9-15.9)
[2020-03-15 15:39] LABS: INR 1.03 (0.83-1.09); PROTHROMBIN TIME (PATIENT) 12.2 SEC (9.7-13.0)
[2020-03-15 15:45] LABS: EPI CELLS 6 /uL (0-25.1); HYALINE CASTS 0 /uL (0-3.1); PH,URINE 5.5 (5.0-8.0); URINE APPEARANCE CLEAR; URINE BACTERIA 201 /uL (0-1359); URINE BILIRUBIN NEGATIVE (NEGATIVE); URINE COLOR YELLOW; URINE GLUCOSE (UA) NEGATIVE (NEGATIVE); URINE KETONE NEGATIVE (NEGATIVE); URINE LEUK ESTERASE NEGATIVE (NEGATIVE); URINE NITRITE NEGATIVE (NEGATIVE); URINE PROTEIN 1+ (NEGATIVE); URINE RBC 5 /uL (0-23.9); URINE WBC 7 /uL (0-25.8)
[2020-03-15 15:56] LABS: ALBUMIN 3.5 g/dl (3.4-5.0); BILIRUBIN,TOTAL 0.5 mg/dL (0.2-1); BLOOD UREA NITROGEN 14.8 mg/dL (7-18); POTASSIUM 3.8 mmol/L (3.5-5.1); TOT PROT 7.6 g/dl (6.4-8.2)
== END 2020-03-15 15:06 | disposition home or self-care (01) ==
LOC: JERFT 12:04
DX: N47.2 Paraphimosis (principal)
CPT/HCPCS: 36415; 80053; 81003; 85025; 85610; 86593; 86780; 87086; 87491; 87591; 99285-25

== ENCOUNTER 2020-08-18 12:08 | Inpatient (IN) | payer SELFPAY ==
[2020-08-18 12:24] VITALS: BMI 29.0
[2020-08-18] MEDS ORDERED: ALBUTEROL SO4 2.5/IPRATROPIUM 0.5 INH SOL 3 ML VIAL.NEB. NEB ONE ×2 (13:30→13:34)
[2020-08-18] MEDS ORDERED: DEXAMETHASONE 4 MG TABLET (FP) PO ONE (13:30)
[2020-08-18] MEDS ORDERED: DEXAMETHASONE SOD PHOSPHATE 10 MG/1 ML VIAL ONE (13:34)
[2020-08-18] MEDS ORDERED: LACTATED RINGERS SOLUTION 1000 ML INFUS.BAG IV ONE (13:47)
[2020-08-18 14:22] LABS: BASO % 0.5 % (0-2.0); EOS % 1.9 % (0-4.5); HEMATOCRIT 31.6 % (35.4-49); HEMOGLOBIN 10.2 GM/dL (11.7-16.9); MCH 27.5 pg (25.7-33.7); MCHC 32.4 g/dl (32.0-35.9); MEAN CELL VOLUME 84.9 fl (80-96); MEAN PLT VOLUME 8.9 fl (7.5-11.1); MONO % 10.4 % (3.8-10.2); NEUT % 73.2 % (42.8-82.8); PLATELET COUNT 108 K/MM3 (134-434); RBC 3.73 M/mm3 (4.00-5.60); RDW 18.1 % (11.9-15.9)
[2020-08-18] MEDS ORDERED: PANTOPRAZOLE SODIUM 40 MG VIAL IVPUSH ONE (14:32)
[2020-08-18 14:35] LABS: INR 1.35 (0.83-1.09); PROTHROMBIN TIME (PATIENT) 16.2 SEC (9.7-13.0)
[2020-08-18 14:49] LABS: POTASSIUM 3.3 mmol/L (3.5-5.1)
[2020-08-18 14:51] LABS: ALBUMIN 3.3 g/dl (3.4-5.0); CALCIUM 8.8 mg/dL (8.5-10.1)
[2020-08-18 14:55] LABS: CREATININE 1.4 mg/dL (0.55-1.3)
[2020-08-18 14:56] LABS: BILIRUBIN,TOTAL 1.3 mg/dL (0.2-1); TOT PROT 7.3 g/dl (6.4-8.2)
[2020-08-18] MEDS ORDERED: PANTOPRAZOLE SODIUM 40 MG/100 ML BAG IVPB ONE (15:05)
[2020-08-18] MEDS ORDERED: POTASSIUM CHLORIDE TABS 20 MEQ TABLET.ER (FP) PO ONE ×2 (15:45→16:02)
[2020-08-18] MEDS ORDERED: PANTOPRAZOLE 40 MG TABLET ONE (22:43)
[2020-08-18] MEDS: PANTOPRAZOLE 40 MG TABLET PO SCH (22:57)
[2020-08-18 23:04] LABS: HEMOGLOBIN 9.9 GM/dL (11.7-16.9); MCH 27.5 pg (25.7-33.7); MCHC 31.9 g/dl (32.0-35.9); MEAN CELL VOLUME 86.2 fl (80-96); MEAN PLT VOLUME 9.4 fl (7.5-11.1); PLATELET COUNT 122 K/MM3 (134-434); RDW 18.5 % (11.9-15.9); WHITE BLOOD COUNT 3.2 K/mm3 (4.0-10.0)
[2020-08-19] MEDS ORDERED: FUROSEMIDE 40 MG/4 ML INJECTABLE VIAL IVPUSH ONE (05:00)
[2020-08-19] MEDS ORDERED: FUROSEMIDE 40 MG/4 ML INJECTABLE VIAL ONE (06:29)
[2020-08-19] MEDS ORDERED: PANTOPRAZOLE 40 MG TABLET ONE (10:46)
[2020-08-19] MEDS ORDERED: CARVEDILOL 12.5 MG TABLET (FP) ONE (10:47)
[2020-08-19] MEDS: BUDESONIDE/FORMETEROL FUMARATE 80/4.5 mcg INHALER IH SCH ×2 (10:51→21:34)
[2020-08-19] MEDS: PANTOPRAZOLE 40 MG TABLET PO SCH ×2 (10:51→14:06)
[2020-08-19] MEDS: TIOTROPIUM BROMIDE 2.5 MCG (SPIRIVA) RESPIMAT INHALER IH SCH ×2 (10:51→21:34)
[2020-08-19] MEDS: CARVEDILOL 12.5 MG TABLET (FP) PO SCH ×2 (10:51→21:34)
[2020-08-19] MEDS ORDERED: D5-NS + 40 MEQ KCL - 40 MEQ/1,000 ML INFUS.BAG IV SCH ×2 (11:15)
[2020-08-19 12:50] LABS: BASO % 0.1 % (0-2.0); HEMATOCRIT 34.2 % (35.4-49); HEMOGLOBIN 10.6 GM/dL (11.7-16.9); LYMPH % 5.5 % (8-40); MCH 27.1 pg (25.7-33.7); MCHC 31.1 g/dl (32.0-35.9); MEAN CELL VOLUME 87.2 fl (80-96); MEAN PLT VOLUME 9.4 fl (7.5-11.1); MONO % 6.4 % (3.8-10.2); PLATELET COUNT 138 K/MM3 (134-434); RBC 3.92 M/mm3 (4.00-5.60); RDW 18.9 % (11.9-15.9)
[2020-08-19 13:11] LABS: POTASSIUM 4.3 mmol/L (3.5-5.1)
[2020-08-19 13:13] LABS: CALCIUM 9.3 mg/dL (8.5-10.1)
[2020-08-19 13:14] LABS: BLOOD UREA NITROGEN 26.2 mg/dL (7-18)
[2020-08-19 13:16] LABS: ALBUMIN 3.5 g/dl (3.4-5.0); CREATININE 1.5 mg/dL (0.55-1.3)
[2020-08-19 13:18] LABS: BILIRUBIN,TOTAL 1.1 mg/dL (0.2-1); IRON SERUM 27 ug/dL (50-175); TOT PROT 7.9 g/dl (6.4-8.2); TOTAL IRON BINDING CAPACITY 444 ug/dL (250-450)
[2020-08-19] MEDS: ATORVASTATIN CA 20 MG TABLET (FP) PO SCH (21:34)
[2020-08-20] MEDS: PANTOPRAZOLE 40 MG TABLET PO SCH (10:32)
[2020-08-20] MEDS: CARVEDILOL 12.5 MG TABLET (FP) PO SCH ×2 (10:32→21:50)
[2020-08-20] MEDS: BUDESONIDE/FORMETEROL FUMARATE 80/4.5 mcg INHALER IH SCH ×2 (10:33→21:50)
[2020-08-20] MEDS: TIOTROPIUM BROMIDE 2.5 MCG (SPIRIVA) RESPIMAT INHALER IH SCH ×2 (10:33→21:50)
[2020-08-20] MEDS ORDERED: FLU VACCINE (FLULAVAL) PF 60 MCG/0.5 ML SYRINGE 2020-2021 IM ONE (11:00)
[2020-08-20] MEDS ORDERED: FUROSEMIDE 40 MG TABLET (FP) PO ONE (12:46)
[2020-08-20 13:08] LABS: BASO % 0.3 % (0-2.0); EOS % 0.7 % (0-4.5); HEMATOCRIT 32.7 % (35.4-49); HEMOGLOBIN 10.2 GM/dL (11.7-16.9); LYMPH % 11.2 % (8-40); MCHC 31.2 g/dl (32.0-35.9); MEAN CELL VOLUME 86.6 fl (80-96); MEAN PLT VOLUME 9.5 fl (7.5-11.1); MONO % 9.5 % (3.8-10.2); NEUT % 78.3 % (42.8-82.8); PLATELET COUNT 114 K/MM3 (134-434); RBC 3.77 M/mm3 (4.00-5.60); RDW 18.5 % (11.9-15.9); WHITE BLOOD COUNT 6.4 K/mm3 (4.0-10.0)
[2020-08-20 13:25] LABS: POTASSIUM 3.7 mmol/L (3.5-5.1)
[2020-08-20 13:28] LABS: ALBUMIN 3.4 g/dl (3.4-5.0); BLOOD UREA NITROGEN 38.2 mg/dL (7-18); CALCIUM 8.7 mg/dL (8.5-10.1)
[2020-08-20 13:30] LABS: CREATININE 1.7 mg/dL (0.55-1.3)
[2020-08-20 13:33] LABS: BILIRUBIN,TOTAL 0.8 mg/dL (0.2-1); TOT PROT 7.4 g/dl (6.4-8.2)
[2020-08-20] MEDS ORDERED: PT OWN MED DRAWER 7, Y5N ONE (21:43)
[2020-08-20] MEDS: SACUBITRIL/VALSARTAN 24 MG-26 MG TABLET PO SCH (21:50)
[2020-08-20] MEDS: ATORVASTATIN CA 20 MG TABLET (FP) PO SCH (21:50)
[2020-08-21 08:25] VITALS: BP 123/69; PULSE 74; TEMP 98
[2020-08-21 08:40] LABS: BASO % 0.5 % (0-2.0); EOS % 1.4 % (0-4.5); HEMATOCRIT 29.9 % (35.4-49); HEMOGLOBIN 9.5 GM/dL (11.7-16.9); LYMPH % 8.5 % (8-40); MCH 27.5 pg (25.7-33.7); MCHC 31.9 g/dl (32.0-35.9); MEAN CELL VOLUME 86.1 fl (80-96); MEAN PLT VOLUME 9.5 fl (7.5-11.1); MONO % 10.9 % (3.8-10.2); NEUT % 78.7 % (42.8-82.8); PLATELET COUNT 106 K/MM3 (134-434); RBC 3.47 M/mm3 (4.00-5.60); RDW 17.9 % (11.9-15.9); WHITE BLOOD COUNT 4.7 K/mm3 (4.0-10.0)
[2020-08-21] MEDS ORDERED: PT OWN MED DRAWER 7, Y5N ONE ×2 (08:53→14:25)
[2020-08-21 09:02] LABS: POTASSIUM 3.1 mmol/L (3.5-5.1)
[2020-08-21 09:15] LABS: BLOOD UREA NITROGEN 28.8 mg/dL (7-18); CALCIUM 8.3 mg/dL (8.5-10.1)
[2020-08-21 09:18] LABS: CREATININE 1.3 mg/dL (0.55-1.3)
[2020-08-21 09:21] LABS: TOT PROT 6.2 g/dl (6.4-8.2)
[2020-08-21] MEDS ORDERED: POTASSIUM CHLORIDE ORAL LIQUID 20 MEQ/15 ML PO ONE (09:41)
[2020-08-21] MEDS: PANTOPRAZOLE 40 MG TABLET PO SCH (10:06)
[2020-08-21] MEDS: TIOTROPIUM BROMIDE 2.5 MCG (SPIRIVA) RESPIMAT INHALER IH SCH (10:06)
[2020-08-21] MEDS: CARVEDILOL 12.5 MG TABLET (FP) PO SCH (10:06)
[2020-08-21] MEDS: SACUBITRIL/VALSARTAN 24 MG-26 MG TABLET PO SCH (10:06)
[2020-08-21] MEDS: BUDESONIDE/FORMETEROL FUMARATE 80/4.5 mcg INHALER IH SCH (10:06)
[2020-08-21] MEDS ORDERED: PANTOPRAZOLE 40 MG TABLET PO SCH (10:30)
== END 2020-08-21 14:37 | disposition home or self-care (01) | DRG 253 ==
LOC: JER 12:08 → JERBED 19:42 → J4W 08-19 11:18
PROVIDERS: ADMIT Hospitalist; ATTEND Family Medicine
DX: K92.2 Gastrointestinal hemorrhage, unspecified (principal); I50.23 Acute on chronic systolic (congestive) heart failure; N17.9 Acute kidney failure, unspecified; I42.9 Cardiomyopathy, unspecified; I10 Essential (primary) hypertension; I25.10 Atherosclerotic heart disease of native coronary artery without angina pectoris; R63.0 Anorexia; E87.6 Hypokalemia; K74.60 Unspecified cirrhosis of liver; Z95.5 Presence of coronary angioplasty implant and graft; E78.5 Hyperlipidemia, unspecified; J44.9 Chronic obstructive pulmonary disease, unspecified; N40.0 Benign prostatic hyperplasia without lower urinary tract symptoms; F17.210 Nicotine dependence, cigarettes, uncomplicated; R00.0 Tachycardia, unspecified; D64.9 Anemia, unspecified
CPT/HCPCS: 36415; 71045-TC-FY; 71275-TC; 74177-TC; 76775-TC; 80053; 82272; 82607; 82728; 82746; 83540; 83550; 83615; 83690; 84484; 85025; 85027; 85379; 85610; 86140; 86850; 86900; 86901; 87804; 93005; 93010; 93306-TC; 99285-25; C9803; Q2036; Q9967; U0003

== ENCOUNTER 2021-11-15 04:33 | Inpatient (IN) | payer OTHER ==
[2021-11-15] MEDS ORDERED: morphine CARPU-JECT 2 MG/1 ML DISP.SYRIN IVPUSH ONE (05:50)
[2021-11-15] MEDS ORDERED: morphine SULFATE 4 MG/ML VIAL ONE (06:19)
[2021-11-15 06:43] LABS: VENOUS BASE EXCESS 0.9 mmol/L (-2-2); VENOUS O2 SATURATION 81.8 % (70-80); VENOUS PCO2 41.3 mmHg (38-52); VENOUS PH 7.41 (7.310-7.410)
[2021-11-15 06:51] LABS: BASO % 0.4 % (0-2.0); EOS % 0.7 % (0-4.5); HEMATOCRIT 29.1 % (35.4-49); HEMOGLOBIN 9.2 GM/dL (11.7-16.9); LYMPH % 10.8 % (8-40); MCH 24.5 pg (25.7-33.7); MCHC 31.7 g/dl (32.0-35.9); MEAN CELL VOLUME 77.5 fl (80-96); MEAN PLT VOLUME 8.7 fl (7.5-11.1); MONO % 11.8 % (3.8-10.2); NEUT % 76.3 % (42.8-82.8); PLATELET COUNT 124 10^3/uL (134-434); RBC 3.75 M/mm3 (4.00-5.60); RDW 17.6 % (11.9-15.9); WHITE BLOOD COUNT 4.1 K/mm3 (4.0-10.0)
[2021-11-15] MEDS ORDERED: dilTIAZem HCL 50 MG/10 ML - 10 ML VIAL IVPUSH ONE ×2 (07:00→08:18)
[2021-11-15 07:03] LABS: INR 1.35 (0.83-1.09); PROTHROMBIN TIME (PATIENT) 15.6 SEC (9.7-13.0)
[2021-11-15 07:06] LABS: ACTIVATED PTT 29.6 SECONDS (25.2-36.5)
[2021-11-15 07:27] LABS: CHLORIDE 105 mmol/L (98-107); SODIUM 141 mmol/L (136-145)
[2021-11-15 07:29] LABS: CALCIUM 8.7 mg/dL (8.5-10.1); CO2 27 mmol/L (21-32); GLUCOSE,RANDOM 131 mg/dL (74-106)
[2021-11-15 07:30] LABS: ALBUMIN 3.2 g/dl (3.4-5.0); BLOOD UREA NITROGEN 28.2 mg/dL (7-18)
[2021-11-15 07:33] LABS: CREATININE 1.6 mg/dL (0.55-1.3); SGOT/AST 42 U/L (15-37); SGPT/ALT 27 U/L (13-61)
[2021-11-15 07:34] LABS: BILIRUBIN,TOTAL 1.1 mg/dL (0.2-1); TOT PROT 7.8 g/dl (6.4-8.2)
[2021-11-15 07:35] LABS: ALK PHOS 69 U/L (45-117)
[2021-11-15 07:39] LABS: ANION GAP 9 MMOL/L (8-16)
[2021-11-15] MEDS ORDERED: dilTIAZem HCL 125 MG/25 ML - 25 ML VIAL ONE ×2 (07:39→08:32)
[2021-11-15] MEDS ORDERED: POTASSIUM CHLORIDE 20 MEQ PREMIX IVPB 100 ML IVPB ONE (07:46)
[2021-11-15] MEDS ORDERED: KCL 10 MEQ IVPB 10 MEQ/100 ML INFUS.BAG IVPB ONE ×4 (08:02→14:04)
[2021-11-15] MEDS: KCL 10 MEQ IVPB 10 MEQ/100 ML INFUS.BAG IVPB SCH ×4 (08:09→14:00)
[2021-11-15 08:33] LABS: MAGNESIUM 1.6 mg/dL (1.8-2.4)
[2021-11-15] MEDS ORDERED: MAGNESIUM SULF 50% (8.12 MEQ/2 ML-1 GM VIAL) IVPB ONE (09:50)
[2021-11-15] MEDS ORDERED: dilTIAZem HCL 30 MG TABLET PO ONE (10:14)
[2021-11-15] MEDS ORDERED: dilTIAZem HCL 30 MG TABLET ONE (10:26)
[2021-11-15] MEDS ORDERED: MAGNESIUM SULF 50% (8.12 MEQ/2 ML-1 GM VIAL) ONE (11:08)
[2021-11-15] MEDS ORDERED: MAGNESIUM 1GM/D5W - 1 GM/100 ML IVPB IVPB ONE (11:09)
[2021-11-15] MEDS ORDERED: APIXABAN 2.5 MG TABLET ONE (12:18)
[2021-11-15] MEDS ORDERED: METOPROLOL TARTRATE 5 MG/5 ML VIAL ONE (12:18)
[2021-11-15] MEDS: METOPROLOL TARTRATE 5 MG/5 ML VIAL IVPUSH PRN ×2 (12:36→18:13)
[2021-11-15] MEDS: APIXABAN 2.5 MG TABLET PO SCH ×2 (12:36→21:46)
[2021-11-15] MEDS ORDERED: CEFTRIAXONE 2 GM/100 ML BAG IVPB ONE (16:38)
[2021-11-15] MEDS: CEFTRIAXONE 2 GM in DEXTROSE 5%-WATER 100 ML IVPB SCH (17:05)
[2021-11-15] MEDS: ATORVASTATIN CA 20 MG TABLET (FP) PO SCH (21:46)
[2021-11-15] MEDS: CARVEDILOL 12.5 MG TABLET (FP) PO SCH (21:46)
[2021-11-15] MEDS: TIOTROPIUM BROMIDE 2.5 MCG (SPIRIVA) RESPIMAT INHALER IH SCH (21:46)
[2021-11-15] MEDS ORDERED: PATIENT'S OWN MEDICATION (NON-FORMULARY) (Fluticasone/Salmeterol [Advair Hfa 115-21 Mcg In PO SCH (22:00)
[2021-11-15] MEDS ORDERED: MELATONIN 5 MG TABLETS PO ONE (22:15)
[2021-11-16] MEDS ORDERED: ALBUTEROL SO4 2.5/IPRATROPIUM 0.5 INH SOL 3 ML VIAL.NEB. NEB ONE (00:21)
[2021-11-16] MEDS ORDERED: FUROSEMIDE 40 MG/4 ML INJECTABLE VIAL IVPUSH ONE (01:09)
[2021-11-16] MEDS ORDERED: FUROSEMIDE 40 MG/4 ML INJECTABLE VIAL IVPUSH SCH (06:00)
[2021-11-16] MEDS ORDERED: DEXTROSE 5%-WATER 100 ML IVPB ONE (08:44)
[2021-11-16] MEDS: SPIRONOLACTONE 25 MG TABLET PO SCH (09:06)
[2021-11-16] MEDS: APIXABAN 2.5 MG TABLET PO SCH ×2 (09:06→21:39)
[2021-11-16] MEDS: CARVEDILOL 12.5 MG TABLET (FP) PO SCH ×2 (09:06→21:39)
[2021-11-16] MEDS: TIOTROPIUM BROMIDE 2.5 MCG (SPIRIVA) RESPIMAT INHALER IH SCH (09:22)
[2021-11-16] MEDS: CEFTRIAXONE 2 GM in DEXTROSE 5%-WATER 100 ML IVPB SCH (10:00)
[2021-11-16 11:59] LABS: BASO % 0.2 % (0-2.0); EOS % 0.6 % (0-4.5); HEMATOCRIT 27.8 % (35.4-49); HEMOGLOBIN 8.7 GM/dL (11.7-16.9); LYMPH % 7.8 % (8-40); MCH 24.4 pg (25.7-33.7); MCHC 31.4 g/dl (32.0-35.9); MEAN CELL VOLUME 77.8 fl (80-96); MEAN PLT VOLUME 9.2 fl (7.5-11.1); MONO % 9.4 % (3.8-10.2); PLATELET COUNT 125 10^3/uL (134-434); RBC 3.57 M/mm3 (4.00-5.60); RDW 17.4 % (11.9-15.9); WHITE BLOOD COUNT 4.5 K/mm3 (4.0-10.0)
[2021-11-16 12:26] LABS: ALBUMIN 3.2 g/dl (3.4-5.0); BLOOD UREA NITROGEN 35.9 mg/dL (7-18)
[2021-11-16 12:27] LABS: CALCIUM 8.6 mg/dL (8.5-10.1); MAGNESIUM 1.9 mg/dL (1.8-2.4)
[2021-11-16 12:31] LABS: CREATININE 2.1 mg/dL (0.55-1.3); PHOSPHOROUS 3.7 mg/dL (2.5-4.9)
[2021-11-16 12:32] LABS: BILIRUBIN,TOTAL 1.2 mg/dL (0.2-1); TOT PROT 7.6 g/dl (6.4-8.2)
[2021-11-16 13:44] VITALS: BMI 30.7
[2021-11-16] MEDS ORDERED: ALBUMIN HUMAN 25% 12.5 GM/50 ML VIAL IV SCH (14:00)
[2021-11-16] MEDS: ATORVASTATIN CA 20 MG TABLET (FP) PO SCH (21:39)
[2021-11-17 08:30] LABS: BASO % 0.3 % (0-2.0); EOS % 0.3 % (0-4.5); HEMATOCRIT 28.3 % (35.4-49); HEMOGLOBIN 8.6 GM/dL (11.7-16.9); LYMPH % 8.2 % (8-40); MCH 23.8 pg (25.7-33.7); MCHC 30.4 g/dl (32.0-35.9); MEAN CELL VOLUME 78.3 fl (80-96); MEAN PLT VOLUME 9.6 fl (7.5-11.1); MONO % 10.9 % (3.8-10.2); NEUT % 80.3 % (42.8-82.8); PLATELET COUNT 127 10^3/uL (134-434); RBC 3.61 M/mm3 (4.00-5.60); RDW 17.9 % (11.9-15.9); WHITE BLOOD COUNT 4.8 K/mm3 (4.0-10.0)
[2021-11-17 08:52] LABS: CALCIUM 8.5 mg/dL (8.5-10.1)
[2021-11-17 08:53] LABS: ALBUMIN 3.2 g/dl (3.4-5.0); BLOOD UREA NITROGEN 46.3 mg/dL (7-18)
[2021-11-17 08:56] LABS: CREATININE 2.5 mg/dL (0.55-1.3)
[2021-11-17 08:57] LABS: BILIRUBIN,TOTAL 1.1 mg/dL (0.2-1); TOT PROT 7.7 g/dl (6.4-8.2)
[2021-11-17] MEDS ORDERED: DEXTROSE 5%-WATER 100 ML IVPB ONE (09:21)
[2021-11-17] MEDS: SPIRONOLACTONE 25 MG TABLET PO SCH (10:33)
[2021-11-17] MEDS: FUROSEMIDE 40 MG/4 ML INJECTABLE VIAL IVPUSH SCH (10:34)
[2021-11-17] MEDS: CARVEDILOL 12.5 MG TABLET (FP) PO SCH ×2 (10:35→22:35)
[2021-11-17] MEDS: CEFTRIAXONE 2 GM in DEXTROSE 5%-WATER 100 ML IVPB SCH (10:42)
[2021-11-17] MEDS: TIOTROPIUM BROMIDE 2.5 MCG (SPIRIVA) RESPIMAT INHALER IH SCH (10:43)
[2021-11-17 17:44] LABS: EPI CELLS 3 /uL (0-25.1); HYALINE CASTS 1 /uL (0-3.1); URINE APPEARANCE CLEAR; URINE BACTERIA 0 /uL (0-1359); URINE BILIRUBIN NEGATIVE (NEGATIVE); URINE COLOR YELLOW; URINE GLUCOSE (UA) NEGATIVE (NEGATIVE); URINE KETONE TRACE (NEGATIVE); URINE LEUK ESTERASE NEGATIVE (NEGATIVE); URINE NITRITE NEGATIVE (NEGATIVE); URINE PROTEIN 1+ (NEGATIVE); URINE RBC 8 /uL (0-23.9); URINE UROBILINOGEN 0.2 mg/dL (0.2-1.0); URINE WBC 3 /uL (0-25.8)
[2021-11-17] MEDS ORDERED: PATIENT'S OWN MEDICATION (NON-FORMULARY) (Ipratropium Bromide [Atrovent Hfa] 12.9 GM Hfa.A IH SCH (22:00)
[2021-11-17] MEDS: ATORVASTATIN CA 20 MG TABLET (FP) PO SCH (22:35)
[2021-11-17] MEDS: SACUBITRIL/VALSARTAN 24 MG-26 MG TABLET PO SCH (22:35)
[2021-11-18 08:07] LABS: CALCIUM 8.6 mg/dL (8.5-10.1)
[2021-11-18 08:08] LABS: ALBUMIN 3.2 g/dl (3.4-5.0); BLOOD UREA NITROGEN 48.5 mg/dL (7-18)
[2021-11-18 08:11] LABS: CREATININE 2.2 mg/dL (0.55-1.3)
[2021-11-18 08:12] LABS: TOT PROT 7.4 g/dl (6.4-8.2)
[2021-11-18 08:13] LABS: BILIRUBIN,TOTAL 0.8 mg/dL (0.2-1)
[2021-11-18 08:21] LABS: BASO % 0.3 % (0-2.0); EOS % 0.2 % (0-4.5); HEMATOCRIT 29.1 % (35.4-49); HEMOGLOBIN 9.2 GM/dL (11.7-16.9); LYMPH % 6.3 % (8-40); MCH 24.6 pg (25.7-33.7); MCHC 31.6 g/dl (32.0-35.9); MEAN CELL VOLUME 77.8 fl (80-96); MEAN PLT VOLUME 9.5 fl (7.5-11.1); MONO % 10.7 % (3.8-10.2); NEUT % 82.5 % (42.8-82.8); PLATELET COUNT 135 10^3/uL (134-434); RBC 3.74 M/mm3 (4.00-5.60); RDW 17.5 % (11.9-15.9); WHITE BLOOD COUNT 5.5 K/mm3 (4.0-10.0)
[2021-11-18] MEDS ORDERED: DEXTROSE 5%-WATER 100 ML IVPB ONE (09:46)
[2021-11-18] MEDS: SACUBITRIL/VALSARTAN 24 MG-26 MG TABLET PO SCH ×2 (10:34→21:25)
[2021-11-18] MEDS: CARVEDILOL 12.5 MG TABLET (FP) PO SCH ×2 (10:35→21:21)
[2021-11-18] MEDS: SPIRONOLACTONE 25 MG TABLET PO SCH (10:35)
[2021-11-18] MEDS: CEFTRIAXONE 2 GM in DEXTROSE 5%-WATER 100 ML IVPB SCH (10:35)
[2021-11-18] MEDS: FUROSEMIDE 40 MG/4 ML INJECTABLE VIAL IVPUSH SCH (10:35)
[2021-11-18] MEDS: TIOTROPIUM BROMIDE 2.5 MCG (SPIRIVA) RESPIMAT INHALER IH SCH (10:36)
[2021-11-18] MEDS ORDERED: POTASSIUM CHLORIDE TABS 20 MEQ TABLET.ER (FP) PO ONE ×2 (11:45→15:45)
[2021-11-18] MEDS: ATORVASTATIN CA 20 MG TABLET (FP) PO SCH (21:21)
[2021-11-19] MEDS: BENZOCAINE/MENTH/CETYLPYRD CL 1 EACH LOZENGE MM PRN ×2 (02:33→10:06)
[2021-11-19] MEDS ORDERED: ACETAMINOPHEN 1000 MG/100 ML BAG IVPB ONE (05:49)
[2021-11-19 07:57] LABS: BASO % 0.5 % (0-2.0); EOS % 0.5 % (0-4.5); HEMATOCRIT 27.8 % (35.4-49); HEMOGLOBIN 8.9 GM/dL (11.7-16.9); LYMPH % 6.9 % (8-40); MCH 24.8 pg (25.7-33.7); MCHC 32.2 g/dl (32.0-35.9); MEAN CELL VOLUME 77.2 fl (80-96); MONO % 10.9 % (3.8-10.2); NEUT % 81.2 % (42.8-82.8); PLATELET COUNT 128 10^3/uL (134-434); RDW 17.8 % (11.9-15.9); WHITE BLOOD COUNT 5.8 K/mm3 (4.0-10.0)
[2021-11-19 08:06] LABS: ALBUMIN 2.9 g/dl (3.4-5.0); BLOOD UREA NITROGEN 48.7 mg/dL (7-18)
[2021-11-19 08:10] LABS: BILIRUBIN,TOTAL 0.6 mg/dL (0.2-1)
[2021-11-19] MEDS ORDERED: DEXTROSE 5%-WATER 100 ML IVPB ONE (09:23)
[2021-11-19] MEDS: CEFTRIAXONE 2 GM in DEXTROSE 5%-WATER 100 ML IVPB SCH (09:30)
[2021-11-19] MEDS: FUROSEMIDE 40 MG/4 ML INJECTABLE VIAL IVPUSH SCH (09:30)
[2021-11-19] MEDS: SACUBITRIL/VALSARTAN 24 MG-26 MG TABLET PO SCH ×2 (10:05→21:13)
[2021-11-19] MEDS: TIOTROPIUM BROMIDE 2.5 MCG (SPIRIVA) RESPIMAT INHALER IH SCH (10:06)
[2021-11-19] MEDS: SPIRONOLACTONE 25 MG TABLET PO SCH (10:06)
[2021-11-19] MEDS: CARVEDILOL 12.5 MG TABLET (FP) PO SCH ×2 (10:06→21:13)
[2021-11-19] MEDS: ATORVASTATIN CA 20 MG TABLET (FP) PO SCH (21:13)
[2021-11-20 07:31] LABS: BASO % 0.3 % (0-2.0); EOS % 0.5 % (0-4.5); HEMATOCRIT 28.2 % (35.4-49); HEMOGLOBIN 8.8 GM/dL (11.7-16.9); LYMPH % 7.9 % (8-40); MCH 24.5 pg (25.7-33.7); MCHC 31.4 g/dl (32.0-35.9); MEAN PLT VOLUME 9.2 fl (7.5-11.1); MONO % 11.5 % (3.8-10.2); NEUT % 79.8 % (42.8-82.8); PLATELET COUNT 130 10^3/uL (134-434); RBC 3.61 M/mm3 (4.00-5.60); RDW 17.4 % (11.9-15.9); WHITE BLOOD COUNT 5.8 K/mm3 (4.0-10.0)
[2021-11-20] MEDS ORDERED: DEXTROSE 5%-WATER 100 ML IVPB ONE (07:53)
[2021-11-20 08:03] LABS: CALCIUM 8.7 mg/dL (8.5-10.1)
[2021-11-20 08:04] LABS: ALBUMIN 2.9 g/dl (3.4-5.0); BLOOD UREA NITROGEN 44.1 mg/dL (7-18)
[2021-11-20 08:07] LABS: CREATININE 1.9 mg/dL (0.55-1.3)
[2021-11-20 08:08] LABS: BILIRUBIN,TOTAL 0.8 mg/dL (0.2-1)
[2021-11-20 08:09] LABS: TOT PROT 6.9 g/dl (6.4-8.2)
[2021-11-20] MEDS: CEFTRIAXONE 2 GM in DEXTROSE 5%-WATER 100 ML IVPB SCH (09:22)
[2021-11-20] MEDS: TIOTROPIUM BROMIDE 2.5 MCG (SPIRIVA) RESPIMAT INHALER IH SCH (09:23)
[2021-11-20] MEDS: FUROSEMIDE 40 MG/4 ML INJECTABLE VIAL IVPUSH SCH (09:37)
[2021-11-20] MEDS: CARVEDILOL 12.5 MG TABLET (FP) PO SCH ×2 (09:37→21:13)
[2021-11-20] MEDS: SPIRONOLACTONE 25 MG TABLET PO SCH (09:37)
[2021-11-20] MEDS: SACUBITRIL/VALSARTAN 24 MG-26 MG TABLET PO SCH ×2 (09:37→21:13)
[2021-11-20] MEDS: MIDODRINE HCL 2.5 MG TABLET PO SCH ×2 (10:12→17:32)
[2021-11-20] MEDS ORDERED: POTASSIUM CHLORIDE TABS 10 MEQ TABLET.ER (FP) PO ONE (10:43)
[2021-11-20] MEDS ORDERED: FUROSEMIDE 40 MG/4 ML INJECTABLE VIAL IVPUSH ONE (11:32)
[2021-11-20] MEDS ORDERED: HEPARIN NA (PORCINE) 5,000 UNITS/ML 1ML VIAL IVPUSH ONE (11:35)
[2021-11-20 17:27] LABS: ARTERIAL BLD GAS O2 SATURATION 98.9 % (95-98); ARTERIAL BLOOD GAS BASE EXCESS -0.9 mmol/L (-2-2); ARTERIAL BLOOD GAS PO2 147.9 mmHg (80-100); ARTERIAL BLOOD GAS pH 7.383 (7.350-7.450)
[2021-11-20 17:28] LABS: ALLENS TEST POSITIVE
[2021-11-20 17:29] LABS: VENT MODE PSV; VENT RATE 10
[2021-11-20] MEDS: ATORVASTATIN CA 20 MG TABLET (FP) PO SCH (21:13)
[2021-11-20] MEDS ORDERED: MELATONIN 5 MG TABLETS PO PRN (21:18)
[2021-11-21] MEDS ORDERED: DEXTROSE 5%-WATER 100 ML IVPB ONE (08:31)
[2021-11-21] MEDS ORDERED: HEPARIN NA (PORCINE) 5,000 UNITS/ML 1ML VIAL IVPUSH PRN ×2 (09:28)
[2021-11-21] MEDS: SPIRONOLACTONE 25 MG TABLET PO SCH (09:30)
[2021-11-21] MEDS ORDERED: HEPARIN SOD,PORK IN 0.45% NACL 25,000 UNITS/500 ML INFUS.BAG IVPB SCH (09:30)
[2021-11-21] MEDS: MIDODRINE HCL 2.5 MG TABLET PO SCH (09:31)
[2021-11-21] MEDS: CARVEDILOL 12.5 MG TABLET (FP) PO SCH ×2 (09:31→21:31)
[2021-11-21] MEDS: TIOTROPIUM BROMIDE 2.5 MCG (SPIRIVA) RESPIMAT INHALER IH SCH (09:32)
[2021-11-21] MEDS: SACUBITRIL/VALSARTAN 24 MG-26 MG TABLET PO SCH ×2 (09:32→21:32)
[2021-11-21] MEDS: FUROSEMIDE 40 MG/4 ML INJECTABLE VIAL IVPUSH SCH (09:32)
[2021-11-21] MEDS: CEFTRIAXONE 2 GM in DEXTROSE 5%-WATER 100 ML IVPB SCH (09:32)
[2021-11-21 11:43] LABS: INR 1.57 (0.83-1.09); PROTHROMBIN TIME (PATIENT) 18.1 SEC (9.7-13.0)
[2021-11-21 11:45] LABS: ACTIVATED PTT 30.2 SECONDS (25.2-36.5)
[2021-11-21] MEDS ORDERED: POTASSIUM CHLORIDE TABS 20 MEQ TABLET.ER (FP) PO ONE ×2 (13:00→16:30)
[2021-11-21 15:13] VITALS: BP 104/49; TEMP 97.7
[2021-11-21] MEDS ORDERED: DIGOXIN 0.25 MG TABLET PO ONE (20:11)
[2021-11-21] MEDS: ATORVASTATIN CA 20 MG TABLET (FP) PO SCH (21:31)
[2021-11-21 21:32] VITALS: PULSE 109
[2021-11-22 13:07] LABS: SARS-CoV-2 NAA Not Detected (Not Detected)
[2021-11-22 16:08] LABS: ATYPICAL pANCA <1:20 titer (Neg:<1:20); C-ANCA <1:20 titer (Neg:<1:20)
== END 2021-11-21 22:28 | disposition short-term general hospital (02) | DRG 291 ==
LOC: JER 04:33 → JERBED 07:27 → J4W 17:45
PROVIDERS: ADMIT Internal Medicine
DX: I13.0 Hypertensive heart and chronic kidney disease with heart failure and stage 1 through stage 4 chronic kidney disease, or unspecified chronic kidney disease (principal); J96.01 Acute respiratory failure with hypoxia; I50.23 Acute on chronic systolic (congestive) heart failure; N17.9 Acute kidney failure, unspecified; K81.0 Acute cholecystitis; J44.1 Chronic obstructive pulmonary disease with (acute) exacerbation; I48.19 Other persistent atrial fibrillation; J44.9 Chronic obstructive pulmonary disease, unspecified; I25.2 Old myocardial infarction; I25.10 Atherosclerotic heart disease of native coronary artery without angina pectoris; Z95.810 Presence of automatic (implantable) cardiac defibrillator; K74.60 Unspecified cirrhosis of liver; E78.5 Hyperlipidemia, unspecified; E87.6 Hypokalemia; D64.9 Anemia, unspecified; E66.9 Obesity, unspecified; Z68.31 Body mass index [BMI] 31.0-31.9, adult; F32.A Depression, unspecified; N18.9 Chronic kidney disease, unspecified; B19.20 Unspecified viral hepatitis C without hepatic coma; R13.10 Dysphagia, unspecified; I95.9 Hypotension, unspecified
CPT/HCPCS: 36415; 36600; 71045-TC-FY; 74177-TC; 76705-TC; 76775-TC; 80051; 80053; 81003; 82140; 82553; 82570; 82803; 83520; 83605; 83735; 83880; 84100; 84155; 84165; 84484; 85025; 85610; 85730; 86038; 86225; 86256; 87040; 93005; 93010; 93306-TC; 94660; 99285-25; C9803-CS; J1644; P9047; Q9967; U0003; U0005

== ENCOUNTER 2022-03-10 14:18 | Emergency (ER) | payer OTHER ==
[2022-03-10 14:32] VITALS: RESP 18; BMI 26.4
[2022-03-10] MEDS ORDERED: AMOX TR/POT CLAV 875MG/125MG TABLETS (FP) PO ONE (16:13)
[2022-03-10] MEDS ORDERED: ACETAMINOPHEN 500 MG TABLET (FP) PO ONE (16:13)
[2022-03-10] MEDS ORDERED: AMOX TR/POT CLAV 875MG/125MG TABLETS (FP) ONE (16:17)
[2022-03-10] MEDS ORDERED: ACETAMINOPHEN 325 MG TABLET (FP) ONE (16:17)
[2022-03-10 16:38] LABS: BASO % 0.6 % (0-2.0); EOS % 1.5 % (0-4.5); HEMATOCRIT 29.7 % (35.4-49); HEMOGLOBIN 9.6 GM/dL (11.7-16.9); LYMPH % 11.4 % (8-40); MCH 27.2 pg (25.7-33.7); MCHC 32.3 g/dl (32.0-35.9); MEAN CELL VOLUME 84.1 fl (80-96); MEAN PLT VOLUME 8.5 fl (7.5-11.1); MONO % 14.7 % (3.8-10.2); NEUT % 71.8 % (42.8-82.8); PLATELET COUNT 118 10^3/uL (134-434); RBC 3.53 M/mm3 (4.00-5.60); RDW 19.5 % (11.9-15.9); WHITE BLOOD COUNT 3.8 K/mm3 (4.0-10.0)
[2022-03-10 16:40] LABS: URINE APPEARANCE CLEAR; URINE BILIRUBIN NEGATIVE (NEGATIVE); URINE COLOR YELLOW; URINE GLUCOSE (UA) NEGATIVE (NEGATIVE); URINE KETONE NEGATIVE (NEGATIVE); URINE LEUK ESTERASE NEGATIVE (NEGATIVE); URINE NITRITE NEGATIVE (NEGATIVE); URINE PROTEIN NEGATIVE (NEGATIVE)
[2022-03-10 16:51] LABS: INR 1.19 (0.83-1.09); PROTHROMBIN TIME (PATIENT) 13.7 SEC (9.7-13.0)
[2022-03-10 16:53] LABS: CALCIUM 9.2 mg/dL (8.5-10.1)
[2022-03-10 16:53] LABS: ACTIVATED PTT 30.4 SECONDS (25.2-36.5)
[2022-03-10 16:54] LABS: ALBUMIN 3.3 g/dl (3.4-5.0)
[2022-03-10 16:57] LABS: CREATININE 1.2 mg/dL (0.55-1.3)
[2022-03-10 16:59] LABS: BILIRUBIN,TOTAL 0.8 mg/dL (0.2-1); TOT PROT 7.1 g/dl (6.4-8.2)
[2022-03-10 17:48] VITALS: BP 110/68; PULSE 70; TEMP 98
== END 2022-03-10 18:10 | disposition home or self-care (01) ==
LOC: JER 14:18
DX: N48.29 Other inflammatory disorders of penis (principal)
CPT/HCPCS: 36415; 80053; 81003; 85025; 85610; 85730; 86850; 86900; 86901; 87086; 99284-25